=== PATIENT | female | born 1970 | race Caucasian/White ===

== ENCOUNTER 2020-05-14 15:41 | Emergency (ER) | payer BC, SELFPAY ==
[2020-05-14 15:42] VITALS: BP 123/74; PULSE 98; RESP 18; TEMP 36.6; O2SAT 98; BMI 29.0
--- NOTE | 2020-05-14 16:00 | CT_ITS ---
PROCEDURE: CT ABDOMEN PELVIS WO CON CLINICAL INDICATION: abd pain COMPARISON: No exams were available for comparison TECHNIQUE: Axial images obtained with sagittal and coronal reformats. All CT scans at the facility use one or more dose reduction, viz: automated exposure control, ma/kV adjustment per patient size (including targeted exams where dose is matched to indication, i.e. head), or iterative reconstruction technique. FINDINGS: LOWER THORAX: No acute finding ABDOMEN & PELVIS: There is fatty liver infiltration. No focal liver lesion is demonstrated. The gallbladder, spleen, adrenal glands, and pancreas have an unremarkable appearance. No intestinal obstruction or free air. Unremarkable appendix. No evidence diverticulitis. There has been a prior hysterectomy. There is a 5.6 cm cystic lesion in the left adnexa and a 3 cm cyst in the right adnexa.. No cul-de-sac fluid. No acute bony anomalies. Small bone island is present in the left femoral neck. IMPRESSION: 1. Prior hysterectomy. There are bilateral adnexal cysts measuring up to 5.6 cm on the left and 3 cm on the right consistent with bilateral ovarian cyst. Pelvic ultrasound may provide further evaluation 2. Otherwise negative Dictated by: Aki Parish MD 05/14/2020 16:53 Electronically signed by Aki Parish MD in [place] 05/14/2020 16:53
[2020-05-14 16:08] LABS: Microscopic, Urine URINE MICROSCOPIC (MICROSCOPIC)
[2020-05-14 16:09] LABS: Appearance,Urine CLEAR (Clear); Bilirubin,Urine Negative (Negative); Blood, Urine Negative (Negative); Color,Urine YELLOW (Yellow); Glucose,Urine (UA) Negative (Negative); Ketones,Urine Negative (Negative); Leukocyte Esterase,Urine Negative (Negative); Nitrate,Urine Negative (Negative); Protein,Urine Negative (Negative); Specific Gravity, Urine >= 1.030 (1.005-1.030); Urobilinogen,Urine 0.2 EU/dl (0.2)
[2020-05-14 16:14] LABS: WBC,Urine Occasional #/hpf (0-3)
[2020-05-14 16:23] LABS: Basophils # 0.1 K/mm3 (0-0.2); Basophils % 0.6 % (0.1-2.0); Eosinophils # 0.3 K/mm3 (0.0-0.4); Eosinophils % 2.7 % (0.1-12.0); Hematocrit 40.2 % (37.0-47.0); Hemoglobin 14.1 g/dL (12.2-16.2); Lymphocytes # 3.4 K/mm3 (0.7-4.5); Lymphocytes % 30.2 % (10-50); Mean Corpuscular HGB Conc 35.1 g/dL (31.8-35.4); Mean Corpuscular Hemoglobin 31.4 pg (27.0-31.2); Mean Corpuscular Volume 89.5 fl (81-99); Mean Platelet Volume 8.2 fl (7.4-10.4); Monocytes # 0.7 K/mm3 (0.1-1.0); Monocytes % 5.9 % (1.7-9.3); Neutrophils # 6.7 K/mm3 (1.8-7.8); Neutrophils % 60.6 % (37.0-80.0); Platelet Count 250 K/mm3 (142-424); Red Blood Count 4.49 M/mm3 (4.20-5.40); Red Cell Distribution Width 12.4 % (11.5-17.5); White Blood Count 11.1 K/mm3 (4.8-10.8)
--- NOTE | 2020-05-14 16:28 | PC.NURSE ---
Pt returned from rad.
[2020-05-14 16:29] LABS: Lipase 160 U/L (23-300)
[2020-05-14 16:30] LABS: Alanine Aminotransferase 30 U/L (12-78); Albumin Level 4.2 g/dl (3.5-5.0); Albumin/Globulin Ratio 1.3 (1.1-1.8); Alkaline Phosphatase 32 U/L (38-126); Amylase 84 U/L (30-110); Anion Gap 12.8 mEq/L (5-15); Aspartate Amino Transferase 39 U/L (14-36); Bilirubin,Total 0.6 mg/dl (0.2-1.3); Blood Urea Nitrogen 14 mg/dl (7-17); Calcium 9.7 mg/dl (8.4-10.2); Carbon Dioxide 26 mmol/L (22.0-30.0); Chloride 102 mmol/L (98-107); Creatinine Clearance Estimated 108 mL/min (50-200); Estimated Glomerular Filt Rate 76 ml/min (>60); GFR (African American) 92 ML/MIN (>60); Globulin 3.3 g/dL (1.3-3.2); Glucose 106 mg/dl (74-100); Potassium 3.8 mmoL/L (3.5-5.1); Sodium 137 mmol/L (136-145); Total Protein,Serum 7.5 g/dl (6.3-8.2)
[2020-05-14 16:35] LABS: C-Reactive Protein 5.7 mg/L (0-4)
[2020-05-14 16:58] LABS: Erythrocyte Sedimentation Rate 15 mm/hr (0-20)
--- NOTE | 2020-05-14 17:05 | HMH.EDABDPAI ---
ED Disposition Clinical Impression: Abdominal pain, IBS (irritable bowel syndrome) Disposition: Home, Self-Care Condition on Discharge: Good Instructions: DI for Chronic Pain -- Adult Prescriptions: Promethazine HCl [Phenergan 25mg tablet] 25 mg PO Q6HP PRN 8 Days #30 tab PRN Reason: Nausea Transmission Status: Pending to [id number] Hyoscyamine Sulfate 0.125 mg PO QID 10 Days #30 tab Transmission Status: Pending to [id number] Referrals: PCP,No [Primary Care Provider] - - Critical Care Critical Care Time: No Attestation: On 05/14/20, the high probability of a clinically significant, sudden or life threatening deterioration of the following system(s) required my full and direct attention, intervention and personal management. The time I documented below is in addition to time spent performing reported procedures but includes the following listed in this critical care notation. Medical Decision Making - Medical Records Medical records reviewed: Yes: I reviewed the patient's medical records. - Bandar Inquiry Pt receiving controlled substance: No Vital Signs: 05/14/20 15:42 Temperature 98 F Temperature Source Oral Pulse Rate [Left Radial] 98 H Respiratory Rate 18 Blood Pressure [Right Arm] 123/74 Blood Pressure Mean [Right Arm] 90 Blood Pressure Position [Right Arm] Sitting 02 Sat by Pulse Oximetry 98 Oxygen Delivery Method Room Air - Lab Data Lab results reviewed: Yes: I reviewed the patient's lab results. Lab Results 05/14/20 15:52: Urine Color Yellow, Urine Appearance Clear, Urine pH 6.0, Ur Specific [place] >= 1.030, Urine Protein Negative, Urine Glucose (UA) Negative, Urine Ketones Negative, Urine Blood Negative, Urine Nitrate Negative, Urine Bilirubin Negative, Urine Urobilinogen 0.2, Ur Leukocyte Esterase Negative, Urine RBC None, Urine WBC Occasional, Ur Squamous Epith Cells 5-10, Urine Bacteria None 05/14/20 16:05: WBC 11.1 H, RBC 4.49, Hgb 14.1, Hct 40.2, MCV 89.5, MCH 31.4 H, MCHC 35.1, RDW 12.4, Plt Count 250, MPV 8.2, Neut % (Auto) 60.6, Lymph % (Auto) 30.2, [place] % (Auto) 5.9, Eos % (Auto) 2.7, Baso % (Auto) 0.6, Neut # (Auto) 6.7, Lymph # (Auto) 3.4, [place] # (Auto) 0.7, Eos # (Auto) 0.3, Baso # (Auto) 0.1 05/14/20 16:05: Sodium 137, Potassium 3.8, Chloride 102, Carbon Dioxide 26, Anion Gap 12.8, BUN 14, Creatinine 0.80, Estimated Creat Clear 108, Estimated GFR 76, Est GFR ( Amer) 92, Glucose 106 H, Calcium 9.7, Total Bilirubin 0.6, AST 39 H, ALT 30, Alkaline Phosphatase 32 L, C-Reactive Protein 5.7 H, Total Protein 7.5, Albumin 4.2, Globulin 3.3 H, Albumin/Globulin Ratio 1.3, Amylase 84 05/14/20 16:05: ESR 15 05/14/20 16:05: Lipase 160 Result diagrams: 05/14/20 16:05 05/14/20 16:05 Orders (Tests/Meds): ED MEDICATIONS Generic Name Dose Route Start Last Admin Trade Name Freq PRN Reason Stop Dose Admin Sodium Chloride 1,000 mls @ 999 mls/hr 05/14/20 16:15 05/14/20 16:20 Sod Chlor 0.9% 1000ml Bag IV 05/14/20 17:15 999 mls/hr .Q1H1M AMIRAH Administration Discontinued Medications Generic Name Dose Route Start Last Admin Trade Name Freq PRN Reason Stop Dose Admin Hydromorphone HCl 1 mg 05/14/20 16:20 05/14/20 16:21 Dilaudid 2mg/Ml Syringe IV 05/14/20 16:21 1 mg ONCE ONE Administration Ondansetron HCl 4 mg 05/14/20 16:02 05/14/20 16:20 Zofran 4mg/2ml Vial IV 05/14/20 16:03 4 mg ONCE ONE Administration - CT Data CT Scan: Abdomen, Pelvis Time Received: 17:[address] Reviewed: Yes: I have reviewed the patient's CT results Preliminary Findings: Abnormal (Patient had a benign abdomen but did have a cyst on her right left ovary status post icterus hysterectomy) Abdominal Pain HPI - General Chief Complaint: Abdominal Pain Stated Complaint: Bad stomach pain two days, has IBS Time Seen by Provider: 05/14/20 17:05 Mode of Arrival: Ambulatory Limitations: No Limitations Description of Symptoms (Recalled from ER Triage Do
[2020-05-14 17:42] VITALS: BP 115/74; PULSE 78; RESP 16; TEMP 36.6; O2SAT 98
== END 2020-05-14 17:45 | disposition home or self-care (01) ==
PROVIDERS: Emergency Provider Family Medicine; PCP Physician Assistant
DX: K58.9 Irritable bowel syndrome, unspecified (principal)
CPT/HCPCS: 74176; 80053; 81001; 82150; 83690; 85025; 85651; 86140; 96365; 96374; 96375; 99283; J2405

== ENCOUNTER → 2020-05-18 15:33 | Outpatient (CLI) | payer BC, SELFPAY ==
--- NOTE | 2020-05-18 15:35 | US_ITS ---
PROCEDURE: US TRANSVAGINAL CLINICAL INDICATION: US T/V-f/u on ovarian cyst bilateral Large ovarian cyst was seen on recent CT exam. COMPARISON: CT ABDOMEN PELVIS WO CON from 05/14/2020 FINDINGS: Ultrasound evaluation of the female pelvis was performed transvaginally with real-time static grayscale and color Doppler imaging technique. UTERUS: Is surgically absent. LEFT OVARY: 6.4cmx5.0cmx5.1cm with a volume of 86.8ml. There is a 6.0 x 5.0 x 5.0 centimeter large cyst with a 2.9 x 2.4 centimeter daughter cyst with Doppler color flow along the cooney is seen. RIGHT OVARY: 4cmx 4mcq1dh with a volume of 10ml. There is a 2.5 x 1.3 centimeter unilocular cyst seen attached to the right ovary. Normal Doppler vascular color flow is seen in both ovaries. Neck No free fluid is seen within the pelvis. IMPRESSION: 1.A 6 centimeter large left ovarian cyst with internal septation or a 2.9 centimeter daughter cyst is seen, most likely benign. Follow-up with short-term ultrasound exam in 6 months recommended. 2. A 2.5 centimeter right ovarian simple cyst. 3. Prior hysterectomy. Dictated by: Pooja Robins 05/18/2020 16:25 Electronically signed by Pooja Robins in [place] 05/18/2020 16:25
== END ==
PROVIDERS: PCP Physician Assistant; Visit Provider Obstetrics & Gynecology
DX: N83.209 Unspecified ovarian cyst, unspecified side (principal)
CPT/HCPCS: 76830

== ENCOUNTER → 2020-05-20 14:27 | Outpatient (CLI) | payer BC, SELFPAY ==
[2020-05-20 15:42] LABS: Chloride 101 mmol/L (98-107); Potassium 3.9 mmoL/L (3.5-5.1); Sodium 138 mmol/L (136-145)
[2020-05-20 15:44] LABS: HCG Qualitative, Serum Negative (Negative)
[2020-05-20 15:45] LABS: Alanine Aminotransferase 20 U/L (12-78); Albumin Level 4.2 g/dl (3.5-5.0); Albumin/Globulin Ratio 1.4 (1.1-1.8); Alkaline Phosphatase 27 U/L (38-126); Anion Gap 13.9 mEq/L (5-15); Aspartate Amino Transferase 26 U/L (14-36); Bilirubin,Total 0.4 mg/dl (0.2-1.3); Blood Urea Nitrogen 10 mg/dl (7-17); Calcium 9.6 mg/dl (8.4-10.2); Carbon Dioxide 27 mmol/L (22.0-30.0); Estimated Glomerular Filt Rate 89 ml/min (>60); GFR (African American) 107 ML/MIN (>60); Globulin 2.9 g/dL (1.3-3.2); Glucose 124 mg/dl (74-100); Total Protein,Serum 7.1 g/dl (6.3-8.2)
[2020-05-20 16:58] LABS: Coronavirus 19 IgG Antibody Negative (Negative); Coronavirus 19 IgM Antibody Negative (Negative)
[2020-05-20 18:51] LABS: Basophils # 0.1 K/mm3 (0-0.2); Basophils % 0.6 % (0.1-2.0); Eosinophils # 0.3 K/mm3 (0.0-0.4); Hematocrit 38.6 % (37.0-47.0); Hemoglobin 13.9 g/dL (12.2-16.2); Lymphocytes % 31.7 % (10-50); Mean Corpuscular HGB Conc 36.1 g/dL (31.8-35.4); Mean Corpuscular Hemoglobin 32.7 pg (27.0-31.2); Mean Corpuscular Volume 90.7 fl (81-99); Mean Platelet Volume 9.5 fl (7.4-10.4); Monocytes # 0.5 K/mm3 (0.1-1.0); Monocytes % 3.9 % (1.7-9.3); Neutrophils # 7.7 K/mm3 (1.8-7.8); Neutrophils % 61.8 % (37.0-80.0); Platelet Count 237 K/mm3 (142-424); Red Blood Count 4.25 M/mm3 (4.20-5.40); White Blood Count 12.5 K/mm3 (4.8-10.8)
[2020-05-22 19:23] LABS: Cancer Antigen (CA) 125 10.5 U/mL (0.0-38.1); FSH 4.4 mIU/mL (.)
== END ==
PROVIDERS: Visit Provider Obstetrics & Gynecology
DX: Z01.818 Encounter for other preprocedural examination (principal); N83.209 Unspecified ovarian cyst, unspecified side; R10.2 Pelvic and perineal pain; N80.9 Endometriosis, unspecified
CPT/HCPCS: 36415; 80053; 83001; 84703; 85025; 86316; 86328

== ENCOUNTER 2020-05-21 08:49 | Day surgery (SDC) | payer BC, SELFPAY ==
[2020-05-21] VITALS (12 sets, daily range): BP systolic 91–126; BP diastolic 69–86; PULSE 65–93; RESP 12–18; TEMP 36.8–37.2; O2SAT 93–99; BMI 30.7
--- NOTE | 2020-05-21 13:00 | HMH.ANESI ---
[facility] Anesthesia Record Part I Intake, IV Amount: 900 Estimated blood loss (mL): 30 Urine output (mL): 0 (NM) Blood Products used (#): none Blood Pressure: 91/69 SaO2: 96 Pulse Rate: 93 Respiratory Rate: 12 Temperature: 99 F Patient is:: Awake, Drowsy, Nasal O2, Stable Stable to PACU at:: 12:52
--- NOTE | 2020-05-21 13:04 | P.PN_ITS ---
[facility] Anesthesia Checklist - Patient Identification Patient Identification: Arm Band, Verbal (Name & ) - Structural Data Admitted From: Home Planned Operative Procedure/s: Diagnostic laparoscopy, LSO Consent for Planned Operative Procedure(s) Verified: Yes Verified Documents: Surgical Consent, History and Physical - NPO Status Verified Time NPO: 19:00 - Chart Verification Results Verified: CBC, BMP, UA - Additional verifications Anesthesia Reactions: No Hx Blood Transfusions: No Blood Transfusion Reaction: No - Airway Assessment C-Spine Mobility Assessed: Yes TMJ Mobility Assessed: Yes Dentition: Good Dentition (missing) - Neurological Assessment Level of Consciousness: Awake, Alert, Appropriate, Follows Commands Hx Seizures: No Numbness or tingling in extremities: No - Anesthesia Plan Anesthesia Risk discussed: Yes Anesthesia Plan: Verified ASA Class: II Anesthesia Type: General [facility] History I have reviewed the patient's past medical history: Yes Medical History: Reports:: Anxiety, Depression, Gastroesophageal Reflux Disease(GERD), Hyperlipidemia, Hypertension Denies:: Cancer, Diabetes Mellitus Type 1, Diabetes Mellitus Type 2, Internal Pacemaker, MRSA, Seizures *Have you ever received a pneumonia vaccine?: No *Have you received a flu vaccine this season?: Yes Other Medical History: Denies: Blood Transfusion Reaction Comment:: obesity Anesthesia experience/problems:: No prior complications Laterality Cases: Right: Arthroscopy Knee, Arthroscopy Shoulder Other Surgeries: Yes: Hysterectomy-Partial. No: Pacemaker Amputation: No Fractures: No - *Social History Last grade of school completed: GED Smoking Status: Never smoker Alcohol Intake: never Substance Use Type: denies use *Occupational Status:: employed Housing: house Household Members: spouse *Travel in the last 8 weeks: None Family Hx:: Cancer, Diabetes, Heart Attack, Hyperlipidemia, Hypertension
--- NOTE | 2020-05-21 15:13 | P.OP_ITS ---
Date of procedure: 05/21/20 Pre-op Diagnosis:: 1. Pelvic pain 2. Left adnexal mass 3. Endometriosis 4. Prior hysterectomy Post-op Diagnosis:: 1. Pelvic pain 2. Left adnexal mass 3. Endometriosis 4. Prior hysterectomy 5. Pelvic adhesions Procedure performed:: Diagnostic laparoscopy Left salpingo-oophorectomy Lysis of adhesions Surgeon:: Sarah Beth Mariee MD INSURANCE SALES SUPERVISOR:: Ricky Hernandez Anesthesia: GETA Estimated blood loss (mL): 30 Operative findings:: enlarged left ovary, adhesed to left pelvic sidewall normal appearing right ovary Operative note:: The patient was taken to the operating room and general anesthesia was administered. She was prepped/draped in lithotomy position. A sponge stick was placed in the vagina. Gloves were changed and attention was turned to the abdomen. A 5mm skin incision was made in the umbilical fold and the verees needle was inserted through the peritoneum and into the abdominal cavity in standard fashion. The abdomen was insufflated with CO2 gas. A 5mm non-bladed trocar was inserted directly into the abdominal cavity and appropriate placement was confirmed with the laparoscope. No intra-abdominal injuries occurred during entry into the abdominal cavity, as confirmed visually with the laparoscope. The patient was placed in trendelenburg and a 10mm skin incision was made 2cm above the pubic symphysis. A 10mm non-bladed trocar was inserted under direct visualization, without complication. A survey of the pelvis and abdomen revealed the findings noted above. Pelvic washings were obtained. A 5mm skin incision was made in the left lower quadrant and a non-bladed trocar was inserted under direct visualization, without complication. The adnexal mass was slowly dissected off the left pelvic sidewall, using both sharp and blunt dissection. During this dissection, a portion of the mass ruptured and clear fluid drained out of it. Once the ovary was freed from the sidewall, it was excised using the harmonic scalpel. The mass was removed through the suprapubic incision with the assistance of an endobag. The pelvis was copiously irrigated and the pedicle remained hemostatic. Caro was placed over the pedicle and areas of dissection. The abdomen was then evacuated of gas and all trocars removed. The fascia of the suprapubic incision was closed with 2-0 vicryl. The skin incisions were closed with dermabond. The vaginal sponge stick was removed. All sponge/lap/needle/instrument counts correct. Total EBL: 30 cc. The patient was taken out of lithotomy position, extubated and taken to the PACU in stable condition. Condition: stable Disposition: PACU Complications:: None
--- NOTE | 2020-05-21 15:20 | HMH.ANESII ---
[facility] Anesthesia Record Part II Discharge Time: 13:22 Destination: Surgical Day Care (OP Surgery) PACU nurse assessment reviewed?: Yes Patient Condition:: Good Anesthesia Complications:: None Swallowing reflex intact?: Yes Cyanosis?: No Blood Pressure: 113/74 Pulse Rate: 75 Temperature: 99 F Mental Status: Alert & Oriented Pain level:: 0 Nausea and/or vomitting:: None Intake, IV Amount: 0
== END 2020-05-21 14:08 | disposition home or self-care (01) ==
LOC: OR 08:50
PROVIDERS: PCP Physician Assistant; Visit Provider Obstetrics & Gynecology
PROC: (CPT 58661; principal; 2020-05-21 11:00)
DX: N83.8 Other noninflammatory disorders of ovary, fallopian tube and broad ligament (principal); K66.0 Peritoneal adhesions (postprocedural) (postinfection); Z90.710 Acquired absence of both cervix and uterus; E78.5 Hyperlipidemia, unspecified; I10 Essential (primary) hypertension; F41.9 Anxiety disorder, unspecified; F32.9 Major depressive disorder, single episode, unspecified; K21.9 Gastro-esophageal reflux disease without esophagitis; Z87.39 Personal history of other diseases of the musculoskeletal system and connective tissue; Z82.49 Family history of ischemic heart disease and other diseases of the circulatory system; Z83.438 Family history of other disorder of lipoprotein metabolism and other lipidemia; Z83.3 Family history of diabetes mellitus; Z80.9 Family history of malignant neoplasm, unspecified; Z82.3 Family history of stroke
CPT/HCPCS: 58661; 96374; J2405; J2710

== ENCOUNTER → 2021-01-14 14:30 | Outpatient (CLI) | payer BC, SELFPAY ==
--- NOTE | 2021-01-14 14:39 | US_ITS ---
PROCEDURE: US TRANSVAGINAL CLINICAL INDICATION: pelvic pain COMPARISON: US US TRANSVAGINAL from 05/18/2020 FINDINGS: THERE HAS BEEN A PRIOR HYSTERECTOMY AND LEFT OOPHORECTOMY. RIGHT OVARY: [id number] with a volume of 48ml. Three cysts are present within the right ovary measuring 3.6 x 2.3, 2.8 x 1 4, and 1.7 x 1.2 cm. Blood flow is present to the right ovary. No cul-de-sac fluid. The vaginal cuff has an unremarkable appearance. IMPRESSION: Prior left oophorectomy and hysterectomy. Three benign-appearing right ovarian cyst. Consider follow-up to confirm stability or resolution Dictated by: Aki Parish MD 01/14/2021 16:32 Aki Parish MD in [place] 01/14/2021 16:32
== END ==
PROVIDERS: PCP Physician Assistant; Visit Provider Obstetrics & Gynecology
DX: R10.2 Pelvic and perineal pain (principal)
CPT/HCPCS: 76830

== ENCOUNTER → 2021-02-15 13:22 | Outpatient (CLI) | payer BC, SELFPAY ==
[2021-02-15 14:08] LABS: Urine Pregnancy, HCG Qual. Negative (Negative)
[2021-02-15 14:29] LABS: Basophils # 0.1 K/mm3 (0-0.2); Basophils % 0.6 % (0.1-2.0); Eosinophils # 0.2 K/mm3 (0.0-0.4); Hematocrit 38.6 % (37.0-47.0); Lymphocytes # 3.6 K/mm3 (0.7-4.5); Lymphocytes % 37.2 % (10-50); Mean Corpuscular HGB Conc 33.7 g/dL (31.8-35.4); Mean Corpuscular Hemoglobin 29.9 pg (27.0-31.2); Mean Corpuscular Volume 88.6 fl (81-99); Monocytes # 0.4 K/mm3 (0.1-1.0); Monocytes % 4.4 % (1.7-9.3); Neutrophils # 5.4 K/mm3 (1.8-7.8); Neutrophils % 55.8 % (37.0-80.0); Platelet Count 300 K/mm3 (142-424); Red Blood Count 4.35 M/mm3 (4.20-5.40); Red Cell Distribution Width 13.2 % (11.5-17.5); White Blood Count 9.6 K/mm3 (4.8-10.8)
[2021-02-15 14:34] LABS: Chloride 106 mmol/L (98-107); Potassium 4.2 mmoL/L (3.5-5.1); Sodium 139 mmol/L (136-145)
[2021-02-15 14:37] LABS: Alanine Aminotransferase 34 U/L (12-78); Albumin Level 4.7 g/dl (3.5-5.0); Albumin/Globulin Ratio 1.6 (1.1-1.8); Alkaline Phosphatase 38 U/L (38-126); Anion Gap 15.2 mEq/L (5-15); Aspartate Amino Transferase 36 U/L (14-36); Bilirubin,Total 0.6 mg/dl (0.2-1.3); Blood Urea Nitrogen 8 mg/dl (7-17); Carbon Dioxide 22 mmol/L (22.0-30.0); Estimated Glomerular Filt Rate 76 ml/min (>60); GFR (African American) 92 ML/MIN (>60); Globulin 2.9 g/dL (1.3-3.2); Total Protein,Serum 7.6 g/dl (6.3-8.2)
[2021-02-15 14:38] LABS: Calcium 9.8 mg/dl (8.4-10.2); Glucose 100 mg/dl (74-100)
[2021-02-15 15:18] LABS: Coronavirus 19 IgG Antibody Negative (Negative); Coronavirus 19 IgM Antibody Negative (Negative)
== END ==
PROVIDERS: Visit Provider Obstetrics & Gynecology
DX: Z01.812 Encounter for preprocedural laboratory examination (principal); Z11.52 Encounter for screening for COVID-19; R10.2 Pelvic and perineal pain
CPT/HCPCS: 36415; 80053; 81025; 85025; 86328

== ENCOUNTER 2021-02-17 06:55 | Day surgery (SDC) | payer BC, SELFPAY ==
[2021-02-15 11:21] VITALS: BMI 32.3
[2021-02-17] VITALS (12 sets, daily range): BP systolic 107–156; BP diastolic 47–83; PULSE 59–76; RESP 12–18; TEMP 36.2–42.7; O2SAT 94–99
--- NOTE | 2021-02-17 08:48 | HMH.ANESCL ---
[facility] Anesthesia Checklist - Patient Identification Patient Identification: Arm Band - Structural Data Admitted From: Home Planned Operative Procedure/s: Diagnostic lap. with BSO Consent for Planned Operative Procedure(s) Verified: Yes - NPO Status Verified Time NPO: 00:00 - Chart Verification Results Verified: HCG (Negative) - Additional verifications Anesthesia Reactions: No Hx Blood Transfusions: No Blood Transfusion Reaction: No - Airway Assessment C-Spine Mobility Assessed: Yes TMJ Mobility Assessed: Yes Dentition: Good Dentition - Neurological Assessment Level of Consciousness: Awake, Alert Hx Seizures: No Numbness or tingling in extremities: No - Anesthesia Plan Anesthesia Risk discussed: Yes Anesthesia Plan: Verified ASA Class: II Anesthesia Type: General [facility] History I have reviewed the patient's past medical history: Yes Medical History: Reports:: Anxiety, Depression, Gastroesophageal Reflux Disease(GERD), Hyperlipidemia, Hypertension Denies:: Cancer, Diabetes Mellitus Type 1, Diabetes Mellitus Type 2, Internal Pacemaker, MRSA, Seizures *Have you ever received a pneumonia vaccine?: No *Have you received a flu vaccine this season?: Yes Other Medical History: Denies: Blood Transfusion Reaction Anesthesia experience/problems:: None Laterality Cases: Right: Arthroscopy Knee, Arthroscopy Shoulder Other Surgeries: Yes: Hysterectomy-Partial. No: Pacemaker Amputation: No Fractures: No - *Social History Last grade of school completed: GED Smoking Status: Former smoker Alcohol Intake: never Substance Use Type: denies use *Occupational Status:: employed Housing: house Household Members: spouse *Travel in the last 8 weeks: None - Psychiatric History Pschychiatric History:: Reports:: Anxiety, Depression Family Hx:: Cancer, Diabetes, Heart Attack, Hyperlipidemia, Hypertension
--- NOTE | 2021-02-17 11:40 | P.PN_ITS ---
[facility] Anesthesia Record Part I Intake, IV Amount: 1,500 Estimated blood loss (mL): 25 Urine output (mL): 0 Blood Pressure: 136/47 SaO2: 94 Pulse Rate: 76 Respiratory Rate: 12 Temperature: 97.9 F Patient is:: Awake, Drowsy Stable to PACU at:: 11:36
--- NOTE | 2021-02-17 12:47 | HMH.OPNOTE ---
Date of procedure: 02/17/21 Pre-op Diagnosis:: 1. Right ovarian cyst 2. Pelvic pain Post-op Diagnosis:: 1. Right ovarian cyst 2. Pelvic pain 3. Pelvic adhesions Procedure performed:: Diagnostic laparoscopy Right salpingo-oophorectomy Lysis of dense adhesions Surgeon:: Sarah Beth Mariee MD COMMUNITY LIVING SPECIALIST:: Other Anesthesia: GETA Estimated blood loss (mL): 25 Operative findings:: previous hysterectomy and LSO right ovary and fallopian tube densely adhesed to lower pelvis and sidewall Operative note:: The patient was taken to the operating room and general anesthesia was administered. She was prepped/draped in lithotomy position. A sponge stick was placed in the vagina. Gloves were changed and attention was turned to the abdomen. A 5mm skin incision was made in the umbilical fold and the verees needle was inserted through the peritoneum and into the abdominal cavity in standard fashion. The abdomen was insufflated with CO2 gas. A 5mm non-bladed trocar was inserted directly into the abdominal cavity and appropriate placement was confirmed with the laparoscope. No intra-abdominal injuries occurred during entry into the abdominal cavity, as confirmed visually with the laparoscope. The patient was placed in trendelenburg and a 5mm skin incision was made 2cm above the pubic symphysis. A 5mm non-bladed trocar was inserted under direct visualization, without complication. The uterus was elevated out of the pelvis in order to better visualize the anatomy. A survey of the pelvis and abdomen revealed the findings noted above. A 11mm skin incision was made in the left lower quadrant and a non-bladed trocar was inserted under direct visualization, without complication. A 5mm skin incision was made in the RLQ and a 5mm non-bladed trocar inserted under direct visualization. The bowel was retracted out of the pelvis and the right ovary was grasped. Sharp and blunt dissection were used to liberate the ovary from the pelvic sidewall. The ovary and fallopian tube were excised using the harmonic scalpel and removed through an endobag. The specimen was sent for pathology. Caro and surgicell were placed over the pedicle and dissection area. The abdomen was then evacuated of gas and all trocars removed. The LLQ incision fascia was closed with 0-vicryl. All skin incisions were closed with 4-0 monocryl. The sponge stick was removed from the vagina. All sponge/lap/needle/instrument counts correct for both abdominal and vaginal procedures. Total EBL: 25 cc. The patient was taken out of lithotomy position, extubated and taken to the PACU in stable condition. Condition: stable Disposition: PACU Specimens:: right ovary and fallopian tube Complications:: none
--- NOTE | 2021-02-21 08:32 | HMH.ANESII ---
[facility] Anesthesia Record Part II Discharge Time: 12:16 Destination: Surgical Day Care (OP Surgery) PACU nurse assessment reviewed?: Yes Patient Condition:: Good Anesthesia Complications:: None Swallowing reflex intact?: Yes Cyanosis?: No Blood Pressure: 107/71 Pulse Rate: 63 Temperature: 97.7 F Mental Status: Alert & Oriented Pain level:: 2 Nausea and/or vomitting:: None Intake, IV Amount: 0
[2021-02-21 08:33] VITALS: BP 107/71; PULSE 63; TEMP 36.5
== END 2021-02-17 12:30 | disposition home or self-care (01) ==
PROVIDERS: PCP Physician Assistant; Visit Provider Obstetrics & Gynecology
PROC: (CPT 58661; principal; 2021-02-17 08:30)
DX: N83.201 Unspecified ovarian cyst, right side (principal); Z90.711 Acquired absence of uterus with remaining cervical stump; Z90.79 Acquired absence of other genital organ(s); N73.6 Female pelvic peritoneal adhesions (postinfective); F41.9 Anxiety disorder, unspecified; F32.9 Major depressive disorder, single episode, unspecified; K21.9 Gastro-esophageal reflux disease without esophagitis; E78.5 Hyperlipidemia, unspecified; I10 Essential (primary) hypertension; Z87.39 Personal history of other diseases of the musculoskeletal system and connective tissue; Z80.9 Family history of malignant neoplasm, unspecified; Z82.49 Family history of ischemic heart disease and other diseases of the circulatory system
CPT/HCPCS: 58661; 96374; J0131; J2405; J2710

== ENCOUNTER 2021-04-26 12:48 | Observation (INO) | payer BC, SELFPAY ==
[2021-04-26] VITALS (9 sets, daily range): BP systolic 119–148; BP diastolic 66–95; PULSE 64–76; RESP 12–19; TEMP 36.3–36.7; O2SAT 95–100; BMI 30.7; BMI 32.1
--- NOTE | 2021-04-26 12:49 | ECG_ITS ---
APPROVED REPORT Exam: Resting ECG HR:61 bpm ECG Measurements Heart Rate 61 AXES DC 174 P 49 QRSd 82 QRS 37 QT 486 T 60 QTc 489 Conclusion Normal sinus rhythm Prolonged QT Abnormal ECG Electronically signed by : Len Avelar, 04/26/2021 17:42:30
--- NOTE | 2021-04-26 12:53 | XR_ITS ---
PROCEDURE: XR CHEST PORTABLE CLINICAL HISTORY: chest pain COMPARISON: No exams were available for comparison FINDINGS: Borderline cardiomegaly without failure. The lungs are clear without infiltrates, suspicious nodules, or pleural effusions. Nodular opacity noted in the right upper lobe overlying the 1st rib and may be due to hypertrophy of the rib end and could be confirmed with follow-up. Somewhat similar appearance on the left but obviously due to the rib end on the left. No acute bony findings. IMPRESSION: No acute finding. Please see above for detail Dictated by: Aki Parish MD 04/26/2021 13:38 Aki Parish MD in [place] 04/26/2021 13:38
[2021-04-26 13:13] LABS: Chloride 106 mmol/L (98-107); Potassium 3.9 mmoL/L (3.5-5.1); Sodium 138 mmol/L (136-145)
[2021-04-26 13:16] LABS: Anion Gap 15.9 mEq/L (5-15); Basophils # 0.1 K/mm3 (0-0.2); Basophils % 0.7 % (0.1-2.0); Blood Urea Nitrogen 13 mg/dl (7-17); Calcium 9.9 mg/dl (8.4-10.2); Carbon Dioxide 20 mmol/L (22.0-30.0); Creatinine Clearance Estimated 113 mL/min (50-200); Eosinophils # 0.3 K/mm3 (0.0-0.4); Eosinophils % 2.6 % (0.1-12.0); Estimated Glomerular Filt Rate 76 ml/min (>60); GFR (African American) 92 ML/MIN (>60); Glucose 108 mg/dl (74-100); Hematocrit 37.4 % (37.0-47.0); Hemoglobin 12.5 g/dL (12.2-16.2); Lymphocytes # 3.8 K/mm3 (0.7-4.5); Lymphocytes % 36.1 % (10-50); Mean Corpuscular HGB Conc 33.5 g/dL (31.8-35.4); Mean Corpuscular Hemoglobin 29.2 pg (27.0-31.2); Mean Corpuscular Volume 87.3 fl (81-99); Mean Platelet Volume 8.8 fl (7.4-10.4); Monocytes # 0.5 K/mm3 (0.1-1.0); Monocytes % 4.3 % (1.7-9.3); Neutrophils # 5.9 K/mm3 (1.8-7.8); Neutrophils % 56.3 % (37.0-80.0); Platelet Count 245 K/mm3 (142-424); Red Blood Count 4.28 M/mm3 (4.20-5.40); Red Cell Distribution Width 13.6 % (11.5-17.5); White Blood Count 10.5 K/mm3 (4.8-10.8)
[2021-04-26 13:30] LABS: Troponin I < 0.01 ng/ml (0.00-0.034)
--- NOTE | 2021-04-26 14:03 | HMH.EDGENADL ---
ED Disposition Clinical Impression: Chest pain, precordial Disposition: Admitted as Observation Condition on Discharge: Good - Critical Care Critical Care Time: No Attestation: On 04/26/21, the high probability of a clinically significant, sudden or life threatening deterioration of the following system(s) required my full and direct attention, intervention and personal management. The time I documented below is in addition to time spent performing reported procedures but includes the following listed in this critical care notation. Medical Decision Making - Bandar Inquiry Pt receiving controlled substance: No Vital Signs: 04/26/21 12:48 04/26/21 14:30 04/26/21 15:00 Temperature 97.4 F L Temperature Source Oral Pulse Rate 64 64 Pulse Rate [Right Radial] 64 Respiratory Rate 18 19 12 Blood Pressure 134/92 H 143/92 H Blood Pressure [Right Arm] 126/88 Blood Pressure Mean 101 109 Blood Pressure Mean [Right Arm] 100 Blood Pressure Source [Right Arm] Automatic Cuff Blood Pressure Position [Right Arm] Sitting 02 Sat by Pulse Oximetry 99 97 Oxygen Delivery Method Room Air 04/26/21 15:32 04/26/21 16:01 Temperature Temperature Source Pulse Rate 76 67 Pulse Rate [Right Radial] Respiratory Rate 17 13 Blood Pressure 140/80 Blood Pressure [Right Arm] Blood Pressure Mean 100 Blood Pressure Mean [Right Arm] Blood Pressure Source [Right Arm] Blood Pressure Position [Right Arm] 02 Sat by Pulse Oximetry 98 95 Oxygen Delivery Method - Lab Data Lab Results 04/26/21 12:57: WBC 10.5, RBC 4.28, Hgb 12.5, Hct 37.4, MCV 87.3, MCH 29.2, MCHC 33.5, RDW 13.6, Plt Count 245, MPV 8.8, Neut % (Auto) 56.3, Lymph % (Auto) 36.1, [place] % (Auto) 4.3, Eos % (Auto) 2.6, Baso % (Auto) 0.7, Neut # (Auto) 5.9, Lymph # (Auto) 3.8, [place] # (Auto) 0.5, Eos # (Auto) 0.3, Baso # (Auto) 0.1 04/26/21 12:57: Sodium 138, Potassium 3.9, Chloride 106, Carbon Dioxide 20 L, Anion Gap 15.9 H, BUN 13, Creatinine 0.80, Estimated Creat Clear 113, Estimated GFR 76, Est GFR ( Amer) 92, Glucose 108 H, Calcium 9.9, Troponin I < 0.01 04/26/21 15:00: SARS-CoV-2 (PCR) Not detected, Influenza A Untype (PCR) Not detected, Influenza Type B (PCR) Not detected Result diagrams: 04/26/21 12:57 04/26/21 12:57 Orders (Tests/Meds): ED MEDICATIONS Discontinued Medications Generic Name Dose Route Start Last Admin Trade Name Niurka PRN Reason Stop Dose Admin Aspirin 324 mg 04/26/21 12:54 04/26/21 13:58 Aspirin 81mg Chewable Tablet PO 04/26/21 12:55 324 mg ONCE ONE Administration ORDERS Category Date Time Status Consult to Cardiology [CONS] Routine Cons 04/26/21 14:17 Active Troponin I Q3H Lab 04/26/21 15:52 Received Troponin I Q3H Lab 04/26/21 19:00 Ordered Lexiscan Stress Test [NM arvin perf SPECT rest & str] Nuc Med 04/26/21 15:16 Ordered Routine - Radiology Data #1 Image(s): Chest Image Reviewed: Yes I have reviewed radiologist's interpretation PROCEDURE: XR CHEST PORTABLE CLINICAL HISTORY: chest pain COMPARISON: No exams were available for comparison FINDINGS: Borderline cardiomegaly without failure. The lungs are clear without infiltrates, suspicious nodules, or pleural effusions. Nodular opacity noted in the right upper lobe overlying the 1st rib and may be due to hypertrophy of the rib end and could be confirmed with follow-up. Somewhat similar appearance on the left but obviously due to the rib end on the left. No acute bony findings. IMPRESSION: No acute finding. Please see above for detail Dictated by: Aki Parish MD 04/26/2021 13:38 Aki Parish MD in [place] 04/26/2021 13:38 - ECG Data Tracing #1 EKG interpreted by Hao Helm MD: Rhythm: sinus Rate: 61 [place]: normal Ectopy: none Conduction: QTC [address] Segment Changes: none T Wave Changes: none Q Waves: none No evidence of acute ischemia or injury - Physi
--- NOTE | 2021-04-26 14:15 | PC.NURSE ---
Cardiology called for consult on patient
--- NOTE | 2021-04-26 14:33 | PC.NURSE ---
per jasbir salomonn for cardiology wants pt admitted and will schedule pt for a stress test tomorrow
--- NOTE | 2021-04-26 14:50 | HMH.CNCARD ---
History of Present Illness Consult date: 04/26/21 Requesting physician: Hao Helm Consult reason: chest pain Chief complaint: Chest pain History of present illness: 50-year-old female presented to emergency department with midsternal chest pain. Patient states for the past 2 to 3 weeks she has been having midsternal chest pain with non radiation. Patient states the pain will come and go lasting for only a few seconds. States this morning the pain was lasting longer than usual and was not relieved with rest. When patient arrived to the emergency room she was given a baby aspirin and states the pain in her chest eased and improved. During this assessment patient denied chest pain, tightness or pressure. Patient states shortness of breath does accompanying the chest pain. Patient states she normally does not have shortness of breath with exertion. Patient states she is very active with daily activities. No exercise regimen noted. No swelling noted of the lower extremities. Patient does complain of dizziness especially with position change. Complains of nausea with no vomiting. Patient denies palpitations. EKG revealed normal sinus rhythm, prolonged QT, abnormal EKG with a heart rate of 61 bpm. Vital signs are stable. Serial troponins have been drawn. Troponin x1 is negative. Patient does have history of hypertension in which she states normally controlled with propanolol. Patient does have history of hyperlipidemia. Patient is on statin therapy. Discussed plan of care with Dr. Valencia. Orders were received from Dr. Valencia. Admit pt overnight for observation under PCP. Will schedule Lexiscan myoview in the morning due to typical angina. Will order Echocardiogram to assess LV function and valve status. Continue home medications. NPO after midnight tonight. Please notify cardiology of any changes in pt's status. Thank you for allowing cardiology to participate in the care of this pt. [facility] History I have reviewed the patient's past medical history: Yes Medical History: Reports:: Anxiety, Depression, Gastroesophageal Reflux Disease(GERD), Hyperlipidemia, Hypertension Denies:: Cancer, Diabetes Mellitus Type 1, Diabetes Mellitus Type 2, Internal Pacemaker, MRSA, Seizures *Have you ever received a pneumonia vaccine?: No *Have you received a flu vaccine this season?: No Other Medical History: Denies: Blood Transfusion Reaction Laterality Cases: Right: Arthroscopy Knee, Arthroscopy Shoulder Other Surgeries: Yes: Hysterectomy-Partial. No: Pacemaker Amputation: No Fractures: No - *Social History Smoking Status: Former smoker Alcohol Intake: never Substance Use Type: denies use *Occupational Status:: employed Housing: house Household Members: spouse *Travel in the last 8 weeks: Inside the [place] - Psychiatric History Pschychiatric History:: Reports:: Anxiety, Depression Family Hx:: Cancer, Diabetes, Heart Attack, Hyperlipidemia, Hypertension Meds Home Medications Medication Instructions Recorded Confirmed Type aspirin 81 mg tablet,delayed 81 mg PO DAILY 04/15/20 04/26/21 History release clonazepam 0.5 mg tablet 0.5 mg PO DAILY tab 04/15/20 04/26/21 History propranolol 60 mg capsule,24 60 ea PO DAILY 04/15/20 04/26/21 History hr,extended release sertraline 50 mg tablet 50 mg PO DAILY tab 04/15/20 04/26/21 History atorvastatin 10 mg tablet 10 mg PO DAILY tab 05/20/20 04/26/21 History topiramate 25 mg tablet 25 mg PO DAILY 01/13/21 04/26/21 History Famotidine [Pepcid] 20 mg PO DAILY 02/15/21 04/26/21 History estradioL [Estradiol] 1 mg PO DAILY 04/26/21 04/26/21 History Allergies Allergy/AdvReac Type Severity Reaction Status Date / Time Sulfa (Sulfonamide Allergy Severe stopped Verified 02/24/21 14:36 Antibiotics) breathing, throat swells Exam Vital signs and Labs for Last 24 Hours: Temp Pulse Resp BP Pulse Ox 97.4 F L 64 19 134/92 H 97 04/26/21 12:48 07/0
--- NOTE | 2021-04-26 15:08 | PC.NURSE ---
here to do echo on pt
[2021-04-26 15:23] LABS: Coronavirus 19, PCR Not Detected (NotDetected); Influenza A, PCR Not Detected (NotDetected); Influenza B, PCR Not Detected (NotDetected)
--- NOTE | 2021-04-26 15:34 | PC.NURSE ---
LAKEISHA CASTELAN speaking with Dr. Avelar who is clinical nutrition manager for service pts
--- NOTE | 2021-04-26 16:00 | PC.NURSE ---
bed assignment requested, room 210. all staff notified
[2021-04-26 16:57] LABS: Troponin I < 0.01 ng/ml (0.00-0.034)
--- NOTE | 2021-04-26 17:09 | PC.NURSE ---
waiting on return call from candido to give report
--- NOTE | 2021-04-26 17:14 | PC.NURSE ---
report called to nat hernandez on second floor at this time states she will send staff down to get pt
--- NOTE | 2021-04-26 17:50 | HMH.HP ---
*Admission Date: 04/26/21 *Chief complaint: Chest pain *History of present illness: 50-year-old female presented to emergency department with midsternal chest pain. Patient states for the past 2 to 3 weeks she has been having midsternal chest pain with non radiation. Patient states the pain will come and go lasting for only a few seconds. States this morning the pain was lasting longer than usual and was not relieved with rest. When patient arrived to the emergency room she was given a baby aspirin and states the pain in her chest eased and improved. During this assessment patient denied chest pain, tightness or pressure. Patient states shortness of breath does accompanying the chest pain. Patient states she normally does not have shortness of breath with exertion. Patient states she is very active with daily activities. No exercise regimen noted. No swelling noted of the lower extremities. Patient does complain of dizziness especially with position change. Complains of nausea with no vomiting. Patient denies palpitations. EKG revealed normal sinus rhythm, prolonged QT, abnormal EKG with a heart rate of 61 bpm. Vital signs are stable. Serial troponins have been drawn. Troponin x1 is negative. Patient does have history of hypertension in which she states normally controlled with propanolol. Patient does have history of hyperlipidemia. Patient is on statin therapy. Patient notes that previous episodes of chest pain over the past couple of weeks have been controlled with her anxiety medication and she thought it might have been stress. This episode lasted quite a bit longer than normal. [facility] History I have reviewed the patient's past medical history: Yes Medical History: Reports:: Anxiety, Depression, Gastroesophageal Reflux Disease(GERD), Hyperlipidemia, Hypertension Denies:: Cancer, Diabetes Mellitus Type 1, Diabetes Mellitus Type 2, Internal Pacemaker, MRSA, Seizures *Have you ever received a pneumonia vaccine?: No *Have you received a flu vaccine this season?: No Other Medical History: Denies: Blood Transfusion Reaction Laterality Cases: Right: Arthroscopy Knee, Arthroscopy Shoulder Other Surgeries: Yes: Hysterectomy-Partial. No: Pacemaker Amputation: No Fractures: No - *Social History Smoking Status: Former smoker Alcohol Intake: never Substance Use Type: denies use *Occupational Status:: employed Housing: house Household Members: spouse *Travel in the last 8 weeks: Inside the [facility] - Psychiatric History Pschychiatric History:: Reports:: Anxiety, Depression Family Hx:: Cancer, Diabetes, Heart Attack, Hyperlipidemia, Hypertension Review of Systems - Review of Systems Review of systems:: pertinent systems reviewed and negative unless documented below - *Neurologic Reports abnormal walking, Reports dizziness Meds Home Medications Medication Instructions Recorded Confirmed Type aspirin 81 mg tablet,delayed 81 mg PO DAILY 04/15/20 04/26/21 History release clonazepam 0.5 mg tablet 0.5 mg PO DAILY tab 04/15/20 04/26/21 History propranolol 60 mg capsule,24 60 ea PO DAILY 04/15/20 04/26/21 History hr,extended release sertraline 50 mg tablet 50 mg PO DAILY tab 04/15/20 04/26/21 History atorvastatin 10 mg tablet 10 mg PO DAILY tab 05/20/20 04/26/21 History topiramate 25 mg tablet 25 mg PO DAILY 01/13/21 04/26/21 History Famotidine [Pepcid] 20 mg PO DAILY 02/15/21 04/26/21 History estradioL [Estradiol] 1 mg PO DAILY 04/26/21 04/26/21 History Allergies Allergy/AdvReac Type Severity Reaction Status Date / Time Sulfa (Sulfonamide Allergy Severe stopped Verified 02/24/21 14:36 Antibiotics) breathing, throat swells Exam Vital signs and Labs for Last 24 Hours: Temp Pulse Resp BP Pulse Ox 97.7 F 71 18 148/95 H 100 04/26/21 17:40 04/26/21 17:40 04/26/21 17:40 04/26/21 17:40 04/26/21 17:40 Laboratory Results - last 24 hr 04/26/21 12:57: WBC 10.5, RBC 4
[2021-04-26 20:33] LABS: Troponin I < 0.01 ng/ml (0.00-0.034)
[2021-04-27] VITALS: BP 123/70; PULSE 70; PULSE 72; RESP 17; TEMP 36.7; O2SAT 99
--- NOTE | 2021-04-27 | CA_ITS ---
APPROVED REPORT Exam: Pharmacologic Technologist: dada mann, Ht: 5 ft 6 in Wt: 196 lbs BSA: 1.98 m2 HR: 73 bpm BP: 121/82 mmHg Rhythm: NSR,NORMAL Indications: CP Medical History Medical History: HTN, Hyperlipidemia Medications: Asa,,,,, Zoloft,,,,, ClonAZEPAM,,,,, Lipitor,,,,, Estradiol,,,,, PropANOLOL,,,,, PEPcid,,,,, TopAMAX,,,,, Allergies: SULFA Cardiac Risk Factors: HTN, Hyperlipidemia, FHX of CAD Stress Test Details Test: LEXISCAN HR Resting HR: 87 bpm Max Heart Rate (APMHR): 169.075078 bpm Max HR Achieved: 130 bpm Target HR (85% APMHR): 143.147482 bpm % of APMHR: 76.92 Recovery HR: 118 bpm BP Resting BP: 121.0/82.0 mmHg Max BP: 140.0/86.0 mmHg Recovery BP: 137.0/86.0 mmHg ECG Resting ECG: NSR,NORMAL Medications Administered Hydralazine ( mg at ) Clinical Exercise duration: 04:02 min Highest Stage Achieved: Stress ECG Conclusion DURING INFUSION PATIENT HAD SOA,MALAISE,LIGHTHEADED AND BRIEF STOMACH DISCOMFORT. NO CP. NO ARRHYTHMIAS/ECTOPY. 1MM HORIZONTAL ST DEPRESSION INFERIORLY AND 0.5MM LATERALLY. EKG CHANGES SUGGESTIVE BUT NON-DIAGNOSTIC OF ISCHEMIA WITH LEXISCAN STRESS. MYOVIEW IMAGES REPORTED SEPARATELY. Electronically signed by : Stevo Valencia, 04/28/2021 09:24:31
--- NOTE | 2021-04-27 03:13 | PC.NURSE ---
Patient alert and oriented x4. Voiced no complaints of pain. VSS. Ambulated to bathroom independently. NPO at midnight. Voiced no further concerns to RN. rested well throughout shift and was cooperative.
[2021-04-27 04:00] VITALS: PULSE 70
[2021-04-27 04:08] VITALS: BP 120/70; PULSE 81; RESP 21; TEMP 36.8; O2SAT 98
[2021-04-27 05:03] VITALS: BMI 32.2
[2021-04-27 07:32] VITALS: BP 131/81; PULSE 74; RESP 18; TEMP 36.6; O2SAT 98
--- NOTE | 2021-04-27 07:34 | P.CONPHA_ITS ---
[facility] Pharmacy VTE Monitoring - Patient Demographics Admission date: 04/26/21 Report Date: 04/27/21 Time: 07:34 Allergies/Adverse Reactions: Patient Allergies Sulfa (Sulfonamide Antibiotics) Allergy (Severe, Verified 02/24/21 14:36) stopped breathing, throat swells Height: 1.68 m Weight: 90.945 kg Patient Problems: Current Active Problems Chest pain, precordial (Acute) Essential (primary) hypertension (Acute) Hyperlipidemia (Acute) Acid reflux (Acute) - VTE Risk Labs: VTE Related Lab Results Hgb 12.5 g/dL (12.2-16.2) 04/26/21 12:57 Hct 37.4 % (37.0-47.0) 04/26/21 12:57 Plt Count 245 K/mm3 (142-424) 04/26/21 12:57 BUN 13 mg/dl (7-17) 04/26/21 12:57 Creatinine 0.80 mg/dl (0.52-1.04) 04/26/21 12:57 Estimated Creat Clear 113 mL/min (50-200) 04/26/21 12:57 Was VTE Risk Assessment Performed: Yes VTE Risk Level: Low Risk - Prophylaxis VTE Prophylaxis Ordered?: Yes Types of VTE Prophylaxis: TEDS Knee High Location of Applied Device: Bilateral Lower Extremeties
--- NOTE | 2021-04-27 09:32 | PC.NURSE ---
Pt still currently off floor for stress test.
--- NOTE | 2021-04-27 10:06 | PC.NURSE ---
Pt still off floor
--- NOTE | 2021-04-27 10:07 | HMH.PNCARD ---
Subjective Date: 04/27/21 Time: 10:00 Principal diagnosis: chest pain Interval history: 50-year-old female presented to emergency department with midsternal chest pain yesterday. Patient states for the past 2 to 3 weeks she has been having midsternal chest pain with non radiation. Patient states the pain will come and go lasting for only a few seconds. Patient is undergoing Lexiscan Myoview stress test this a.m. to evaluate for ischemia. During this assessment patient denied chest pain, tightness or pressure. Patient states shortness of breath does accompanying the chest pain. Patient states she normally does not have shortness of breath with exertion. Patient states she is very active with daily activities. No exercise regimen noted. No swelling noted of the lower extremities. Patient does complain of dizziness especially with position change. Complains of nausea with no vomiting. Patient denies palpitations. EKG revealed normal sinus rhythm, prolonged QT, abnormal EKG with a heart rate of 58 bpm. Vital signs are stable. Pending on the results of the Lexiscan Myoview stress test and echocardiogram results, medication and treatment therapies may be recommended. Discussed plan of care with Dr. Valencia. Orders and recommendations were received from Dr. Valencia. Please notify cardiology of any changes in patient status. Thank you for allowing cardiology to participate in the care of this patient Exam Vital signs and Labs for Last 24 Hours: Temp Pulse Resp BP Pulse Ox 97.8 F 74 18 131/81 98 04/27/21 07:32 04/27/21 07:32 04/27/21 07:32 04/27/21 07:32 04/27/21 07:32 Laboratory Results - last 24 hr 04/26/21 12:57: WBC 10.5, RBC 4.28, Hgb 12.5, Hct 37.4, MCV 87.3, MCH 29.2, MCHC 33.5, RDW 13.6, Plt Count 245, MPV 8.8, Neut % (Auto) 56.3, Lymph % (Auto) 36.1, Coal % (Auto) 4.3, Eos % (Auto) 2.6, Baso % (Auto) 0.7, Neut # (Auto) 5.9, Lymph # (Auto) 3.8, Coal # (Auto) 0.5, Eos # (Auto) 0.3, Baso # (Auto) 0.1 04/26/21 12:57: Sodium 138, Potassium 3.9, Chloride 106, Carbon Dioxide 20 L, Anion Gap 15.9 H, BUN 13, Creatinine 0.80, Estimated Creat Clear 113, Estimated GFR 76, Est GFR ( Amer) 92, Glucose 108 H, Calcium 9.9, Troponin I < 0.01 04/26/21 15:00: SARS-CoV-2 (PCR) Not detected, Influenza A Untype (PCR) Not detected, Influenza Type B (PCR) Not detected 04/26/21 15:52: Troponin I < 0.01 04/26/21 19:27: Troponin I < 0.01 I & O for Last 24 hours: Intake & Output 04/24/21 04/25/21 04/26/21 04/27/21 23:59 23:59 23:59 23:59 Intake Total 360 / 360 120 / 120 Balance 360 / 360 120 / 120 Weight 199 lb 3 oz 200 lb 8 oz - Constitutional no acute distress, obese, cooperative - *Routine HEENT Exam Head: Present: normocephalic ENT: Present: mucous membranes moist - *Routine Neck Exam Present: supple, full ROM, normal carotid upstroke. Absent: JVD, carotid bruit, lymphadenopathy - *Routine Respiratory Exam Present: accessory muscle use, CTA bilaterally - *Routine Cardiovascular Exam Present: RRR, Normal S1, Normal S2, bradycardia - *Routine Abdominal Exam Present: soft, normoactive bowel sounds. Absent: distended, rebound - *Routine Extremities Exam Present: full ROM, pulses intact, normal capillary refill. Absent: edema - *Routine Skin Exam Present: intact, dry, warm. Absent: erythema - *Routine Neurological Exam Present: alert, oriented X3, moving all extremities, normal speech - Routine Psychiatric Exam Present: normal affect, cooperative Progress Note: A&P (1) Essential (primary) hypertension Status: Acute (2) Chest pain, precordial Status: Acute (3) Hyperlipidemia Status: Acute (4) Acid reflux Status: Acute Assessment and Plan for All Diagnoses:: Plan: 1. Patient presented to the ED with midsternal chest pain yesterday. Denies chest pain, tightness or pressure. Denies shortness of breath. Serial cardiac enzymes ordered. Troponin x1 n
--- NOTE | 2021-04-27 11:00 | PC.NURSE ---
Pts meds were late because she was having stress test.
[2021-04-27 11:04] VITALS: BP 125/81; PULSE 80; RESP 18; TEMP 36.5; O2SAT 99
--- NOTE | 2021-04-27 11:05 | HMH.PHAINT ---
MEDICATION RECONCILIATION COMPLETED USING EXTERNAL PHARMACY FILL HISTORY AND LIST FROM MD OFFICE.
--- NOTE | 2021-04-27 13:30 | HMH.DCSUM ---
General - General Admission date:: 04/26/21 Discharge date: 04/27/21 HPI HPI: 50-year-old female presented to emergency department with midsternal chest pain. Patient states for the past 2 to 3 weeks she has been having midsternal chest pain with non radiation. Patient states the pain will come and go lasting for only a few seconds. States this morning the pain was lasting longer than usual and was not relieved with rest. When patient arrived to the emergency room she was given a baby aspirin and states the pain in her chest eased and improved. During this assessment patient denied chest pain, tightness or pressure. Patient states shortness of breath does accompanying the chest pain. Patient states she normally does not have shortness of breath with exertion. Patient states she is very active with daily activities. No exercise regimen noted. No swelling noted of the lower extremities. Patient does complain of dizziness especially with position change. Complains of nausea with no vomiting. Patient denies palpitations. EKG revealed normal sinus rhythm, prolonged QT, abnormal EKG with a heart rate of 61 bpm. Vital signs are stable. Serial troponins have been drawn. Troponin x1 is negative. Patient does have history of hypertension in which she states normally controlled with propanolol. Patient does have history of hyperlipidemia. Patient is on statin therapy. Patient notes that previous episodes of chest pain over the past couple of weeks have been controlled with her anxiety medication and she thought it might have been stress. This episode lasted quite a bit longer than normal. Hospital Course Hospital Course: Patient was admitted, ruled out for myocardial infarction. Given her significant risk factors and clinical presentation she was subjected to imaging stress test this morning which was completely normal with preserved ejection fraction, normal wall motion and no evidence of stress/rest mismatch on nuclear imaging. She felt good after the test. She feels like this symptom may be from her anxiety, she has been taking extra Klonopin, usually takes it just at night. We discussed trying a low-dose SSRI and she is amenable to this. Plan will be to discharge her home with Lexapro. I have also asked her to start taking her omeprazole in the morning on an empty stomach to ameliorate any daily heartburn symptoms and I will follow her up for a post hospital check in my office in 2 weeks. Objective Vital signs: Temp Pulse Resp BP Pulse Ox 97.7 F 80 18 125/81 99 04/27/21 11:04 04/27/21 11:04 04/27/21 11:04 04/27/21 11:04 04/27/21 11:04 no acute distress - *Routine HEENT Exam Head: Present: normocephalic Eye: Present: EOMI, PERRL ENT: Present: mucous membranes moist - *Routine Neck Exam Present: supple - *Routine Respiratory Exam Present: CTA bilaterally - *Routine Cardiovascular Exam Present: RRR - *Routine Abdominal Exam Present: soft, normoactive bowel sounds. Absent: tenderness - *Routine Extremities Exam Absent: cyanosis, clubbing, edema - *Routine Skin Exam Present: warm. Absent: rash - Detailed Eye Exam Eyelids: Bilateral normal inspection Results Labs on day of discharge: Labs from last 24 hours 04/26/21 04/26/21 04/26/21 19:27 15:52 15:00 Troponin I < 0.01 < 0.01 SARS-CoV-2 (PCR) Not detected Influenza A Untype (PCR) Not detected Influenza Type B (PCR) Not detected 04/26/21 12:57 Troponin I < 0.01 SARS-CoV-2 (PCR) Influenza A Untype (PCR) Influenza Type B (PCR) DS: Diagnosis - Discharge Diagnosis (1) Essential (primary) hypertension Status: Acute (2) Chest pain, precordial Status: Resolved (3) Hyperlipidemia Status: Acute (4) Acid reflux Status: Acute Discharge Plan - Patient Discharge Instructions ACTIVITY: Continue current activity DIET: continue same diet Patient Instructions
--- NOTE | 2021-04-27 15:16 | NM_ITS ---
APPROVED REPORT Exam: Nuclear Stress Test Indication: HTN, HYPERLIPIDEMIA, TOB USE, FM HX, C.P., SOB Patient Location: Outpatient Stress Tech: Naila Salinas HI Tech:Azra LarryVINICIUS RT (R)(N)(M) Ht: 5 ft 6 in Wt: 199 lbs Bra Size: 40DD HR: 73 bpm BP: 121/82 mmHg BSA: 2.00 m2 BMI: 32.1 History: HTN, HYPERLIPIDEMIA, TOB USE, FM HX, C.P., SOB Procedure: Patient received a 0.4 mg of intravenous Lexiscan, resting heart rate 73 bpm, resting blood pressure 121/82 mmHg, with Lexiscan maximum heart rate achived was 130 bpm which is % of the maximum predicted heart rate and blood pressure was 140/86 mmHg. With Lexiscan, patient denied any complaint of chest pain. SOA, DIZZINESS Cardiac Stress and Resting SPECT Images: Cardiac Stress and Resting SPECT images were obtained using technetium 99m Myoview 31.2 mCi stress and 10.13 mCi at rest. Normal EF of 72 % with no wall motion abnormalities No fixed or reversible defects Conclusion: Normal EF with no ischemic changes Electronically signed by : Aki Parish MD 04/27/2021 11:42:27
== END 2021-04-27 14:20 | disposition home or self-care (01) ==
LOC: ER 15:50 → 2ND 20:39
PROVIDERS: Admitting Provider Internal Medicine Adolescent Medicine; Emergency Provider Emergency Medicine; PCP Physician Assistant; Visit Provider Internal Medicine Adolescent Medicine
DX: R07.9 Chest pain, unspecified (principal); R07.2 Precordial pain; I10 Essential (primary) hypertension; E78.5 Hyperlipidemia, unspecified; K21.9 Gastro-esophageal reflux disease without esophagitis; F17.200 Nicotine dependence, unspecified, uncomplicated; Z88.2 Allergy status to sulfonamides; F41.9 Anxiety disorder, unspecified; F32.9 Major depressive disorder, single episode, unspecified
CPT/HCPCS: 36415; 71045; 78452; 80048; 84484; 85025; 93005; 93017; 93306; 99284; 99291; A9502; G0378; J0280; J2785; U0003

== ENCOUNTER → 2021-07-19 18:08 | Outpatient (CLI) | payer BC, SELFPAY ==
[2021-07-19 18:33] LABS: Basophils # 0.1 K/mm3 (0-0.2); Basophils % 0.8 % (0.1-2.0); Eosinophils # 0.2 K/mm3 (0.0-0.4); Eosinophils % 2.3 % (0.1-12.0); Hematocrit 38.3 % (37.0-47.0); Hemoglobin 12.4 g/dL (12.2-16.2); Lymphocytes # 4.3 K/mm3 (0.7-4.5); Lymphocytes % 42.2 % (10-50); Mean Corpuscular HGB Conc 32.5 g/dL (31.8-35.4); Mean Corpuscular Hemoglobin 29.9 pg (27.0-31.2); Mean Platelet Volume 9.6 fl (7.4-10.4); Monocytes # 0.5 K/mm3 (0.1-1.0); Neutrophils # 5.1 K/mm3 (1.8-7.8); Neutrophils % 49.6 % (37.0-80.0); Platelet Count 328 K/mm3 (142-424); Red Blood Count 4.16 M/mm3 (4.20-5.40); Red Cell Distribution Width 13.5 % (11.5-17.5); White Blood Count 10.2 K/mm3 (4.8-10.8)
[2021-07-19 18:38] LABS: Alanine Aminotransferase 30 U/L (12-78); Albumin/Globulin Ratio 1.3 (1.1-1.8); Alkaline Phosphatase 44 U/L (38-126); Anion Gap 13.3 mEq/L (5-15); Aspartate Amino Transferase 39 U/L (14-36); Bilirubin,Total 0.2 mg/dl (0.2-1.3); Blood Urea Nitrogen 9 mg/dl (7-17); Calcium 9.4 mg/dl (8.4-10.2); Carbon Dioxide 20 mmol/L (22.0-30.0); Chloride 109 mmol/L (98-107); Chol/HDL Ratio 3.4 (1-3.5); Cholesterol 189 mg/dl (140-200); Estimated Glomerular Filt Rate 88 ml/min (>60); GFR (African American) 106 ML/MIN (>60); Glucose 110 mg/dl (74-100); HDL Cholesterol 55 mg/dl (40-60); Potassium 4.3 mmoL/L (3.5-5.1); Sodium 138 mmol/L (136-145)
[2021-07-19 18:43] LABS: Triglycerides 418 mg/dl (30-150)
[2021-07-19 18:49] LABS: Direct LDL Cholesterol 63.05 mg/dL (100-129)
[2021-07-19 18:53] LABS: Free T4 (Free Thyroxine) 0.76 ng/dl (0.78-2.19)
[2021-07-19 19:09] LABS: Thyroid Stimulating Hormone 1.53 uIU/mL (0.465-4.68)
[2021-07-19 19:10] LABS: Erythrocyte Sedimentation Rate 27 mm/hr (0-30)
[2021-07-19 19:28] LABS: Vitamin B12 320 pg/mL (239-931)
== END ==
PROVIDERS: Visit Provider Emergency Medicine
DX: R10.9 Unspecified abdominal pain (principal); E78.5 Hyperlipidemia, unspecified; E55.9 Vitamin D deficiency, unspecified
CPT/HCPCS: 80053; 80061; 82306; 82607; 84439; 84443; 85025; 85651

== ENCOUNTER 2021-10-30 09:57 | Emergency (ER) | payer BC, SELFPAY ==
[2021-10-30 10:10] VITALS: BP 113/73; PULSE 70; RESP 16; TEMP 37; O2SAT 98; BMI 31.4
--- NOTE | 2021-10-30 10:45 | HMH.EDUTC ---
[facility] [place] Clinical Impression: Bronchitis Disposition: Home, Self-Care Condition on Discharge: Good Instructions: DI for Acute Bronchitis Additional Instructions: covid swab was sent to lab, we will call if covid is positive for results. self isolate until test results are known to be negative No sign of a bacterial infection. Likely viral. Viruses can take 7-14 days to run their course. Nasal saline and bulb syringe or nose Thea to remove nasal drainage to help with nasal congestion. Hard to eat, drink, sleep with nasal congestion so important to keep this cleaned out. Monitor temp. Tylenol or Motrin as needed for pain or fever Encourage fluids, water, Gatorade, Powerade, Pedialyte if infant/toddler/child Warm salt water gargles Warm fluids Sore throat lozenges Sleep elevated Humidifier/vaporizer Follow-up immediately for new or worsening symptoms or no noticeable improvement over the next 48-72 hours. Prescriptions: predniSONE [Prednisone 20mg Tab] 20 mg PO BID #10 tab Transmission Status: Pending to [facility] #[id number] Azithromycin [Zithromax 250mg tab] 250 mg PO DIRECTED #6 tab Transmission Status: Pending to [facility] #[id number] Referrals: Jose Luis Wong MD [Primary Care Provider] - Time of Disposition: 10:56 Medical Decision Making - [facility] Inquiry Pt receiving controlled substance: No Vital Signs: 10/30/21 10:10 Temperature 98.6 F Temperature Source Oral Pulse Rate [Right Brachial] 70 Respiratory Rate 16 Blood Pressure [Right Arm] 113/73 Blood Pressure Mean [Right Arm] 86 Blood Pressure Source [Right Arm] Automatic Cuff Blood Pressure Position [Right Arm] Sitting 02 Sat by Pulse Oximetry 98 Oxygen Delivery Method Room Air Orders (Tests/Meds): ORDERS Category Date Time Status Covid-19 Nasal PCR ([facility]) Routine Lab 10/30/21 10:20 Ordered [facility] [place]PI - General Chief complaint: Urgent [facility] Stated complaint: covid symptoms Time Seen by Provider: 10/30/21 10:46 Mode of Arrival: Ambulatory Source of Information: Patient Limitations: No Limitations Description of Symptoms (Recalled from Triage Doc. by RN): PATIENT C/O COUGH, CONGESTION, AND BODY ACHES X 1 WEEK. REQUESTING COVID TEST HEENT Symptoms (Recalled from RN notes): No Resp Symptoms (Recalled from RN notes): Yes Skin Symptoms (Recalled from RN notes): No MS Symptoms (Recalled from RN notes): Yes Functional Status (Recalled from RN notes): WNL - History of Present Illness Provider Complaint: 51 yr old female presents for body aches,chills,diarreha,coughing up thick green sputum, congestion and sore throat. - Related Data Previous Rx's Medication Instructions Recorded dicyclomine 10 mg capsule 10 mg PO BID #60 cap 07/28/21 aspirin 81 mg tablet,delayed 81 mg PO DAILY #90 tab 09/30/21 release atorvastatin 10 mg tablet 10 mg PO DAILY #90 tab 09/30/21 clonazepam 0.5 mg tablet 0.5 mg PO DAILY #30 tab 09/30/21 diclofenac sodium 1 % topical gel 2 g TOPICAL QID #100 g 09/30/21 escitalopram oxalate 10 mg tablet 10 mg PO DAILY #30 tab 09/30/21 estradiol 1 mg tablet 1 mg PO DAILY #90 tab 09/30/21 famotidine 20 mg tablet 20 mg PO DAILY #90 tab 09/30/21 lidocaine 5 % topical patch 1 patch TOPICAL DAILY #30 each 09/30/21 propranolol 60 mg capsule,24 60 mg PO DAILY #90 cap 09/30/21 hr,extended release sertraline 50 mg tablet 50 mg PO DAILY #90 tab 09/30/21 topiramate 50 mg tablet 50 mg PO DAILY #90 tab 09/30/21 tramadol 50 mg tablet 50 mg PO BID #60 tab 09/30/21 ondansetron 8 mg disintegrating 8 mg PO Q12H PRN #10 tab 10/03/21 tablet Azithromycin [Zithromax 250mg 250 mg PO DIRECTED #6 tab 10/30/21 tab] predniSONE [Prednisone 20mg 20 mg PO BID #10 tab 10/30/21 Tab] Allergies Allergy/AdvReac Type Severity Reaction Status Date / Time Sulfa (Sulfonamide Allergy Severe stopped Verified 09/30/21 13:26 Antibiotics) breathing, throat swells - Work
[2021-10-30 10:57] VITALS: BP 113/73; PULSE 70; RESP 16; TEMP 37; O2SAT 98
== END 2021-10-30 11:03 | disposition home or self-care (01) ==
PROVIDERS: Emergency Provider Nurse Practitioner Family; PCP Emergency Medicine
DX: J20.9 Acute bronchitis, unspecified (principal); Z20.822 Contact with and (suspected) exposure to COVID-19; K21.9 Gastro-esophageal reflux disease without esophagitis; I10 Essential (primary) hypertension
CPT/HCPCS: 99202; C9803; G0463; U0003; U0005

== ENCOUNTER → 2022-02-21 22:12 | Outpatient (CLI) | payer BC, SELFPAY ==
[2022-02-21 14:04] LABS: Basophils # 0.2 K/mm3 (0-0.2); Basophils % 2.2 % (0.1-2.0); Eosinophils # 0.2 K/mm3 (0.0-0.4); Eosinophils % 2.4 % (0.1-12.0); Hematocrit 38.4 % (37.0-47.0); Hemoglobin 12.7 g/dL (12.2-16.2); Lymphocytes # 2.3 K/mm3 (0.7-4.5); Lymphocytes % 27.1 % (10-50); Mean Corpuscular Hemoglobin 29.5 pg (27.0-31.2); Mean Corpuscular Volume 89.4 fl (81-99); Mean Platelet Volume 8.9 fl (7.4-10.4); Monocytes # 0.4 K/mm3 (0.1-1.0); Monocytes % 5.2 % (1.7-9.3); Neutrophils # 5.3 K/mm3 (1.8-7.8); Neutrophils % 63.1 % (37.0-80.0); Platelet Count 276 K/mm3 (142-424); Red Blood Count 4.29 M/mm3 (4.20-5.40); Red Cell Distribution Width 13.4 % (11.5-17.5); White Blood Count 8.4 K/mm3 (4.8-10.8)
[2022-02-21 14:10] LABS: Alanine Aminotransferase 28 U/L (12-78); Albumin Level 3.9 g/dl (3.5-5.0); Albumin/Globulin Ratio 1.4 (1.1-1.8); Alkaline Phosphatase 37 U/L (38-126); Anion Gap 12.9 mEq/L (5-15); Aspartate Amino Transferase 42 U/L (14-36); Bilirubin,Total 0.6 mg/dl (0.2-1.3); Blood Urea Nitrogen 6 mg/dl (7-17); Calcium 9.1 mg/dl (8.4-10.2); Carbon Dioxide 26 mmol/L (22.0-30.0); Chloride 101 mmol/L (98-107); Estimated Glomerular Filt Rate 88 ml/min (>60); GFR (African American) 106 ML/MIN (>60); Globulin 2.8 g/dL (1.3-3.2); Glucose 110 mg/dl (74-100); Lipase 97 U/L (23-300); Potassium 3.9 mmoL/L (3.5-5.1); Sodium 136 mmol/L (136-145); Total Protein,Serum 6.7 g/dl (6.3-8.2)
[2022-02-21 15:07] LABS: Erythrocyte Sedimentation Rate 43 mm/hr (0-30)
== END ==
PROVIDERS: Visit Provider Emergency Medicine
DX: G43.909 Migraine, unspecified, not intractable, without status migrainosus (principal); R19.7 Diarrhea, unspecified
CPT/HCPCS: 80053; 83690; 85025; 85651

== ENCOUNTER → 2022-03-11 07:34 | Outpatient (CLI) | payer BC, SELFPAY ==
--- NOTE | 2022-03-11 07:35 | MR_ITS ---
PROCEDURE INFORMATION: Exam: MR Head Without and With Contrast Exam date and time: 03/11/2022 7:49 AM Age: 51 years old Clinical indication: Patient HX: Worsening headaches, eval for mass, lesion TECHNIQUE: Imaging protocol: MR of the head without and with intravenous contrast. Contrast material: PROHANCE; Contrast volume: 18 ml; Contrast route: IV; COMPARISON: No relevant prior studies available. FINDINGS: Brain: There are few scattered regions of increased T2/FLAIR in the subcortical white matter most consistent with the sequela prior small vessel ischemia. The diffusion sequence demonstrates no acute change. There is no evidence of acute subarachnoid hemorrhage. There is no abnormal enhancement. Cerebral ventricles: The ventricles and CSF spaces are normal in size for age. Bones/joints: Unremarkable. Paranasal sinuses: There is a 7 mm retention cyst/polyp in the right maxillary sinus. Mastoid air cells: Normal as visualized. No mastoid effusion. Orbital cavities: Unremarkable. Soft tissues: Unremarkable. IMPRESSION: 1. No mass or abnormal enhancement. 2. No acute intracranial abnormality.
--- NOTE | 2022-03-11 07:35 | MR_ITS ---
PROCEDURE INFORMATION: Exam: MRA Head Without Contrast; Arteriography Exam date and time: 03/11/2022 7:49 AM Age: 51 years old Clinical indication: Patient HX: Worsening headaches, eval for cvt TECHNIQUE: Imaging protocol: Magnetic resonance angiography head without contrast. Wvmm-wh-opabuz (TOF) technique was utilized for this exam. Exam focused on the arteries. COMPARISON: No relevant prior studies available. FINDINGS: ANTERIOR CIRCULATION: Right internal carotid artery: There is a 2.3 mm aneurysm of the anteromedial right cavernous carotid (series 3, image 90). Right middle cerebral artery: No occlusion or significant stenosis. No aneurysm. Right anterior cerebral artery: No occlusion or significant stenosis. No aneurysm. Left internal carotid artery: Intracranial segment is patent with no significant stenosis. No aneurysm. Left middle cerebral artery: No occlusion or significant stenosis. No aneurysm. Left anterior cerebral artery: No occlusion or significant stenosis. No aneurysm. POSTERIOR CIRCULATION: Right vertebral artery: The intradural segment of the right vertebral artery is a diminutive. Left vertebral artery: No occlusion or significant stenosis. No aneurysm. Basilar artery: No occlusion or significant stenosis. No aneurysm. Right posterior cerebral artery: No occlusion or significant stenosis. No aneurysm. Left posterior cerebral artery: There is a origin of the left INSURANCE ANALYST. There is an infundibulum at the origin of the left posterior communicating artery. IMPRESSION: 1. 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 A follow-up neurovascular consultation is recommended. 2. There is no acute intracranial arterial stenosis or occlusion.
--- NOTE | 2022-03-11 10:01 | PC.NURSE ---
Spoke with SULTANA about critical results, Dr Romo is not nurse practitioner adult so I spoke with PCP Dr Wong and Dr Dawson about results. Dr Dawson is nurse practitioner adult so he will notify pt of results. After speaking with Dr Dawson and Dr Wong, A Stroub, CLARKE called me to let me know she was aware of critical results and had called pt already.
== END ==
PROVIDERS: PCP Emergency Medicine; Visit Provider Nurse Practitioner Family
DX: G43.019 Migraine without aura, intractable, without status migrainosus (principal); I10 Essential (primary) hypertension; R40.0 Somnolence; Z86.69 Personal history of other diseases of the nervous system and sense organs
CPT/HCPCS: 70544; 70553; A9576

== ENCOUNTER → 2022-03-29 14:16 | Outpatient (CLI) | payer BC, SELFPAY | PROVIDERS: PCP Emergency Medicine; Visit Provider Emergency Medicine | DX: R82.90 Unspecified abnormal findings in urine (principal) | CPT/HCPCS: 87086 ==

== ENCOUNTER → 2022-04-05 07:06 | Outpatient (CLI) | payer BC, SELFPAY | PROVIDERS: PCP Emergency Medicine; Visit Provider Emergency Medicine | DX: R82.90 Unspecified abnormal findings in urine (principal) | CPT/HCPCS: 87086 ==

== ENCOUNTER → 2022-05-05 14:18 | Outpatient (CLI) | payer BC, SELFPAY ==
[2022-05-05 13:18] LABS: Influenza A, PCR Not Detected (NotDetected); Influenza B, PCR Not Detected (NotDetected)
[2022-05-05 16:00] LABS: Coronavirus 19, PCR Detected (NotDetected)
== END ==
PROVIDERS: PCP Emergency Medicine; Visit Provider Emergency Medicine
DX: U07.1 COVID-19 (principal); R05.9 Cough, unspecified
CPT/HCPCS: C9803; U0003; U0005

== ENCOUNTER → 2022-06-22 17:23 | Outpatient (CLI) | payer BC, SELFPAY | PROVIDERS: PCP Emergency Medicine; Visit Provider Emergency Medicine | DX: R82.90 Unspecified abnormal findings in urine (principal) | CPT/HCPCS: 87086 ==

== ENCOUNTER → 2023-04-09 13:49 | Outpatient (CLI) | payer BC, SELFPAY ==
[2023-04-09 13:41] LABS: Basophils % 0.4 % (0.1-2.0); Eosinophils # 0.3 K/mm3 (0.0-0.4); Eosinophils % 2.3 % (0.1-12.0); Hematocrit 37.1 % (37.0-47.0); Hemoglobin 12.4 g/dL (12.2-16.2); Lymphocytes # 3.7 K/mm3 (0.7-4.5); Lymphocytes % 33.4 % (10-50); Mean Corpuscular HGB Conc 33.4 g/dL (31.8-35.4); Mean Corpuscular Hemoglobin 29.3 pg (27.0-31.2); Mean Corpuscular Volume 87.7 fl (81-99); Mean Platelet Volume 10.1 fl (7.4-10.4); Monocytes # 0.5 K/mm3 (0.1-1.0); Monocytes % 4.4 % (1.7-9.3); Neutrophils # 6.6 K/mm3 (1.8-7.8); Neutrophils % 59.6 % (37.0-80.0); Platelet Count 247 K/mm3 (142-424); Red Blood Count 4.23 M/mm3 (4.20-5.40); Red Cell Distribution Width 13.5 % (11.5-17.5)
[2023-04-09 14:05] LABS: Alanine Aminotransferase 25 U/L (12-78); Albumin Level 3.9 g/dl (3.5-5.0); Albumin/Globulin Ratio 1.3 (1.1-1.8); Alkaline Phosphatase 36 U/L (38-126); Anion Gap 14.8 mEq/L (5-15); Aspartate Amino Transferase 33 U/L (14-36); Bilirubin,Total 0.3 mg/dl (0.2-1.3); Blood Urea Nitrogen 9 mg/dl (7-17); Calcium 8.7 mg/dl (8.4-10.2); Carbon Dioxide 21 mmol/L (22.0-30.0); Chloride 107 mmol/L (98-107); Cholesterol 246 mg/dl (140-200); Estimated Glomerular Filt Rate 88 ml/min (>60); GFR (African American) 106 ML/MIN (>60); Globulin 3.1 g/dL (1.3-3.2); Glucose 159 mg/dl (74-100); HDL Cholesterol 61 mg/dl (40-60); Potassium 3.8 mmoL/L (3.5-5.1); Sodium 139 mmol/L (136-145)
[2023-04-09 14:15] LABS: Triglycerides 1026 mg/dl (30-150)
[2023-04-09 14:16] LABS: Direct LDL Cholesterol 32.51 mg/dL (100-129)
[2023-04-09 14:37] LABS: Thyroid Stimulating Hormone 0.97 uIU/mL (0.465-4.68)
== END ==
PROVIDERS: PCP Emergency Medicine; Visit Provider Emergency Medicine
DX: R73.09 Other abnormal glucose (principal); E55.9 Vitamin D deficiency, unspecified; E66.9 Obesity, unspecified; Z68.31 Body mass index [BMI] 31.0-31.9, adult
CPT/HCPCS: 80053; 80061; 82306; 83036; 84439; 84443; 85025

== ENCOUNTER 2023-05-15 15:00 | Outpatient (RCR) | payer BC, SELFPAY ==
--- NOTE | 2023-04-25 15:05 | HMH.PTOPEV ---
PT Outpatient Evaluation Rehab PT Outpatient Evaluation Start: 04/25/23 14:00 Freq: Status: Active Protocol: Document 04/25/23 14:00 PDESERHEATHERX (Rec: 04/25/23 15:05 PDESEROUX [id number]) E-signed By Yuniel Roth, PT Outpatient Therapy Subjective History Subjective History Pt. is a 52 year old female who presents to [facility] in [place] for the initial evaluation this date(04/25/23) w/ c/o acute on chronic and constant B/L cervical P! and stiffness w/ intermittent BUE hand tingling of insidious onset that became constant 1 month ago. Pt. reports having a chronic history of cervical P! for years, however, symptoms were intermittent until 1 month ago[address] Pt. reports Dr. Wong has ordered an MRI of the cervical spine and that she is waiting to hear back to [facility]. Pt. denies having injections for current complaint. Pt. reports having some symptom relief w/ prescribed cream and medications. Pt. reports symptoms worsen w/ prolonged sitting/standing and having to use my arms. Pt. reports working for the [employer] which includes prolonged sitting in front of her laptop . Current medication list include Diclofenac, Hydrocodone, Propranolol, Famotidine, Atorvastatin, Tizanidine, Topiramate, Venlafaxine, and Ondansetron. PMH includes R-sided ophthalmic artery aneurysm, Hypertension, Hyperlipidemia, B/L Oophorectomy, hx. of fall off of a horse, S/P R-sided RC repair, S/P RLE meniscal repair, and osteoarthritis. Chief Complaint Pain,Stiff,Swelling, Paresthesia,Weakness Symptom Type Ache,Sharp,Sta
== END 2023-05-15 15:05 | disposition home or self-care (01) ==
LOC: PT 15:00
PROVIDERS: PCP Emergency Medicine; Visit Provider Emergency Medicine
DX: M54.2 Cervicalgia (principal)
CPT/HCPCS: 20560; 97010; 97110; 97140; 97163

== ENCOUNTER → 2023-05-21 13:20 | Outpatient (CLI) | payer BC, SELFPAY ==
[2023-05-21 15:10] LABS: Benzodiazepines Screen,Urine Negative ng/ml (<200); Cannabinoid Screen,Urine Negative ng/ml (<50)
[2023-05-21 15:11] LABS: Cocaine Screen,Urine Negative ng/ml (<300)
[2023-05-21 15:13] LABS: Methadone Screen,Urine Negative ng/ml (<300)
[2023-05-21 15:14] LABS: Opiate Screen,Urine Negative ng/ml (<300); Phencyclidine Screen,Urine Negative ng/ml (<25)
[2023-05-21 16:45] LABS: Amphetamine/Metha Screen,Urine Negative ng/ml (<1000); Barbiturates Screen,Urine Negative ng/ml (<200)
== END ==
PROVIDERS: PCP Emergency Medicine; Visit Provider Emergency Medicine
DX: Z79.899 Other long term (current) drug therapy (principal)
CPT/HCPCS: 80305

== ENCOUNTER → 2023-07-09 15:30 | Outpatient (CLI) | payer BC, SELFPAY ==
[2023-07-09 19:18] LABS: Amphetamine/Metha Screen,Urine Negative ng/ml (<1000)
[2023-07-09 19:20] LABS: Cannabinoid Screen,Urine Negative ng/ml (<50)
[2023-07-09 19:21] LABS: Barbiturates Screen,Urine Negative ng/ml (<200)
[2023-07-09 19:22] LABS: Benzodiazepines Screen,Urine Negative ng/ml (<200); Opiate Screen,Urine Positive ng/ml (<300)
[2023-07-09 19:23] LABS: Cocaine Screen,Urine Negative ng/ml (<300)
[2023-07-09 19:24] LABS: Methadone Screen,Urine Negative ng/ml (<300); Phencyclidine Screen,Urine Negative ng/ml (<25)
== END ==
PROVIDERS: PCP Emergency Medicine; Visit Provider Emergency Medicine
DX: M54.12 Radiculopathy, cervical region (principal)
CPT/HCPCS: 80305

== ENCOUNTER → 2023-09-03 10:44 | Outpatient (CLI) | payer BC, SELFPAY ==
[2023-09-03 19:40] LABS: Amphetamine/Metha Screen,Urine Negative ng/ml (<1000)
[2023-09-03 19:41] LABS: Barbiturates Screen,Urine Negative ng/ml (<200)
[2023-09-03 19:42] LABS: Benzodiazepines Screen,Urine Negative ng/ml (<200); Cannabinoid Screen,Urine Negative ng/ml (<50)
[2023-09-03 19:43] LABS: Cocaine Screen,Urine Negative ng/ml (<300); Methadone Screen,Urine Negative ng/ml (<300)
[2023-09-03 19:44] LABS: Opiate Screen,Urine Positive ng/ml (<300)
[2023-09-03 19:45] LABS: Phencyclidine Screen,Urine Negative ng/ml (<25)
== END ==
PROVIDERS: PCP Emergency Medicine; Visit Provider Emergency Medicine
DX: Z79.899 Other long term (current) drug therapy (principal)
CPT/HCPCS: 80305

== ENCOUNTER 2023-10-26 09:58 | Outpatient (CLI) | payer BC, SELFPAY ==
[2023-10-25 17:15] LABS: Amphetamine/Metha Screen,Urine Negative ng/ml (<1000); Barbiturates Screen,Urine Negative ng/ml (<200); Benzodiazepines Screen,Urine Negative ng/ml (<200); Cannabinoid Screen,Urine Negative ng/ml (<50); Cocaine Screen,Urine Negative ng/ml (<300); Methadone Screen,Urine Negative ng/ml (<300); Phencyclidine Screen,Urine Negative ng/ml (<25)
[2023-10-25 17:18] LABS: Opiate Screen,Urine Negative ng/ml (<300)
[2023-11-01 13:21] LABS: Alprazolam Negative (Cutoff=100); Benzodiazepines Positive ng/mL (Cutoff=100); Clonazepam Positive (.); Clonazepam Confirm 351 ng/mL (Cutoff=100); Flurazepam Negative (Cutoff=100); Lorazepam Negative (Cutoff=100); Midazolam Negative (Cutoff=100); Opiates Negative ng/mL (Cutoff=100); Temazepam Negative (Cutoff=100); Triazolam Negative (Cutoff=100)
== END 2023-10-26 23:59 ==
PROVIDERS: PCP Family Medicine; Visit Provider Family Medicine
DX: F32.A Depression, unspecified (principal); F41.9 Anxiety disorder, unspecified; R52 Pain, unspecified
CPT/HCPCS: 80307; 80346; 80361; G0480

== ENCOUNTER 2023-11-26 09:25 | Outpatient (CLI) | payer BC, SELFPAY ==
--- NOTE | 2023-11-26 09:26 | MM_ITS ---
PROCEDURE INFORMATION: Exam: MG Bilateral Screening 3D Mammography Exam date and time: 11/26/2023 9:53 AM Age: 53 years old Clinical indication: Screening. No family history of breast cancer. TECHNIQUE: Imaging protocol: Bilateral Screening tomosynthesis and 2D mammography including computer-aided detection (CAD) when performed. COMPARISON: No relevant prior studies available.If prior mammograms are provided, I am happy to add an addendum. FINDINGS: MAMMOGRAPHY: Breast composition: The breasts are heterogeneously dense, which may obscure small masses. Mass: No suspicious mass. Architectural distortion: None. Calcifications: No suspicious calcifications. Asymmetric density: None. Skin thickening: None. Axillary adenopathy: None. IMPRESSION: No mammographic evidence of malignancy. Annual screening is recommended unless otherwise clinically indicated. ASSESSMENT: BI-RADS Category 1: Negative
== END 2023-11-26 23:59 ==
LOC: RAD 09:26
PROVIDERS: PCP Family Medicine; Visit Provider Family Medicine
DX: Z12.31 Encounter for screening mammogram for malignant neoplasm of breast (principal)
CPT/HCPCS: 77063; 77067

== ENCOUNTER 2023-12-11 10:17 | Emergency (ER) | payer BC, SELFPAY ==
[2023-12-11] VITALS (7 sets, daily range): BP systolic 127–146; BP diastolic 87–97; PULSE 64–76; RESP 18; TEMP 36.6–36.7; O2SAT 95–98; BMI 28.7
--- NOTE | 2023-12-11 10:25 | PC.NURSE ---
DR ALEXANDRE AT BEDSIDE
[2023-12-11 10:35] LABS: Microscopic, Urine URINE MICROSCOPIC (MICROSCOPIC)
--- NOTE | 2023-12-11 10:37 | ED_ITS ---
Discharge Plan Disposition Patient Disposition: Home, Self-Care Prescriptions Prescriptions: New ondansetron 4 mg tablet,disintegrating 4 mg PO Q6H PRN (Reason: nausea and vomiting) Qty: 10 2RF No Action aspirin [Adult Low Dose Aspirin] 81 mg tablet,delayed release (DR/EC) 81 mg PO DAILY Qty: 90 0RF estradiol valerate 20 mg/mL oil 30 mg IM Q4W hydrocodone-acetaminophen 7.5-325 mg tablet 1 tab PO BID Qty: 60 0RF clonazepam [Klonopin] 0.5 mg tablet 0.5 mg PO HS Qty: 30 1RF (DME) pen needle, diabetic [BD Ultra-Fine Mini Pen Needle] 31 gauge x 3/16 needle See Rx Instructions .ROUTE .MEDSUPPLY Qty: 1200 Rx Instructions: As directed pseudoephedrine HCl [Sudafed 12 Hour] 120 mg tablet extended release 120 mg PO Q12H PRN (Reason: nasal congestion) Qty: 10 0RF ondansetron 4 mg tablet,disintegrating 4 mg PO Q8H PRN (Reason: nausea and vomiting) Qty: 30 3RF propranolol 60 mg capsule,extended release 24 hr See Rx Instructions .ROUTE .COMPLEX Qty: 90 3RF Dose Instruction: TAKE 1 CAPSULE BY MOUTH DAILY FOR HIGH BLOOD PRESSURE Rx Instructions: TAKE 1 CAPSULE BY MOUTH DAILY FOR HIGH BLOOD PRESSURE Saxenda 3 mg/0.5 mL (18 mg/3 mL) pen injector See Rx Instructions SQ .COMPLEX Rx Instructions: inject subcutaneously once daily: week 1 = 0.6 mg; week 2 = 1.2 mg; week 3 = 1.8 mg; week 4 = 2.4 mg; then 3 mg daily SQ topiramate 100 mg tablet 100 mg PO HS Qty: 90 2RF omeprazole 40 mg capsule,delayed release(DR/EC) 40 mg PO BID Qty: 60 1RF atorvastatin 10 mg tablet See Rx Instructions .ROUTE .COMPLEX Qty: 90 2RF Dose Instruction: TAKE 1 TABLET BY MOUTH DAILY FOR CHOLESTEROL Rx Instructions: TAKE 1 TABLET BY MOUTH DAILY FOR CHOLESTEROL pen needle, diabetic [BD Ultra-Fine Short Pen Needle] 31 gauge x 5/16 needle 1 ea miscellaneous WEEKLY 30 Days Qty: 20 2RF venlafaxine 37.5 mg capsule,extended release 24hr 37.5 mg PO DAILY Qty: 90 0RF tizanidine 4 mg tablet 4 mg PO BID PRN (Reason: muscle spasticity) Qty: 180 2RF Referrals Follow up/Referrals: Anastacio Piña MD [Primary Care Provider] - See instructions Activity Restrictions/Add. Instructions Additional Instructions/Restrictions: Call your family doctor to establish care for this visit to the emergency department and schedule follow-up within 48 hours to ensure improvement. If you have any worsening of your condition or any other concerning signs or symptoms, return to the emergency department or your primary care doctor for further evaluation. Maintain follow-up with GI. MiraLAX once daily and Maalox twice daily will likely help significantly with her symptoms. Clinical Impressions Clinical Impression: Abdominal pain Qualifiers: Abdominal location: epigastric Qualified Code(s): R10.13 - Epigastric pain Instructions Patient Instructions: DI for Acute Abdominal Pain Discharge ED Provider: Shakeel Ramires General Adult HPI General Chief complaint: Abdominal Pain Stated complaint: adb pain Time Seen by Provider: 12/11/23 10:18 Mode of Arrival: Ambulatory Source of Information: Patient Limitations: No Limitations Description of Symptoms (Recalled from ER Triage Doc. by RN): stomach pain and diarrhea. History of Present Illness HPI narrative: 53-year-old female history of hypertension, hyperlipidemia, chronic abdominal pain, IBS, gastric ulcers currently on PPI, hysterectomy presenting with abdominal pain. She states that she has been having abdominal pain for a while, but does not follow-up until December with her GI doctor. Patient states abdominal pain is epigastric, sharp, intermittent, brought on by eating, not positional. She has been having nausea without vomiting. No fevers or chills, hematemesis, hematochezia or melena, or any other concerns. Related Data Home Medications Medication Instructions Recorded Confirmed liraglutide (weight loss) 3 mg/0.5 See Rx Instructions SQ .COMPLEX 08/22/23 12/06/23 mL (18 mg/3 mL) subcut pen injector (Saxenda) estradiol valerate 20 mg/mL 30 mg IM Q4W 09/03/23 12/06/23 intramuscular oil pen needle, diabetic 31 gauge x #1,200 ea 12/06/23 12/06/23/16 (BD Ultra-Fine Mini Pen Needle) Previous Rx's Medication Instructions Recorded aspirin 81 mg tablet,delayed 81 mg PO DAILY curated.by #90 09/30/21 release (Adult Low Dose Aspirin) tabs ondansetron 4 mg disintegrating 4 mg PO Q8H PRN nausea and 02/19/23 tablet vomiting #30 tabs propranolol 60 mg capsule,24 See Rx Instructions .Route 03/28/23 hr,extended release .COMPLEX #90 caps topiramate 100 mg tablet 100 mg PO HS migraines #90 tabs 08/30/23 clonazepam 0.5 mg tablet (Klonopin) 0.5 mg PO HS #30 tabs 10/25/23 hydrocodone 7.5 mg-acetaminophen 1 tab PO BID #60 tabs 10/25/23 325 mg tablet atorvastatin 10 mg tablet See Rx Instructions .Route 11/12/23 .COMPLEX #90 tabs omeprazole 40 mg capsule,delayed 40 mg PO BID #60 caps 11/12/23 release pen needle, diabetic 31 gauge x 1 ea miscellaneous WEEKLY 30 days 11/19/23/ (BD Ultra-Fine Short Pen #20 ea Needle) venlafaxine 37.5 mg 37.5 mg PO DAILY #90 caps 11/26/23 capsule,extended release 24 hr tizanidine 4 mg tablet 4 mg PO BID PRN muscle spasticity 12/03/23 #180 tabs pseudoephedrine HCl 120 mg 120 mg PO Q12H PRN nasal 12/06/23 tablet,extended release (Sudafed congestion #10 tabs 12 Hour) ondansetron 4 mg disintegrating 4 mg PO Q6H PRN nausea and 12/11/23 tablet vomiting #10 tabs Allergies Allergy/AdvReac Type Severity Reaction Status Date / Time Sulfa (Sulfonamide Allergy Severe stopped Verified 12/06/23 09:35 Antibiotics) breathing, throat swells [facility] Disclaimer: The information contained in this section may have been updated after the patient was seen, as this information can be updated by other users. Medical History Abdominal pain Acid reflux Anxiety and depression Bronchitis Cerebral aneurysm Chest pain, precordial Essential (primary) hypertension Hyperlipidemia Insomnia Surgical History H/O oophorectomy H/O right knee surgery H/O shoulder surgery H/O: hysterectomy History of hysterectomy Family History Mother Diabetes Hypertension Brother Diabetes Hypertension Sister Hypertension Social History Smoking Status: Never smoker years smoked: 13 smoking status stop date: 1998 alcohol intake: never substance use type: denies use current occupational status: employed Travel in the last 8 weeks: None household members: spouse housing: house marital status: 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 caffeine: Yes ROS Obtained: Yes All systems reviewed & no additional complaints except as documented Physical Exam General General appearance: alert and in no apparent distress Head Head exam: atraumatic and normocephalic Eye Eye exam: Present normal appearance, PERRL and EOMI ENT ENT exam: Present mucous membranes moist Neck Neck exam: Present normal inspection, full ROM and trachea midline Respiratory Respiratory exam: Present normal lung sounds bilaterally; Absent respiratory distress, wheezes, stridor, accessory muscle use or prolonged expiratory phase Cardiovascular Cardiovascular exam: Present regular rate and normal rhythm Abdominal Exam Abdominal exam: Present soft and tenderness; Absent distention, guarding, rebound, rigidity, Wilkins's sign, Rovsing's sign or tenderness at McBurney's Point Abdominal tenderness: Present epigastrium and mild Extremities Exam Extremities exam: Absent edema Neurological Exam Neurological exam: Present alert, oriented X3, CN II-XII intact and normal gait; Absent motor sensory deficit Skin Skin exam: Present warm and dry; Absent diaphoresis or erythema Medical Decision Making Medical Records Medical records reviewed: Yes I reviewed the patient's medical records. Bandar Inquiry Pt receiving controlled substance: No Bandar was queried for this patient: No Vital Signs: 12/11/23 10:22 12/11/23 11:00 12/11/23 11:30 Temperature 97.8 F Temperature Source Oral Pulse Rate 70 69 Pulse Rate [Right Radial] 76 Respiratory Rate 18 18 18 Blood Pressure 135/94 H 146/93 H Blood Pressure [Right Arm] 142/97 H Blood Pressure Mean 110 107 Blood Pressure Mean [Right Arm] 112 02 Sat by Pulse Oximetry 98 97 97 Oxygen Delivery Method Room Air 12/11/23 12:00 12/11/23 12:30 12/11/23 13:00 Temperature Temperature Source Pulse Rate 68 66 64 Pulse Rate [Right Radial] Respiratory Rate 18 18 18 Blood Pressure 130/87 127/89 137/88 Blood Pressure [Right Arm] Blood Pressure Mean 107 102 102 Blood Pressure Mean [Right Arm] 02 Sat by Pulse Oximetry 95 98 98 Oxygen Delivery Method Lab Data Lab Results 12/11/23 10:27: WBC 12.3 H, RBC 4.96, Hgb 15.1, Hct 44.4, MCV 89.6, MCH 30.4, MCHC 33.9, RDW 13.1, Plt Count 293, MPV 9.4, Neut % (Auto) 60.0, Lymph % (Auto) 32.7, [place] % (Auto) 3.2, Eos % (Auto) 3.6, Baso % (Auto) 0.5, Neut # (Auto) 7.4, Lymph # (Auto) 4.0, [place] # (Auto) 0.4, Eos # (Auto) 0.5 H, Baso # (Auto) 0.1, ESR 28, Sodium 138, Potassium 3.9, Chloride 107, Carbon Dioxide 25, Anion Gap 9.9, BUN 9, Creatinine 1.10 H, Estimated Creat Clear 75, Estimated GFR 52 L, Est GFR ( Amer) 63, Glucose 110 H, Lactate 1.3, Calcium 9.6, Total Bilirubin 0.5, AST 38 H, ALT 24, Alkaline Phosphatase 35 L, Troponin I < 0.01, C-Reactive Protein 3.4, Total Protein 8.2, Albumin 4.6, Globulin 3.6 H, Albumin/Globulin Ratio 1.3, Lipase 112, Urine Color Yellow, Urine Appearance Clear, Urine pH 6.0, Ur Specific [place] 1.010, Urine Protein Negative, Urine Glucose (UA) Negative, Urine Ketones Negative, Urine Blood Negative, Urine Nitrate Negative, Urine Bilirubin Negative, Urine Urobilinogen 0.2, Ur Leukocyte Esterase Negative, Urine RBC 3-5, Urine WBC Occasional, Ur Squamous Epith Cells 5-10, Urine Bacteria 1+ 12/11/23 10:27 12/11/23 10:27 Orders (Tests/Meds): ED MEDICATIONS Generic Name Dose Route Start Last Admin Trade Name Freq PRN Reason Stop Dose Admin Sodium Chloride 10 ml 12/11/23 10:33 Sodium Chloride 0.9% 10ml Flush Syringe IV 01/10/24 10:32 NEEDED PRN Maintain IV Site Sodium Chloride 10 ml 12/11/23 12:02 12/11/23 12:03 Sodium Chloride 0.9% 10ml Syr (Rad Only) IV 01/10/24 12:01 10 ml NEEDED PRN Administration Maintain IV Site Discontinued Medications Generic Name Dose Route Start Last Admin Trade Name Freq PRN Reason Stop Dose Admin Acetaminophen 1,000 mg 12/11/23 10:30 12/11/23 10:43 Acetaminophen 1,000mg/100ml Vial IV 12/11/23 10:31 1,000 mg ONCE ONE Administration Belladonna Alkaloids 60 ml 12/11/23 10:30 12/11/23 10:43 Belladonna Alkaloids 60 Ml Ml PO 12/11/23 10:31 60 ml ONCE ONE Administration Iopamidol 95 ml 12/11/23 12:02 12/11/23 12:03 Iopamidol-370 (76%);100ml Bottle IV 12/11/23 12:03 95 ml ONCE ONE Administration Ondansetron HCl 4 mg 12/11/23 10:30 12/11/23 10:43 Ondansetron 4mg/2ml Vial IV 12/11/23 10:31 4 mg ONCE ONE Administration Sodium Chloride 40 ml 12/11/23 12:02 12/11/23 12:03 0.9 % Sodium Chloride 50 Ml Vial IV 12/11/23 12:03 40 ml ONCE ONE Administration ORDERS Category Date Time Status CT angio abdomen pelvis Stat Cat Scan 12/11/23 11:16 Completed POCUS Point of Care (ER Only) Stat Exams 12/11/23 10:41 Taken CBC w/Auto Diff [Complete Blood Count Auto Diff] Stat Lab 12/11/23 10:27 Completed CMP [Comprehensive Metabolic Panel] Stat Lab 12/11/23 10:27 Completed CRP [C-Reactive Protein] Stat Lab 12/11/23 10:27 Completed ESR [Erythrocyte Sedimentation Rate] Stat Lab 12/11/23 10:27 Completed Lactic Acid Stat Lab 12/11/23 10:27 Completed Lipase Stat Lab 12/11/23 10:27 Completed Trop I [Troponin I] Stat Lab 12/11/23 10:27 Completed Troponin I Q3H Lab 12/11/23 13:30 Ordered Troponin I Q3H Lab 12/11/23 16:30 Ordered UA [Urinalysis and Microscopic] Stat Lab 12/11/23 10:27 Completed ECG initial Besson Routine Y 12/11/23 10:48 Completed HEART Score History (anamnesis): Slightly suspicious ECG: Normal Age: 45-65 years Risk factors: 1-2 risk factors Troponin: </= normal limit HEART Score: 2 Medical Decision Narrative: 53-year-old female history of hypertension, hyperlipidemia, chronic abdominal pain, IBS, gastric ulcers currently on PPI, hysterectomy/salpingo-oophorectomy presenting with abdominal pain. She states that she has been having abdominal pain for a while, but does not follow-up until December with her GI doctor. Patient states abdominal pain is epigastric, sharp, intermittent, brought on by eating, not positional. She has been having nausea without vomiting. No fevers or chills, hematemesis, hematochezia or melena, or any other concerns. History was obtained via conversation with patient and . On arrival, patient hemodynamically stable, alert, oriented x4, appropriate, GCS 15, moving all extremities spontaneously, pupils equal and reactive to light. Full physical exam performed and significant for well-appearing woman in no acute distress. Hemodynamically stable, afebrile, normotensive, nontachycardic. Abdomen is soft, but tender in epigastrium with mild tenderness. No evidence of peritonitis. No flank tenderness. Cardiopulmonary exam within normal limits. Differential includes PUD, gastritis, enteritis, gastroenteritis, pancreatitis, SBO, colitis, diverticulitis, nephrolithiasis, UTI, cholecystitis, appendicitis, hepatitis, aortic pathology, mesenteric ischemia among others Patient was given GI cocktail, ofirmev for symptomatic management and correction of underlying abnormalities. Heart score 2. Workup independently interpreted and significant for nonactionable CBC or chemistry. Troponin negative. Lipase negative. Urinalysis negative. CT abdomen pelvis without acute intra-abdominal pathology. See radiology read for full review of final results. Independent interpretation of EKG shows sinus rhythm 71 beats a minute without ST or T wave changes concerning for acute ischemia. On reevaluation, patient feeling much better after GI cocktail.Given patient presentation, workup, history, this most likely represents gastric ulcer disease. Because happens immediately with food and better with GI cocktail, most likely esophageal versus gastric versus duodenal. Patient has follow-up w [facility] next month and she was encouraged to keep this. She was also encouraged to continue her PPI and add Maalox for further comfort and she voiced her understanding. Christel sent to pharmacy. Because patient at baseline without signs or symptoms of clinical decompensation, deemed appropriate for discharge. Results were relayed to patient who voiced understanding and were agreeable to outpatient management and follow up. At the time of discharge the patient was hemodynamically stable, tolerating PO, and mobilizing appropriately. Procedures Limited Ultrasound Indication:: Limited RUQ ultrasound Indication: Abdominal pain, nausea Identified structures: -Gallbladder -Gallbladder wall -Common bile duct -Liver Findings: Sonographic Wilkins sign: Absent Gallstones: Absent Sludge: Absent Pericholecystic fluid: Absent Maximal GB wall thickness (mm) (normal is </= 3mm): Normal Common bile duct width (mm) (normal is </= 6mm): Normal Gallbladder width (cm) (normal is < 4cm): Normal Gallbladder length (cm) (normal is < 10cm): Normal Impression: -Normal gallbladder Images were saved to permanent archive The study was technically adequate CPT 99615-62 This study was performed by me, and I personally interpreted all images/videos. Based on my clinical judgement, these images were adequate and did necessitate further imaging. Critical Care Critical Care Time Critical Care Time: No
[2023-12-11 10:38] LABS: Appearance,Urine CLEAR (Clear); Bilirubin,Urine Negative (Negative); Blood, Urine Negative (Negative); Color,Urine YELLOW (Yellow); Glucose,Urine (UA) Negative (Negative); Ketones,Urine Negative (Negative); Leukocyte Esterase,Urine Negative (Negative); Nitrate,Urine Negative (Negative); Protein,Urine Negative (Negative); Urobilinogen,Urine 0.2 EU/dl (0.2)
[2023-12-11] MEDS: ONDANSETRON 4MG/2ML VIAL 4 MG IV (10:43)
[2023-12-11] MEDS: ACETAMINOPHEN 1,000MG/100ML VIAL 1000 MG IV (10:43)
[2023-12-11] MEDS: BELLADONNA ALKALOIDS 60 ML ML PO (10:43)
[2023-12-11 10:46] LABS: Chloride 107 mmol/L (98-107); Potassium 3.9 mmoL/L (3.5-5.1); Sodium 138 mmol/L (136-145)
[2023-12-11 10:47] LABS: Basophils # 0.1 K/mm3 (0-0.2); Basophils % 0.5 % (0.1-2.0); Eosinophils # 0.5 K/mm3 (0.0-0.4); Eosinophils % 3.6 % (0.1-12.0); Hematocrit 44.4 % (37.0-47.0); Hemoglobin 15.1 g/dL (12.2-16.2); Lymphocytes % 32.7 % (10-50); Mean Corpuscular HGB Conc 33.9 g/dL (31.8-35.4); Mean Corpuscular Hemoglobin 30.4 pg (27.0-31.2); Mean Corpuscular Volume 89.6 fl (81-99); Mean Platelet Volume 9.4 fl (7.4-10.4); Monocytes # 0.4 K/mm3 (0.1-1.0); Monocytes % 3.2 % (1.7-9.3); Neutrophils # 7.4 K/mm3 (1.8-7.8); Platelet Count 293 K/mm3 (142-424); Red Blood Count 4.96 M/mm3 (4.20-5.40); Red Cell Distribution Width 13.1 % (11.5-17.5); White Blood Count 12.3 K/mm3 (4.8-10.8)
--- NOTE | 2023-12-11 10:48 | ECG_ITS ---
APPROVED REPORT Exam: Resting ECG HR:71 bpm ECG Measurements Heart Rate 71 AXES MO 180 P 43 QRSd 102 QRS 34 QT 450 T 60 QTc 472 Conclusion SINUS RHYTHM Isolated Q in III ABNORMAL ECG UNCONFIRMED REPORT Electronically signed by : Len Avelar MD 12/11/2023 20:06:29
[2023-12-11 10:49] LABS: Alanine Aminotransferase 24 U/L (12-78); Albumin Level 4.6 g/dl (3.5-5.0); Albumin/Globulin Ratio 1.3 (1.1-1.8); Alkaline Phosphatase 35 U/L (38-126); Anion Gap 9.9 mEq/L (5-15); Aspartate Amino Transferase 38 U/L (14-36); Bilirubin,Total 0.5 mg/dl (0.2-1.3); Blood Urea Nitrogen 9 mg/dl (7-17); Calcium 9.6 mg/dl (8.4-10.2); Carbon Dioxide 25 mmol/L (22.0-30.0); Creatinine Clearance Estimated 75 mL/min (50-200); Estimated Glomerular Filt Rate 52 ml/min (>60); GFR (African American) 63 ML/MIN (>60); Globulin 3.6 g/dL (1.3-3.2); Glucose 110 mg/dl (74-100); Lipase 112 U/L (23-300); Total Protein,Serum 8.2 g/dl (6.3-8.2)
[2023-12-11 10:57] LABS: Lactic Acid 1.3 mmol/L (0.7-2.1)
[2023-12-11 11:02] LABS: Troponin I < 0.01 ng/ml (0.00-0.034)
[2023-12-11 11:11] LABS: Bacteria,Urine 1+ /lpf; WBC,Urine Occasional #/hpf (0-3)
--- NOTE | 2023-12-11 11:16 | CT_ITS ---
FINAL REPORT TECHNIQUE: Pre-and postcontrast images of the abdomen through the pelvis were performed by computed tomography. Extensive 3-D reconstruction images were performed. A CTA was performed. This study was performed with techniques to keep radiation doses as low as reasonably achievable (ALARA). Individualized dose reduction techniques using automated exposure control or adjustment of mA and/or kV according to the patient's size were employed. CLINICAL HISTORY: persistent abd pain with abd bruising. h/o ulcer COMPARISON: None FINDINGS: ABDOMEN: The lung bases are clear. Precontrast images demonstrate no evidence of nephrolithiasis. No adrenal masses are identified. There is mild fatty infiltration of the liver. The gallbladder is present. The spleen and pancreas are unremarkable. PELVIS: The appendix is normal. The urinary bladder is distended. There is no significant free fluid or adenopathy. The bony pelvis is unremarkable. CTA: The abdominal aorta is proper caliber. The SMA, celiac axis, and MATI are patent. There is no significant stenosis or calcification. Single right and dual left renal arteries are widely patent. The iliac arteries are patent bilaterally. IMPRESSION: No significant stenosis or occlusive disease. Mild fatty liver. Reviewed, Interpreted and Dictated by Daniel Sorto MD Transcribed by Deneen Mera Authenticated and [facility]
--- NOTE | 2023-12-11 11:27 | PC.NURSE ---
Rounded on patient. No needs at this time.
--- NOTE | 2023-12-11 11:41 | PC.NURSE ---
Patient to ct.
--- NOTE | 2023-12-11 11:54 | PC.NURSE ---
Patient returned from ct.
[2023-12-11] MEDS: IOPAMIDOL-370 (76%);100ML BOTTLE 95 ML IV (12:03)
[2023-12-11] MEDS: 0.9 % SODIUM CHLORIDE 50 ML VIAL 40 ML IV (12:03)
[2023-12-11] MEDS: SODIUM CHLORIDE 0.9% 10ML SYR (RAD ONLY) 10 ML IV (12:03)
--- NOTE | 2023-12-11 12:05 | PC.NURSE ---
ICE CHIPS PROVIDED PER PT REQUEST. CALL LIGHT WITHIN REACH. AT BEDSIDE. NO FURTHER NEEDS AT THIS TIME
[2023-12-11 12:23] LABS: Erythrocyte Sedimentation Rate 28 mm/hr (0-30)
--- NOTE | 2023-12-11 12:36 | PC.NURSE ---
Rounded on patient no needs at this time.
[2023-12-11 12:58] LABS: C-Reactive Protein 3.4 mg/L (0-4)
--- NOTE | 2023-12-11 13:12 | PC.NURSE ---
DR ALEXANDRE AT BEDSIDE TO UPDATE PT AND ON POC
== END 2023-12-11 13:30 | disposition home or self-care (01) ==
PROVIDERS: Emergency Provider Emergency Medicine; PCP Family Medicine
DX: R10.13 Epigastric pain (principal); K58.0 Irritable bowel syndrome with diarrhea; I10 Essential (primary) hypertension; E78.5 Hyperlipidemia, unspecified; R11.0 Nausea; K21.9 Gastro-esophageal reflux disease without esophagitis; I67.1 Cerebral aneurysm, nonruptured
CPT/HCPCS: 74174; 80053; 81001; 83605; 83690; 84484; 85025; 85651; 86140; 93005; 96374; 96375; 99285; J0131; J2405; Q9967

== ENCOUNTER 2024-02-05 16:28 | Outpatient (CLI) | payer BC, SELFPAY ==
[2024-02-05 18:20] LABS: Amphetamine/Metha Screen,Urine Negative ng/ml (<1000); Barbiturates Screen,Urine Negative ng/ml (<200)
[2024-02-05 18:21] LABS: Benzodiazepines Screen,Urine Negative ng/ml (<200); Cannabinoid Screen,Urine Negative ng/ml (<50)
[2024-02-05 18:22] LABS: Cocaine Screen,Urine Negative ng/ml (<300)
[2024-02-05 18:23] LABS: Methadone Screen,Urine Negative ng/ml (<300)
[2024-02-05 18:26] LABS: Opiate Screen,Urine Negative ng/ml (<300)
[2024-02-05 18:41] LABS: Phencyclidine Screen,Urine Negative ng/ml (<25)
== END 2024-02-05 23:59 ==
LOC: LAB.DROPOF 16:29
PROVIDERS: PCP Family Medicine; Visit Provider Family Medicine
DX: M54.12 Radiculopathy, cervical region (principal); Z79.899 Other long term (current) drug therapy
CPT/HCPCS: 80307

== ENCOUNTER 2024-02-28 11:08 | Outpatient (CLI) | payer BC, SELFPAY ==
[2024-02-28 11:53] LABS: Basophils # 0.1 K/mm3 (0-0.2); Basophils % 0.6 % (0.1-2.0); Eosinophils # 0.2 K/mm3 (0.0-0.4); Eosinophils % 1.3 % (0.1-12.0); Hematocrit 39.6 % (37.0-47.0); Lymphocytes # 3.7 K/mm3 (0.7-4.5); Lymphocytes % 30.8 % (10-50); Mean Corpuscular HGB Conc 32.7 g/dL (31.8-35.4); Mean Corpuscular Hemoglobin 30.4 pg (27.0-31.2); Mean Corpuscular Volume 92.9 fl (81-99); Mean Platelet Volume 9.3 fl (7.4-10.4); Monocytes # 0.6 K/mm3 (0.1-1.0); Monocytes % 4.6 % (1.7-9.3); Neutrophils # 7.6 K/mm3 (1.8-7.8); Neutrophils % 62.8 % (37.0-80.0); Platelet Count 268 K/mm3 (142-424); Red Blood Count 4.27 M/mm3 (4.20-5.40); Red Cell Distribution Width 13.9 % (11.5-17.5); White Blood Count 12.1 K/mm3 (4.8-10.8)
[2024-02-28 12:09] LABS: Chloride 107 mmol/L (98-107); Sodium 137 mmol/L (136-145)
[2024-02-28 12:10] LABS: Potassium 4.2 mmoL/L (3.5-5.1)
[2024-02-28 12:12] LABS: Blood Urea Nitrogen 11 mg/dl (7-17)
[2024-02-28 12:13] LABS: Anion Gap 11.2 mEq/L (5-15); Calcium 10.1 mg/dl (8.4-10.2); Carbon Dioxide 23 mmol/L (22.0-30.0); Estimated Glomerular Filt Rate 75 ml/min (>60); GFR (African American) 90 ML/MIN (>60); Glucose 94 mg/dl (74-100)
== END 2024-02-28 23:59 | disposition home or self-care (01) ==
LOC: LAB 11:10
PROVIDERS: PCP Family Medicine; Visit Provider Surgery
DX: L73.2 Hidradenitis suppurativa (principal); L02.91 Cutaneous abscess, unspecified
CPT/HCPCS: 36415; 80048; 85025

== ENCOUNTER 2024-03-03 12:34 | Day surgery (SDC) | payer BC, SELFPAY ==
[2024-02-28 11:25] VITALS: BMI 62.9
[2024-03-03] VITALS (10 sets, daily range): BP systolic 125–147; BP diastolic 46–85; PULSE 62–76; RESP 12–18; TEMP 35.9–36.6; O2SAT 96–100; BMI 28.5
[2024-03-03] MEDS: LACTATED RINGERS 1000ML 1,000 ML 25 ML IV (13:09)
--- NOTE | 2024-03-03 13:41 | EXP.ANES.CKL ---
[facility] Disclaimer: The information contained in this section may have been updated after the patient was seen, as this information can be updated by other users. Medical History Hypertension Cerebral aneurysm Anxiety and depression Insomnia Bronchitis Acid reflux Hyperlipidemia Essential (primary) hypertension Chest pain, precordial Abdominal pain Surgical History H/O shoulder surgery H/O right knee surgery H/O oophorectomy History of hysterectomy H/O: hysterectomy Family History Mother Diabetes Hypertension Brother Diabetes Hypertension Sister Hypertension Social History Smoking Status: Never smoker years smoked: 13 smoking status stop date: 1998 alcohol intake: never substance use type: denies use current occupational status: employed Travel in the last 8 weeks: None household members: spouse housing: house marital status: 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 Consent for Planned Operative Procedure(s) Verified: Yes Verified Documents: Surgical Consent and History and Physical NPO Status Verified Time NPO: 00:00 Additional verifications Patient : No Anesthesia Reactions: No Hx Blood Transfusions: No Blood Transfusion Reaction: No Cephalosporin Allergy: No Previous Colonoscopy: Yes Airway Assessment Mallampati Score:: Class III C-Spine Mobility Assessed: Yes TMJ Mobility Assessed: Yes Dentition: Good Dentition Neurological Assessment Level of Consciousness: Awake, Alert, Appropriate and Follows Commands Hx Seizures: No Numbness or tingling in extremities: No Anesthesia Plan ASA Class: II Anesthesia Type: General Preoperative Comments Pre-Operative Comments: IBS, Gastriculcer, Hypertension.
--- NOTE | 2024-03-03 14:51 | EXP.OP.NOTE ---
Date of procedure: 03/03/24 Pre-op Diagnosis:: Right groin hidradenitis, right gluteal abscess Post-op Diagnosis:: Same Procedure performed:: Incision and unroofing with debridement of right groin hidradenitis Debridement of skin and subcutaneous tissue from right gluteal area Surgeon:: Murray Gray MD Anesthesia: GIULIANA Estimated blood loss (mL): 10 Clinical Note:: Patient presents for incision and unroofing of apparent right groin hidradenitis. She is a 53-year-old female from [place] referred for her cyst in the groin area. She was seen in the office on 02/27/2023 to evaluate this right groin inflamed cyst/hidradenitis. It had started about 1 week prior to evaluation. She had been using warm compresses. She described significant pain. She tried home self incision and drainage with a needle with no relief. She states that she had previously gotten recurrent cysts in the groin and axillary regions but not in several years. Apparently she has previously been seen by dermatology in the past. She was seen by her primary care provider on 02/25/2024 and rated the pain as 11 out of 10. She was found to have red erythematous firm lesion with fluctuance and tenderness. She was started on doxycycline and sent for surgical consultation. She was seen in the office on 02/27/2023. Examination at that time revealed in the right groin/inguinal area some faint erythema and induration with a punctate area draining some serous fluid without purulence. No evidence of any fluctuance at the time. Options were discussed with her. She was scheduled for planned incision and unroofing of apparent right groin hidradenitis. She presented for planned procedure on today, 03/03/2023. Evaluation of the area in question showed some improvement with no evidence of any drainage with only some mild induration. It was explained to the patient that it may be best to continue with nonoperative management of this area so as to minimize any surgical intervention. It was also explained to her that surgical intervention would leave an open wound at this time and would not be a definitive curative type of procedure as this is usually a recurrent chronic condition. She however was insistent upon proceeding with surgery on this area despite the fact that it had shown improvement with nonoperative management. She also noted an area on her right lateral gluteal region which was quite tender to light touch and showed some drainage. It was explained to the patient with the draining it may not require surgical intervention but she wished to have it excised as well as she stated the area in question would come back . Therefore, plan was made for incision and debridement of both areas including the right inguinal area and right gluteal area. . Operative findings:: In the right groin area this was consistent with nonabscessed hidradenitis with mild induration and subdermal granulation tissue. Right gluteal area was consistent with inflamed skin abscess. . Operative note:: Patient was taken the operating room. She was positioned in supine position. Anesthesia was induced. She was positioned to allow access to both areas. She was prepped and draped in the standard surgical fashion. Attention was first turned to the right groin/inguinal soft tissue infection. Inspection was carried out and there was no fluctuance. There was some mild erythema and induration. There was ultimately noted to be a tiny punctate area draining some serous fluid. This was probed with a blunt probe. Incision was made overlying the probe to unroofed the underlying area using electrocautery. There was no purulence noted. Underlying tissue was debrided with a small curette. It was consistent with chronic not abscessed hidradenitis characterized by epithelialization with granulation tissue. Local anesthetic was infiltrated after irrigation. The wound was packed with a dry gauze. Next attention was turned to the area on the right gluteal region. There was mild induration and fluctuance. Circular incision was made around the area in question. This was consistent with skin abscess. Dissection was carried down to normal subcutaneous tissues using electrocautery. Tissue was sent off as specimen. Hemostasis was achieved with electrocautery. Please note that cultures were sent. Wound was irrigated. Local anesthesia was infiltrated. Wound was packed with portion of 4 x 4 gauze. Clean dry sterile dressing was applied. . Condition: stable Disposition: PACU Complications:: None immediately apparent
[2024-03-03] MEDS: CLINDAMYCIN PHOSPHATE/D5W 900 MG/50 ML PIGGYBACK 106 MG IV (15:00)
[2024-03-03] MEDS: ROPIVACAINE 0.5% 30ML VIAL 150 MG (15:23)
[2024-03-03] MEDS: LIDOCAINE 1% 30ML PF VIAL 30 ML (15:23)
--- NOTE | 2024-03-03 15:35 | P.PNANES_ITS ---
[facility] Anesthesia Record Part I Anesthesia Record I Intake, IV Amount: 700 Hydration: Adequate Estimated blood loss (mL): 2 Urine output (mL): 0 Blood Pressure: 135/85 SaO2: 96 Pulse Rate: 75 Airway Patency: Patent Respiratory Rate: 12 Temperature: 98 F Patient is:: Awake Stable to PACU at:: 15:30
[2024-03-04 07:07] VITALS: BP 140/71; PULSE 76; RESP 18; TEMP 36.3; O2SAT 98
--- NOTE | 2024-03-04 07:07 | EXP.ANES.II ---
[facility] Anesthesia Record Part II Anesthesia Record Part II Discharge Time: 16:00 Destination: Surgical Day Care (OP Surgery) PACU nurse assessment reviewed?: Yes Patient Condition:: Good Anesthesia Complications:: None Swallowing reflex intact?: Yes Airway Patency: Patent Cyanosis?: No Blood Pressure: 140/71 SaO2: 98 Respiratory Rate: 18 Pulse Rate: 76 Temperature: 97.4 F Mental Status: Alert & Oriented Pain level:: 0 Nausea and/or vomitting:: None Intake, IV Amount: 0 Hydration: Adequate
== END 2024-03-03 16:31 | disposition home or self-care (01) ==
PROVIDERS: PCP Family Medicine; Visit Provider Surgery
PROC: (CPT 10060; principal; 2024-03-03 14:15)
DX: L73.2 Hidradenitis suppurativa (principal); L02.31 Cutaneous abscess of buttock
CPT/HCPCS: 10060; 11011; 87070; 87075; 87077; 87205; 96374; J2405

== ENCOUNTER 2024-03-04 14:19 | Outpatient (CLI) | payer BC, SELFPAY ==
--- NOTE | 2024-03-04 14:38 | PC.NURSE ---
[id number]-spoke with vladimir hastings in dr. maddox's office pt to come there during the week for daily dressing change r/t transportation issues and to return to [facility] on the weekends and dr. montilla appointment days
== END 2024-03-04 14:35 | disposition home or self-care (01) ==
LOC: INF 14:19
PROVIDERS: PCP Family Medicine; Visit Provider Surgery
DX: L73.2 Hidradenitis suppurativa (principal); Z48.01 Encounter for change or removal of surgical wound dressing
CPT/HCPCS: G0463

== ENCOUNTER 2024-03-08 10:42 | Outpatient (CLI) | payer BC, SELFPAY | END 2024-03-08 23:59 | disposition home or self-care (01) | LOC: INF 10:43 | PROVIDERS: PCP Family Medicine; Visit Provider Surgery | DX: Z48.01 Encounter for change or removal of surgical wound dressing (principal) | CPT/HCPCS: G0463 ==

== ENCOUNTER 2024-03-09 10:47 | Outpatient (CLI) | payer BC, SELFPAY ==
[2024-03-09] MEDS: SILVER NITRATE APPLICATOR 6 EACH TP (11:15)
[2024-03-09] MEDS: LIDOCAINE 1% W/EPI 1:100,000 20ML VIAL 8 ML IJ (11:20)
--- NOTE | 2024-03-09 11:29 | EXP.SURG.PN ---
Subjective Narrative: I was asked to evaluate in outpatient infusion for continued bleeding from right buttock wound. She is here for dressing change. She states this has been bleeding since last night and will not stop with pressure Exam *Routine Extremities Exam Comments: Right buttock wound with arterial bleeding at the superior aspect. Unresolved with 5 minutes of pressure. Progress Note: A&P Assessment and Plan Assessment and Plan for All Diagnoses:: Right buttock wound with arterial bleeding. I cauterized with silver nitrate and injected with lidocaine and epinephrine. Wound no longer bleeding and dressing applied. She can follow-up for her normal scheduled dressing change tomorrow.
--- NOTE | 2024-03-09 11:49 | PC.NURSE ---
Outpatient here for dressing change, upon arrival patient states her site has been bleeding overnight, upon assessing her wound dressing noted to be saturated with blood, removed dressing and wound had a small area that was actively bleeding, manual pressure held to site for 10 minutes but bleeding continued, Dr Gee called to bedside, applied silver nitrate sticks to wound and injected site with lidocaine with epi, manual pressure appled for an additional five minutes, no bleeding noted when pressure was released, wound cleansed with normal saline, packing inserted, and clean bandage applied, patient given return instructions if site began to bleed again.
== END 2024-03-09 23:59 | disposition home or self-care (01) ==
LOC: INF 10:48
PROVIDERS: PCP Family Medicine; Visit Provider Surgery
DX: Z48.01 Encounter for change or removal of surgical wound dressing (principal)
CPT/HCPCS: G0463

== ENCOUNTER 2024-03-15 08:31 | Outpatient (CLI) | payer BC, SELFPAY | END 2024-03-15 08:49 | disposition home or self-care (01) | LOC: INF 08:31 | PROVIDERS: PCP Family Medicine; Visit Provider Surgery | DX: Z48.01 Encounter for change or removal of surgical wound dressing (principal) | CPT/HCPCS: G0463 ==

== ENCOUNTER 2024-03-17 09:44 | Outpatient (CLI) | payer BC, SELFPAY | END 2024-03-17 23:59 | disposition home or self-care (01) | LOC: INF 09:45 | PROVIDERS: PCP Family Medicine; Visit Provider Surgery | DX: L73.2 Hidradenitis suppurativa (principal); L02.91 Cutaneous abscess, unspecified; Z48.01 Encounter for change or removal of surgical wound dressing | CPT/HCPCS: G0463 ==

== ENCOUNTER 2024-03-21 13:06 | Outpatient (CLI) | payer BC, SELFPAY ==
--- NOTE | 2024-03-21 13:10 | XR_ITS ---
FINAL REPORT CLINICAL HISTORY: Injury to left hand including 4th & 5th digits COMPARISON: None FINDINGS: Three views show minimally displaced oblique fractures at the anterior bases of the third and fourth middle phalanges. The joint spaces appear normal. IMPRESSION: Minimally displaced volar plate fractures of the third and fourth middle phalanges. Reviewed, Interpreted and Dictated by Vianca العراقي MD Transcribed by Deneen Mera Authenticated and [facility]
== END 2024-03-21 23:59 | disposition home or self-care (01) ==
LOC: RAD 13:07
PROVIDERS: PCP Family Medicine; Visit Provider Nurse Practitioner Family
DX: M79.642 Pain in left hand (principal); S69.92XA Unspecified injury of left wrist, hand and finger(s), initial encounter
CPT/HCPCS: 73130

== ENCOUNTER 2024-04-10 09:54 | Outpatient (CLI) | payer BC, SELFPAY ==
--- NOTE | 2024-04-10 10:04 | XR_ITS ---
FINAL REPORT CLINICAL HISTORY: Constipation, vomiting FINDINGS: 2 views of the abdomen were obtained. There is a nonspecific, nonobstructive bowel gas pattern. There is no free air. No abnormal calcifications are identified. Osseous structures are unremarkable. IMPRESSION: Nonspecific, nonobstructive bowel gas pattern. Reviewed, Interpreted and Dictated by Vianca العراقي MD Transcribed by Loyda Fonseca Authenticated and [facility]
--- NOTE | 2024-04-10 10:04 | XR_ITS ---
FINAL REPORT CLINICAL HISTORY: Left hand fx; unable to take off rings FINDINGS: LEFT HAND Three views demonstrate no acute fracture or dislocation. The visualized joint spaces are normally aligned. The soft tissues are unremarkable. IMPRESSION: No acute process. Reviewed, Interpreted and Dictated by Vianca العراقي MD Transcribed by Loyda Fonseca Authenticated and [facility]
== END 2024-04-10 23:59 | disposition home or self-care (01) ==
LOC: RAD 09:54
PROVIDERS: PCP Family Medicine; Visit Provider Nurse Practitioner Family
DX: R10.13 Epigastric pain (principal); K59.00 Constipation, unspecified; R11.2 Nausea with vomiting, unspecified; M25.532 Pain in left wrist; S62.92XA Unspecified fracture of left hand, initial encounter for closed fracture
CPT/HCPCS: 73130; 74019

== ENCOUNTER 2024-05-05 08:28 | Outpatient (CLI) | payer BC, SELFPAY ==
--- NOTE | 2024-05-05 08:35 | XR_ITS ---
FINAL REPORT CLINICAL HISTORY: Left hand finger fx...pt is not able to get rings off COMPARISON: 04/10/2024 FINDINGS: AP, oblique, and lateral views of the left hand were obtained. There is no acute fracture of the left hand. Mild multijoint degenerative change is present. The soft tissues are normal. IMPRESSION: No acute osseous abnormality of the left hand. Reviewed, Interpreted and Dictated by Asiya Davey MD Transcribed by Pham Nino Authenticated and . [facility]
== END 2024-05-05 23:59 | disposition home or self-care (01) ==
PROVIDERS: PCP Family Medicine; Visit Provider Physician Assistant
DX: M79.642 Pain in left hand (principal); S63.639A Sprain of interphalangeal joint of unspecified finger, initial encounter
CPT/HCPCS: 73130

== ENCOUNTER 2024-05-06 12:14 | Emergency (ER) | payer BC, SELFPAY ==
[2024-05-06 12:25] VITALS: BP 139/67; PULSE 72; RESP 20; TEMP 36.6; O2SAT 99; BMI 29.0
--- NOTE | 2024-05-06 12:35 | EXP.UTC ---
Discharge Plan Disposition Patient Disposition: Home, Self-Care Condition: Good Prescriptions Prescriptions: No Action sucralfate [Carafate] 1 gram tablet 1 g PO BID promethazine 25 mg tablet 25 mg PO TID PRN (Reason: nausea and vomiting) Qty: 30 1RF aspirin [Adult Low Dose Aspirin] 81 mg tablet,delayed release (DR/EC) 81 mg PO DAILY Qty: 90 0RF estradiol valerate 20 mg/mL oil 30 mg IM Q4W (DME) pen needle, diabetic [BD Ultra-Fine Mini Pen Needle] 31 gauge x 3/16 needle See Rx Instructions .ROUTE .MEDSUPPLY Qty: 1200 Rx Instructions: As directed estradiol 0.01 % (0.1 mg/gram) cream 1 appful vaginal DAILY Qty: 42.5 2RF Rx Instructions: Apply blueberry size amount vaginally nightly at bedtime for 14 days followed by twice a week thereafter atorvastatin 10 mg tablet See Rx Instructions .ROUTE .COMPLEX Qty: 90 2RF Dose Instruction: TAKE 1 TABLET BY MOUTH DAILY FOR CHOLESTEROL Rx Instructions: TAKE 1 TABLET BY MOUTH DAILY FOR CHOLESTEROL tizanidine 4 mg tablet 4 mg PO BID PRN (Reason: muscle spasticity) Qty: 180 2RF omeprazole 40 mg capsule,delayed release(DR/EC) 40 mg PO BID Qty: 60 1RF propranolol 60 mg capsule,extended release 24 hr See Rx Instructions .ROUTE .COMPLEX Qty: 90 3RF Dose Instruction: TAKE 1 CAPSULE BY MOUTH DAILY FOR HIGH BLOOD PRESSURE Rx Instructions: TAKE 1 CAPSULE BY MOUTH DAILY FOR HIGH BLOOD PRESSURE topiramate 100 mg tablet 100 mg PO HS Qty: 90 2RF venlafaxine 37.5 mg capsule,extended release 24hr 37.5 mg PO DAILY Qty: 90 0RF clonazepam [Klonopin] 0.5 mg tablet 0.5 mg PO HS Qty: 30 1RF Referrals Follow up/Referrals: Anastacio Piña MD [Primary Care Provider] - See instructions Activity Restrictions/Add. Instructions Additional Instructions/Restrictions: *Monitor Temp, Over the counter Motrin or Tylenol as directed/as needed Tylenol every 4 hours and Motrin every 6 hours (as long as your family doctor has told you that you can take it) for fever or pain. and straight to ER if unable to lower temp less than 101.0 after medication given *Warm salt water gargles may help to soothe the throat *Throat Lozenges? *Warm fluids like tea with honey may help to soothe the throat? *Sleep elevated *Humidifier/Vaporizer Follow up IMMEDIATELY for new or worsening symptoms or no Noticeable improvement over the next 48-72 hours. 911 for difficulty breathing or swallowing You were tested for today for COVID19 your test result should be back in the next 24 hours, you may check your results on the [facility] Portal Clinical Impressions Clinical Impression: Viral syndrome Instructions Patient Instructions: DI for Viral Syndrome Discharge ED Provider: Juanita Rose [facility] HPI General Stated complaint: covid test headache sweating Mode of Arrival: Ambulatory Source of Information: Patient Limitations: No Limitations Time Seen by Provider: 05/06/24 12:35 Description of Symptoms (Recalled from Triage Doc. by RN): PATIENT C/O SWEATS, HEADACHE, AND HEADACHE THAT STARTED YESTERDAY EVENING. RECENTLY EXPOSED TO COVID HEENT Symptoms (Recalled from RN notes): Yes Resp Symptoms (Recalled from RN notes): No Skin Symptoms (Recalled from RN notes): No MS Symptoms (Recalled from RN notes): No Functional Status (Recalled from RN notes): WNL History of Present Illness Provider Complaint: Patient states that she was recently exposed to COVID and she started yesterday with body aches, sweating and headache so today she came in to get checked for COVID Related Data Home Medications Medication Instructions Recorded Confirmed estradiol valerate 20 mg/mL 30 mg IM Q4W 09/03/23 05/05/24 intramuscular oil pen needle, diabetic 31 gauge x #1,200 ea 12/06/23 05/05/2401/04 (BD Ultra-Fine Mini Pen Needle) sucralfate 1 gram tablet (Carafate) 1 g PO BID 02/05/24 05/05/24 Previous Rx's Medication Instructions Recorded aspirin 81 mg tablet,delayed 81 mg PO DAILY heart health #90 09/30/21 release (Adult Low Dose Aspirin) tabs atorvastatin 10 mg tablet See Rx Instructions .Route 11/12/23 .COMPLEX #90 tabs tizanidine 4 mg tablet 4 mg PO BID PRN muscle spasticity 12/03/23 #180 tabs omeprazole 40 mg capsule,delayed 40 mg PO BID #60 caps 01/16/24 release propranolol 60 mg capsule,24 See Rx Instructions .Route 02/28/24 hr,extended release .COMPLEX #90 caps topiramate 100 mg tablet 100 mg PO HS migraines #90 tabs 02/28/24 venlafaxine 37.5 mg 37.5 mg PO DAILY #90 caps 02/28/24 capsule,extended release 24 hr clonazepam 0.5 mg tablet (Klonopin) 0.5 mg PO HS #30 tabs 03/18/24 promethazine 25 mg tablet 25 mg PO TID PRN nausea and 04/10/24 vomiting #30 tabs estradiol 0.01% (0.1 mg/gram) 1 appful vaginal DAILY #42.5 grams 04/21/24 vaginal cream Allergies Allergy/AdvReac Type Severity Reaction Status Date / Time Sulfa (Sulfonamide Allergy Severe stopped Verified 05/05/24 08:55 Antibiotics) breathing, throat swells Worker's Comp Is this a Worker's Comp case?: No [facility] Disclaimer: The information contained in this section may have been updated after the patient was seen, as this information can be updated by other users. Medical History Postmenopausal atrophic vaginitis Hypertension Cerebral aneurysm Anxiety and depression Insomnia Bronchitis Acid reflux Hyperlipidemia Essential (primary) hypertension Chest pain, precordial Abdominal pain Surgical History History of colonoscopy H/O shoulder surgery H/O right knee surgery H/O oophorectomy History of hysterectomy H/O: hysterectomy Family History Mother Diabetes Hypertension Brother Diabetes Hypertension Sister Hypertension Social History Smoking Status: Never smoker years smoked: 13 smoking status stop date: 1998 alcohol intake: never substance use type: denies use current occupational status: employed Travel in the last 8 weeks: None household members: spouse housing: house marital status: 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 caffeine: Yes ROS Obtained: Yes All systems reviewed & no additional complaints except as documented and Yes Systems reviewed as appropriate & no additional complaints except as documented Constitutional Constitutional: Reports system reviewed and no additional complaints, except as documented, Reports as per HPI, Reports chills, Reports fatigue, Reports fever(s) and Reports headache(s) ENT Ears, Nose, Mouth, and Throat: Reports system reviewed and no additional complaints, except as documented, Reports as per HPI and Reports headache(s) Cardiovascular Cardiovascular: Reports system reviewed and no additional complaints, except as documented and Reports as per HPI Respiratory Respiratory: Reports system reviewed and no additional complaints, except as documented and Reports as per HPI Gastrointestinal Gastrointestingal: Reports system reviewed and no additional complaints, except as documented and as per HPI Neurologic Neurologic: Reports headache(s) Endocrine Endocrine: Reports fatigue Physical Exam General General appearance: alert and in no apparent distress ENT ENT exam: Present mucous membranes moist Chest Chest inspection: Present normal inspection and symmetric chest wall rise Respiratory Respiratory exam: Present normal lung sounds bilaterally; Absent respiratory distress or wheezes Cardiovascular Cardiovascular exam: Present regular rate, normal rhythm and normal heart sounds Neurological Exam Neurological exam: Present alert, oriented X3 and normal gait Medical Decision Making Bandar Inquiry Pt receiving controlled substance: No Bandar was queried for this patient: No Vital Signs: 05/06/24 12:25 Temperature 97.8 F Temperature Source Oral Pulse Rate [Left Brachial] 72 Respiratory Rate 20 Blood Pressure [Left Arm] 139/67 Blood Pressure Mean [Left Arm] 91 Blood Pressure Source [Left Arm] Automatic Cuff Blood Pressure Position [Left Arm] Sitting 02 Sat by Pulse Oximetry 99 Oxygen Delivery Method Room Air Orders (Tests/Meds): ORDERS Category Date Time Status Covid-19 Nasal PCR (H) Routine Lab 05/06/24 12:33 Ordered
[2024-05-06 12:44] VITALS: BP 139/67; PULSE 72; RESP 20; TEMP 36.6; O2SAT 99
== END 2024-05-06 12:46 | disposition home or self-care (01) ==
PROVIDERS: Emergency Provider Nurse Practitioner; PCP Family Medicine
DX: R51.9 Headache, unspecified (principal); M79.18 Myalgia, other site; Z20.822 Contact with and (suspected) exposure to COVID-19
CPT/HCPCS: 87635; 99212; 99213; G0463

== ENCOUNTER 2024-05-13 12:18 | Outpatient (CLI) | payer BC, SELFPAY ==
[2024-05-13 16:49] LABS: Basophils # 0.1 K/mm3 (0-0.2); Basophils % 0.8 % (0.1-2.0); Eosinophils # 0.2 K/mm3 (0.0-0.4); Eosinophils % 1.7 % (0.1-12.0); Hematocrit 39.6 % (37.0-47.0); Hemoglobin 13.2 g/dL (12.2-16.2); Lymphocytes % 33.7 % (10-50); Mean Corpuscular HGB Conc 33.4 g/dL (31.8-35.4); Mean Corpuscular Hemoglobin 30.9 pg (27.0-31.2); Mean Corpuscular Volume 92.5 fl (81-99); Mean Platelet Volume 10.3 fl (7.4-10.4); Monocytes # 0.6 K/mm3 (0.1-1.0); Monocytes % 5.4 % (1.7-9.3); Neutrophils # 6.9 K/mm3 (1.8-7.8); Neutrophils % 58.3 % (37.0-80.0); Platelet Count 268 K/mm3 (142-424); Red Blood Count 4.28 M/mm3 (4.20-5.40); Red Cell Distribution Width 13.9 % (11.5-17.5); White Blood Count 11.9 K/mm3 (4.8-10.8)
[2024-05-13 16:51] LABS: Alanine Aminotransferase 41 U/L (12-78); Albumin Level 4.2 g/dl (3.5-5.0); Albumin/Globulin Ratio 1.2 (1.1-1.8); Alkaline Phosphatase 36 U/L (38-126); Anion Gap 14.3 mEq/L (5-15); Aspartate Amino Transferase 58 U/L (14-36); Bilirubin,Total 0.4 mg/dl (0.2-1.3); Blood Urea Nitrogen 10 mg/dl (7-17); Calcium 9.7 mg/dl (8.4-10.2); Carbon Dioxide 21 mmol/L (22.0-30.0); Chloride 107 mmol/L (98-107); Estimated Glomerular Filt Rate 75 ml/min (>60); GFR (African American) 90 ML/MIN (>60); Globulin 3.5 g/dL (1.3-3.2); Glucose 112 mg/dl (74-100); Potassium 4.3 mmoL/L (3.5-5.1); Sodium 138 mmol/L (136-145); Total Protein,Serum 7.7 g/dl (6.3-8.2)
[2024-05-13 17:08] LABS: 25-OH Vitamin D, Total 23.5 ng/mL (30-100)
[2024-05-13 17:21] LABS: Thyroid Stimulating Hormone 2.01 uIU/mL (0.465-4.68)
[2024-05-13 17:39] LABS: Vitamin B12 312 pg/mL (239-931)
[2024-05-14 12:30] LABS: Hemoglobin A1C 5.7 % (4.0-6.0)
== END 2024-05-13 23:59 | disposition home or self-care (01) ==
LOC: LAB.DROPOF 05-14 12:18
PROVIDERS: PCP Family Medicine; Visit Provider Family Medicine
DX: R53.83 Other fatigue (principal); R73.09 Other abnormal glucose
CPT/HCPCS: 80050; 80053; 82306; 82607; 83036; 84443; 85025

== ENCOUNTER 2024-05-27 16:00 | Outpatient (RCR) | payer BC, SELFPAY ==
--- NOTE | 2024-05-22 14:13 | HMH.PTOPEV ---
PT Outpatient Evaluation Rehab PT Outpatient Evaluation Start: 05/22/24 13:02 Freq: Status: Active Protocol: Document 05/21/24 14:58 PDESEROUX (Rec: 05/22/24 14:13 PDESEROUX Desktop) E-signed By Yuniel Roth, PT Outpatient Therapy Subjective History Subjective History Pt. is a 53 year old female who presents to [facility] Outpatient Physical Therapy Services in [place] for the initial evaluation this date( 05/22/24) w/ c/o subacute and intermittent LUE hand and 3rd/ 4th digit P!, edema, and stiffness of traumatic onset secondary to a fall at home on 03/20/24. Pt. reports she was at her kitchen sink when she went to turn around and lost her balance. Pt. reports falling backwards and trying to brace herself w/ her LUE hand/digits as DARREN. Pt. denies hitting her head nor loss of consciousness. Initial diagnostic imaging indicates fractures in 3rd/4th digit of LUE per pt. report. Most recent diagnostic imaging after RTMD indicates WNL regarding healing time per pt. report. Pt. reports taping 3rd/4th digits together x8 wks . per Surgeon's instructions. Pt. reports having no symptoms while at rest, however, symptoms will increase to a 7/ 10 if she bumps her hand up against anything. Pt. also vocalizes having an increase in symptoms w/ operating the steering wheel, typing on her work laptop, shaving her legs, and washing her hair. Pt. reports resting and icing provide her w/ some symptom relief. Pt. RTMD 05/26/24. Current medications include Aspirin, Tylenol, Lisinopril, Prilosec, and Topamax. PMH includes brain aneurysm(meets every 6 months w/ ), S/P BUE shldr. RC repairs, S/P RLE knee meniscus repairs, total hysterectomy, hypertension, IBS, GERD, DVT. New diagnosis of cancer in past 12 No months? Chief Complaint Pain,Stiff,Swelling,Catches/ Locks,Weakness,Decreased Reimbursement Consultant Strength Symptom Type Ache,Throb,Sharp,Stabbing Symptoms Relieved By Rest/Positioning,Ice,Brace/ Support Symptoms Aggravated By Physical Activity,Lifting Prior Functional Limitations None Current Functional Limitations Lifting,Housework,Dressing, Desk Work/Reading,Driving, Sleeping,Recreation Activity Symptom Description Intermittent,Activity Dependent Level of pain today (0-10) 0 Pain scale - at its best (0-10) 0 Pain scale - at its worst (0-10) 7 Wrist/Hand Eval Palpation Tenderness/Visual Exam Wrist/Hand Palpation Findings Tenderness erythema hand/finger exam standard left Wrist/Hand Palpation Overall Comment grade 4 +TTP to LUE 3rd/4th PIP jts. Flexibility Deficits Wrist Extensors Muscle Length (L) Severe Tightness Wrist Flexors Muscle Length (R) Moderate Tightness Hand Intrinsics Muscle Length (L) Severe Tightness Finger Range of Motion Left Ring Finger Finger ROM Limitations Soft Tissue Tightness,Muscle Weakness,Muscle Tone,Pain Finger Metacarpophalangeal Flexion WFL Active Range of Motion (degrees) Finger Metacarpophalangeal Extension WFL Active Range of Motion (degrees) Finger Proximal Interphalangeal Flexion 42 Active Range (degrees) Finger Proximal Interphalangeal Flexion 49 Passive Range (degrees) Finger Proximal Interphalangeal WFL Extension Active Range (degrees) Finger Distal Interphalangeal Flexion 5 Active Range of Motion (degrees) Finger Distal Interphalangeal Flexion 8 Passive Range Motion (degrees) Finger Distal Interphalangeal Extension WFL Active Range Motion (degrees) Left Middle Finger Finger ROM Limitations Soft Tissue Tightness,Muscle Weakness,Muscle Tone,Pain Finger Metacarpophalangeal Flexion 10 Active Range of Motion (degrees) Finger Metacarpophalangeal Flexion 23 Passive Range of Motion (degrees) Finger Metacarpophalangeal Extension WFL Active Range of Motion (degrees) Finger Proximal Interphalangeal Flexion 40 Active Range (degrees) Finger Proximal Interphalangeal Flexion 47 Passive Range (degrees) Finger Proximal Interphalangeal +14 Extension Active Range (degrees) Finger Proximal Interphalangeal +11 Extension Passive Range (degrees) Finger Distal Interphalangeal Flexion 25 Active Range of Motion (degrees) Finger Distal Interphalangeal Flexion 31 Passive Range Motion (degrees) Finger Distal Interphalangeal Extension WFL Active Range Motion (degrees) Hand/Finger Manual Muscle testing Left Ring Finger Finger Flexion Strength Grade 3 Fair Finger Extension Strength Grade 3 Fair Finger Abduction Strength Grade 3 Fair Finger Adduction Strength Grade 3 Fair Lumbricals Strength Grade - FI 3 Fair Left Middle Finger Finger Flexion Strength Grade 3 Fair Finger Extension Strength Grade 3 Fair Finger Abduction Strength Grade 3 Fair Finger Adduction Strength Grade 3 Fair Lumbricals Strength Grade - FI 3 Fair Hand/Finger Accessory Movements Left Ring Finger Metacarpal Phalangeal Radial [place] Moderately Decreased Movement (finger JAM) Metacarpal Phalangeal Ulnar [place] Moderately Decreased Movement (finger JAM) Metacarpal Phalangeal Dorsal [place] ( Moderately Decreased finger JAM) Metacarpal Phalangeal Volar [place] ( Moderately Decreased finger JAM) Finger Accessory Movements that Elicit PIP Dorsal [place],PIP Volar Symptoms [place],PIP Radial [place],PIP Ulnar [place],PIP Distraction Proximal Interphalangeal Radial [place] Severely Decreased Movement (finger JAM) Proximal Interphalangeal Ulnar [place] Severely Decreased Movement (finger JAM) Proximal Interphalangeal Dorsal [place] Severely Decreased Movement (finger JAM0 Proximal Interphalangeal Volar [place] Severely Decreased Movement (finger JAM) Distal Interphalangeal Radial [place] Moderately Decreased Movement (finger JAM) Distal Interphalangeal Ulnar [place] Moderately Decreased Movement (finger JAM) Distal Interphalangeal Dorsal [place] Moderately Decreased Movement (finger JAM) Distal Interphalangeal Volar [place] Moderately Decreased Movement (finger JAM) Left Middle Finger Metacarpal Phalangeal Radial [place] Moderately Decreased Movement (finger JAM) Metacarpal Phalangeal Ulnar [place] Moderately Decreased Movement (finger JAM) Metacarpal Phalangeal Dorsal [place] ( Moderately Decreased finger JAM) Metacarpal Phalangeal Volar [place] ( Moderately Decreased finger JAM) Finger Accessory Movements that Elicit PIP Dorsal [place],PIP Volar Symptoms [place],PIP Radial [place],PIP Ulnar [place],PIP Distraction Proximal Interphalangeal Radial [place] Severely Decreased Movement (finger JAM) Proximal Interphalangeal Ulnar [place] Severely Decreased Movement (finger JAM) Proximal Interphalangeal Dorsal [place] Severely Decreased Movement (finger JAM0 Proximal Interphalangeal Volar [place] Severely Decreased Movement (finger JAM) Distal Interphalangeal Radial [place] Moderately Decreased Movement (finger JAM) Distal Interphalangeal Ulnar [place] Moderately Decreased Movement (finger JAM) Distal Interphalangeal Volar [place] Moderately Decreased Movement (finger JAM) Wrist/Hand Muscle Tone Finger Extensors Muscle Tone Description Severe Hypertonicity Finger Flexors Muscle Tone Description Moderate Hypertonicity Wrist Extensors Muscle Tone Description Severe Hypertonicity Wrist Flexors Muscle Tone Description Moderate Hypertonicity Outpatient Therapy Assessment Impairments Problems/Impairmments Palpation Tenderness,Impaired Range of Motion,Impaired Strength,Impaired Driving, Impaired Lifting,Impaired Dressing,Impaired Shower/ Bathing,Impaired Household Care,Impaired Recreational Activities,Impaired Work Activities,Impaired Desk/ Computer Activities,Increased Edema,Subjective C/O Pain, Impaired Self Care/Self Management Prognosis Rehab Potential Good Comment w/ HEP compliancy Clinical Impression Consistent with Diagnosis Yes Consistent with LUE 3rd/4th digit fxs. Short Term Goals Number of Weeks 2 Decreased Palpation Tenderness Yes: grade 1-2 +TTP to TTP assessment above Decrease Subjective C/O Pain Yes: worse:02/28 Patient to be Ind w/ HEP Yes Container Repairer Goals Number of Weeks 6 Decreased Palpation Tenderness Yes: grade 1 +TTP to TTP assessment above Increase Range of Motion Yes: LUE 3rd/4th digit MCP/PIP /DIP flexion/ext. A/PROM WFL grossly w/o difficult Increase Strength Yes: LUE 3rd/4th digit flexor/ extensor 4+ to 5/ grossly w/o difficult Increase Ability to Drive/Ride in Car Yes: Pt. will be able to operate the steering wheel w/ the LUE w/o difficulty Improve Ability to Dress Self Yes: Pt. will be able to dress /undress self w/o difficulty w / LUE Improve Ability to Shower/Bathe Self Yes: Pt. will be able to wash her hair w/ the LUE w/o difficulty Improve Ability For Household Care Yes Improve Tolerance to Desk/Computer Yes: Pt. will be able to type Activities on her work laptop w/ the LUE w/o difficulty Improve Quick Dash Score Yes Decrease Subjective C/O Pain Yes: worse:-12/01 Patient to be Ind w/ Advanced HEP Yes Outpatient Therapy Plan of Care Treatment Plan May Include Therapeutic Exercise Including Home Yes Exercise Program Manual Therapy Techniques Yes Neuromuscular Re-education Yes Therapeutic Activities to Return to Yes Previous Functional/Work Level ADL/Self Care Education Yes Thermal Modalities Yes Electrical Stimulation Yes Ultrasound/Phonophoresis Yes Iontophoresis Yes Parrafin Yes Vasopneumatic Compression Pump Yes Massage Yes Eval/Re-Eval Yes Frequency Times per week 2 Duration Number of Weeks 6 Addendums This patient is a candidate for social No or vocational rehab? Patient/Guardian verbally acknowledges Yes understanding of treatment program and consents to further treatment? Patient/Guardian verbally acknowledges Yes understanding of diagnosis, prognosis and goals for treatment? Eval Complexity PT Charges 16397 - Moderate Complexity Shoulder/Elbow Eval Shoulder Objective Measurements Elbow Objective Measurements PHYSICIAN CERTIFICATION: I certify the specified therapy services for Kristina Gomez are required, authorized, and reviewed every 30 days.
== END 2024-07-07 15:31 | disposition home or self-care (01) ==
LOC: PT 16:00
PROVIDERS: Visit Provider Physician Assistant
DX: S63.635A Sprain of interphalangeal joint of left ring finger, initial encounter (principal); S63.637A Sprain of interphalangeal joint of left little finger, initial encounter
CPT/HCPCS: 97110; 97140; 97163

== ENCOUNTER 2024-09-27 10:35 | Emergency (ER) | payer BC, SELFPAY ==
[2024-09-27] VITALS (8 sets, daily range): BP systolic 123–166; BP diastolic 84–104; PULSE 70–80; RESP 13–18; TEMP 36.7; O2SAT 98–100; BMI 30.7
--- NOTE | 2024-09-27 10:39 | ECG_ITS ---
APPROVED REPORT Exam: Resting ECG HR:77 bpm ECG Measurements Heart Rate 77 AXES NE 164 P 63 QRSd 89 QRS 52 QT 427 T 59 QTc 459 Conclusion SINUS RHYTHM NORMAL ECG UNCONFIRMED REPORT Electronically signed by : SANTANA FARRIS, 09/30/2024 06:42:47
--- NOTE | 2024-09-27 10:44 | ED_ITS ---
Discharge Plan Disposition Patient Disposition: Home, Self-Care Condition: Good Prescriptions Prescriptions: New lidocaine 5 % adhesive patch,medicated 1 patch topical Q24H Qty: 15 0RF Rx Instructions: leave on most painful area for up to 12 hrs No Action sucralfate [Carafate] 1 gram tablet 1 g PO BID clindamycin phosphate 1 % solution topical chlorhexidine gluconate [Hibiclens] 4 % liquid topical Linzess 72 mcg capsule 72 mcg PO DAILY Cosentyx UnoReady Pen 300 mg/2 mL (150 mg/mL) pen injector SQ azithromycin 250 mg tablet See Rx Instructions PO .COMPLEX Qty: 6 0RF Rx Instructions: For 250 mg dose pack: take 500 mg today (day 1), then 250 mg for 4 days (days 2-5) PO pseudoephedrine HCl 120 mg tablet extended release 120 mg PO Q12H Qty: 20 1RF fluconazole 150 mg tablet 150 mg PO Q3D Qty: 4 0RF hydrocodone-chlorpheniramine 10-8 mg/5 mL suspension,extended rel 12 hr 5 ml PO Q12H PRN (Reason: cough) Qty: 70 0RF aspirin [Adult Low Dose Aspirin] 81 mg tablet,delayed release (DR/EC) 81 mg PO DAILY Qty: 90 0RF estradiol valerate 20 mg/mL oil 30 mg IM Q4W (DME) pen needle, diabetic [BD Ultra-Fine Mini Pen Needle] 31 gauge x 3/16 needle See Rx Instructions .ROUTE .MEDSUPPLY Qty: 1200 Rx Instructions: As directed tizanidine 4 mg tablet 4 mg PO BID PRN (Reason: muscle spasticity) Qty: 180 2RF propranolol 60 mg capsule,extended release 24 hr See Rx Instructions .ROUTE .COMPLEX Qty: 90 3RF Dose Instruction: TAKE 1 CAPSULE BY MOUTH DAILY FOR HIGH BLOOD PRESSURE Rx Instructions: TAKE 1 CAPSULE BY MOUTH DAILY FOR HIGH BLOOD PRESSURE topiramate 100 mg tablet 100 mg PO HS Qty: 90 2RF atorvastatin 10 mg tablet See Rx Instructions .ROUTE .COMPLEX Qty: 90 2RF Dose Instruction: TAKE 1 TABLET BY MOUTH DAILY FOR CHOLESTEROL Rx Instructions: TAKE 1 TABLET BY MOUTH DAILY FOR CHOLESTEROL clonazepam [Klonopin] 0.5 mg tablet 0.5 mg PO HS Qty: 30 1RF venlafaxine 37.5 mg capsule,extended release 24hr 37.5 mg PO DAILY Qty: 90 0RF omeprazole 40 mg capsule,delayed release(DR/EC) 40 mg PO BID Qty: 60 1RF Referrals Follow up/Referrals: Provider,Referral, [Referring] - See instructions Clinical Impressions Clinical Impression: COVID-19 Stand Alone Forms Stand Alone Forms: Work/School Release Print Language Print Language: Welsh Discharge ED Provider: Pepito Saenz Adult HPI General Chief complaint: Shortness of Breath/Dyspnea Stated complaint: cp Time Seen by Provider: 09/27/24 10:42 History of Present Illness HPI narrative: Patient is a 54-year-old past medical history of IBS, Hydranitis suppurativa, hypertension present chest pain. Patient says she has been having chest pain for the last couple of days that gets worse when she takes a deep breath then or coughs. About 2 weeks ago she was placed on azithromycin with her PCP but has continued to have coughing. She has not had chest pain like this in the past, but it continues to persist prompting the visit today. Patient has not tried any medications prior to arrival. Patient said that her pain does not get worse with ambulation. At this time patient denies shortness of breath, nausea, vomiting, diarrhea, abdominal pain Related Data Home Medications ?Medication ?Instructions ?Recorded ?Confirmed estradiol valerate 20 mg/mL 30 mg IM Q4W 09/03/23 09/15/24 intramuscular oil pen needle, diabetic 31 gauge x #1,200 ea 12/06/23 09/15/2401/04 (BD Ultra-Fine Mini Pen Needle) sucralfate 1 gram tablet (Carafate) 1 g PO BID 02/05/24 09/15/24 linaclotide 72 mcg capsule 72 mcg PO DAILY 05/19/24 09/15/24 (Linzess) chlorhexidine gluconate 4 % topical 08/12/24 09/15/24 topical liquid (Hibiclens) clindamycin phosphate 1 % topical topical 08/12/24 09/15/24 solution secukinumab 300 mg/2 mL (150 mg SQ 08/18/24 09/15/24 mg/mL) subcutaneous pen injector (Cosentyx UnoReady Pen) Previous Rx's ?Medication ?Instructions ?Recorded aspirin 81 mg tablet,delayed 81 mg PO DAILY heart health #90 09/30/21 release (Adult Low Dose Aspirin) tabs tizanidine 4 mg tablet 4 mg PO BID PRN muscle spasticity 12/03/23 #180 tabs propranolol 60 mg capsule,24 See Rx Instructions .Route 02/28/24 hr,extended release .COMPLEX #90 caps topiramate 100 mg tablet 100 mg PO HS migraines #90 tabs 02/28/24 atorvastatin 10 mg tablet See Rx Instructions .Route 06/17/24 .COMPLEX #90 tabs clonazepam 0.5 mg tablet (Klonopin) 0.5 mg PO HS #30 tabs 08/18/24 azithromycin 250 mg tablet See Rx Instructions PO .COMPLEX #6 08/27/24 tabs fluconazole 150 mg tablet 150 mg PO Q3D 4 doses #4 tabs 08/27/24 hydrocodone 10 mg-chlorpheniramine 5 ml PO Q12H PRN cough #70 mL 08/27/24 8 mg/5 mL oral susp extend.rel 12hr pseudoephedrine HCl 120 mg 120 mg PO Q12H #20 tabs 08/27/24 tablet,extended release venlafaxine 37.5 mg 37.5 mg PO DAILY #90 caps 09/03/24 capsule,extended release 24 hr omeprazole 40 mg capsule,delayed 40 mg PO BID #60 caps 09/09/24 release lidocaine 5 % topical patch 1 patch topical Q24H #15 ea 09/27/24 Allergies Allergy/AdvReac Type Severity Reaction Status Date / Time Sulfa (Sulfonamide Allergy Severe stopped Verified 09/15/24 09:08 Antibiotics) breathing, throat swells PFSH PFSH Disclaimer: The information contained in this section may have been updated after the patient was seen, as this information can be updated by other users. Medical History Postmenopausal atrophic vaginitis Hypertension Cerebral aneurysm Anxiety and depression Insomnia Bronchitis Acid reflux Hyperlipidemia Essential (primary) hypertension Chest pain, precordial Abdominal pain Surgical History History of colonoscopy H/O shoulder surgery H/O right knee surgery H/O oophorectomy History of hysterectomy H/O: hysterectomy Family History Mother Diabetes Hypertension Brother Diabetes Hypertension Sister Hypertension Social History Smoking Status: Never smoker years smoked: 13 smoking status stop date: 1998 alcohol intake: never substance use type: denies use current occupational status: employed Travel in the last 8 weeks: None household members: spouse housing: house marital status: 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 caffeine: Yes Other Medical History Have you received the Flu Vaccine for this season: No Have you received the Pneumonia Vaccine: No ROS Obtained: Yes All systems reviewed & no additional complaints except as documented Physical Exam General General appearance: alert and in no apparent distress Head Head exam: atraumatic, normocephalic and normal inspection Eye Eye exam: Present normal appearance, PERRL and EOMI ENT ENT exam: Present normal exam, normal oropharynx, mucous membranes moist, TM's normal bilaterally and normal external ear exam Neck Neck exam: Present normal inspection, full ROM and trachea midline; Absent meningismus or lymphadenopathy Chest Chest inspection: Present normal inspection, symmetric chest wall rise and tenderness (Left upper chest pain reproducible with palpation) Respiratory Respiratory exam: Present normal lung sounds bilaterally; Absent respiratory distress Cardiovascular Cardiovascular exam: Present regular rate and normal rhythm; Absent JVD Abdominal Exam Abdominal exam: Present soft and normal bowel sounds; Absent distention, tenderness or guarding Extremities Exam Extremities exam: Present normal inspection, full ROM and normal capillary refill; Absent calf tenderness Back Exam Back exam: Present normal inspection; Absent tenderness Neurological Exam Neurological exam: Present alert and oriented X3 Psychiatric Psychiatric exam: Present normal affect and normal mood Skin Skin exam: Present warm, dry, intact and normal color Lymphatic Lymphatic Findings: no adenopathy Medical Decision Making Medical Records Medical records reviewed: Yes I reviewed the patient's medical records. Screening: Per USPSTF and CDC recommendations, given the prevalence of disease in our region, it is our hospital?s policy to screen for HIV and viral Hepatitis for all patients aged 18 and over and those with ongoing risk factors. [place] Inquiry Pt receiving controlled substance: No Vital Signs: 09/27/24 10:40 09/27/24 11:00 09/27/24 12:01 Temperature 98.0 F Temperature Source Oral Pulse Rate 75 70 Pulse Rate [Right Radial] 78 Respiratory Rate 18 15 16 Blood Pressure 123/84 164/99 H Blood Pressure [Left Arm] 166/98 H Blood Pressure Mean 120 Blood Pressure Mean [Left Arm] 120 02 Sat by Pulse Oximetry 99 98 99 Oxygen Delivery Method Room Air Room Air 09/27/24 12:30 09/27/24 13:00 09/27/24 13:30 Temperature Temperature Source Pulse Rate 80 70 78 Pulse Rate [Right Radial] Respiratory Rate 16 13 16 Blood Pressure 146/91 H 163/102 H 166/104 H Blood Pressure [Left Arm] Blood Pressure Mean 128 Blood Pressure Mean [Left Arm] 02 Sat by Pulse Oximetry 99 100 99 Oxygen Delivery Method Room Air Room Air 09/27/24 14:01 09/27/24 14:05 Temperature 98.0 F Temperature Source Oral Pulse Rate 77 79 Pulse Rate [Right Radial] Respiratory Rate 16 18 Blood Pressure 147/93 H 166/104 H Blood Pressure [Left Arm] Blood Pressure Mean Blood Pressure Mean [Left Arm] 02 Sat by Pulse Oximetry 100 Oxygen Delivery Method Room Air Lab Data Lab Results 09/27/24 10:43: HIV 1&2 Antibody Rapid Nonreactive 09/27/24 10:45: WBC 11.4 H, RBC 4.47, Hgb 13.6, Hct 38.9, MCV 86.9, MCH 30.4, MCHC 35.0, RDW 13.4, Plt Count 220, MPV 9.0, Neut % (Auto) 74.8, Lymph % (Auto) 17.9, [place] % (Auto) 4.9, Eos % (Auto) 1.4, Baso % (Auto) 1.0, Neut # (Auto) 8.5 H, Lymph # (Auto) 2.0, [place] # (Auto) 0.6, Eos # (Auto) 0.2, Baso # (Auto) 0.1, Sodium 137, Potassium 3.9, Chloride 106, Carbon Dioxide 23, Anion Gap 11.9, BUN 9, Creatinine 0.90, Estimated Creat Clear 96, Estimated GFR 65, Est GFR ( Amer) 79, Glucose 129 H, Calcium 9.0, Total Bilirubin 0.6, AST 67 H, ALT 30, A lkaline Phosphatase 34 L, Troponin I < 0.01, Total Protein 7.2, Albumin 4.2, Globulin 3.0, Albumin/Globulin Ratio 1.4 09/27/24 11:11: SARS-CoV-2 (PCR) Detected A, Influenza A Untype (PCR) Not detected, Influenza Type B (PCR) Not detected 09/27/24 12:46: Troponin I < 0.01 09/27/24 10:45 09/27/24 10:45 Orders (Tests/Meds): ED MEDICATIONS Discontinued Medications Generic Name Dose Route Start Last Admin Trade Name Niurka PRN Reason Stop Dose Admin Acetaminophen 500 mg 09/27/24 11:07 09/27/24 11:16 Acetaminophen 500mg Tab PO 09/27/24 11:08 500 mg ONCE ONE Administration Ketorolac Tromethamine 15 mg 09/27/24 11:07 09/27/24 11:16 Ketorolac 30mg/Ml Vial IV 09/27/24 11:08 15 mg ONCE ONE Administration Lidocaine 1 each 09/27/24 11:15 09/27/24 11:15 Lidocaine 5% Transdermal Patch TP 10/27/24 11:14 1 each Q24H AMIRAH Administration Ondansetron HCl 4 mg 09/27/24 11:07 09/27/24 11:09 Ondansetron 4mg Odt SL 09/27/24 11:08 4 mg ONCE ONE Administration ORDERS Category Date Time Status XR chest 2V Stat Exams 09/27/24 11:00 Completed Complete Blood Count Auto Diff Stat Lab 09/27/24 10:45 Completed Comprehensive Metabolic Panel Stat Lab 09/27/24 10:45 Completed HIV (1&2) Antibody Rapid Stat Lab 09/27/24 10:43 Completed Hep C Ab with Reflex to RNA Stat Lab 09/27/24 10:43 Received Rapid PCR Covid and Flu A/B Stat Lab 09/27/24 11:11 Completed Troponin I Q3H Lab 09/27/24 12:46 Completed Troponin I Stat Lab 09/27/24 10:45 Completed HEART Score History (anamnesis): Slightly suspicious ECG: Normal Age: 45-65 years Risk factors: 1-2 risk factors Troponin: </= normal limit HEART Score: 2 Medical Decision Narrative: In summary, this 54-year-old female presents to the emergency department today with chest pain. On initial evaluation patient is patient hemodynamically stable alert and in no acute distress. Patient is coughing and chest pain is reproducible with palpation and deep breaths.. Differential diagnosis includes but is not limited to ACS, arrhythmia, viral syndrome, pleurisy. Based on these concerns, I ordered chest x-ray, labs and pain medicine. ECG personally interpreted demonstrates no ST elevations, no prolonged intervals. Patient received Toradol, Tylenol and lidocaine patch for treatment. Labs personally reviewed demonstrate mild leukocytosis, 2 negative troponins, mildly elevated LFTs, positive COVID test. XR personally interpreted demonstrates no acute pneumothorax, pneumonia. On reassessment patient's pain is well-controlled, I discussed with patient about her diagnosis of COVID and the reproducible pain that she is having. Have lower suspicion for ACS with reproducible pain and EKG without ischemic changes. Patient has a heart score of 2 for her age and risk factors. Patient's prescriptions were reviewed and prescribed Toradol. Of note, social determinants of health include poor health literacy. Procedures Risk/Benefits of Procedure(s) Were Explained: Yes Critical Care Critical Care Time Critical Care Time: No
--- NOTE | 2024-09-27 11:00 | XR_ITS ---
PROCEDURE INFORMATION: Exam: XR Chest Exam date and time: 09/27/2024 11:20 AM Age: 54 years old Clinical indication: Other: Chest pain TECHNIQUE: Imaging protocol: Radiologic exam of the chest. Views: 2 views. COMPARISON: CR XR CHEST PORTABLE 04/26/2021 1:12 PM FINDINGS: Lungs: Low lung volumes with bronchovascular crowding. No focal consolidation. Pleural spaces: No pneumothorax or pleural effusion. Heart/Mediastinum: Apparent cardiomegaly, accentuated by low volumes. Bones/joints: No acute osseous or soft tissue abnormality. IMPRESSION: 1. Low lung volumes with bronchovascular crowding. 2. Apparent cardiomegaly.
[2024-09-27 11:02] LABS: Basophils # 0.1 K/mm3 (0-0.2); Eosinophils # 0.2 K/mm3 (0.0-0.4); Eosinophils % 1.4 % (0.1-12.0); Hematocrit 38.9 % (37.0-47.0); Hemoglobin 13.6 g/dL (12.2-16.2); Lymphocytes % 17.9 % (10-50); Mean Corpuscular Hemoglobin 30.4 pg (27.0-31.2); Mean Corpuscular Volume 86.9 fl (81-99); Monocytes # 0.6 K/mm3 (0.1-1.0); Monocytes % 4.9 % (1.7-9.3); Neutrophils # 8.5 K/mm3 (1.8-7.8); Neutrophils % 74.8 % (37.0-80.0); Platelet Count 220 K/mm3 (142-424); Red Blood Count 4.47 M/mm3 (4.20-5.40); Red Cell Distribution Width 13.4 % (11.5-17.5); White Blood Count 11.4 K/mm3 (4.8-10.8)
[2024-09-27 11:07] LABS: Alanine Aminotransferase 30 U/L (12-78); Albumin Level 4.2 g/dl (3.5-5.0); Albumin/Globulin Ratio 1.4 (1.1-1.8); Alkaline Phosphatase 34 U/L (38-126); Anion Gap 11.9 mEq/L (5-15); Aspartate Amino Transferase 67 U/L (14-36); Bilirubin,Total 0.6 mg/dl (0.2-1.3); Blood Urea Nitrogen 9 mg/dl (7-17); Carbon Dioxide 23 mmol/L (22.0-30.0); Chloride 106 mmol/L (98-107); Creatinine Clearance Estimated 96 mL/min (50-200); Estimated Glomerular Filt Rate 65 ml/min (>60); GFR (African American) 79 ML/MIN (>60); Glucose 129 mg/dl (74-100); Potassium 3.9 mmoL/L (3.5-5.1); Sodium 137 mmol/L (136-145); Total Protein,Serum 7.2 g/dl (6.3-8.2)
[2024-09-27] MEDS: ONDANSETRON 4MG ODT 4 MG SL (11:09)
[2024-09-27 11:14] LABS: Influenza A, PCR Not Detected (NotDetected); Influenza B, PCR Not Detected (NotDetected)
[2024-09-27] MEDS: LIDOCAINE 5% TRANSDERMAL PATCH 1 EACH TP (11:15)
[2024-09-27] MEDS: KETOROLAC 30MG/ML VIAL 15 MG IV (11:16)
[2024-09-27] MEDS: ACETAMINOPHEN 500MG TAB 500 MG PO (11:16)
[2024-09-27 11:23] LABS: Troponin I < 0.01 ng/ml (0.00-0.034)
[2024-09-27 12:30] LABS: Coronavirus 19, PCR Detected (NotDetected)
[2024-09-27 12:58] LABS: HIV (1&2) Antibody Rapid NONREACTIVE (NONREACTIVE)
[2024-09-27 13:42] LABS: Troponin I < 0.01 ng/ml (0.00-0.034)
[2024-09-28 08:36] LABS: HCV Ab Non Reactive (Non Reactive)
== END 2024-09-27 14:07 | disposition home or self-care (01) ==
PROVIDERS: Emergency Provider Student in an Organized Health Care Education/Training Program; PCP Family Medicine
DX: U07.1 COVID-19 (principal); R07.9 Chest pain, unspecified; R06.02 Shortness of breath; R05.9 Cough, unspecified
CPT/HCPCS: 71046; 80053; 84484; 85025; 86803; 87389; 87636; 93005; 96374; 99284; J1885; Q0162

== ENCOUNTER 2024-12-16 12:48 | Outpatient (CLI) | payer BC, SELFPAY ==
--- NOTE | 2024-12-16 12:49 | MM_ITS ---
PROCEDURE INFORMATION: Exam: MG Bilateral Screening 3D Mammography Exam date and time: 12/16/2024 1:28 PM Age: 54 years old Clinical indication: Screening examination. TECHNIQUE: Imaging protocol: Bilateral Screening tomosynthesis and 2D mammography including computer-aided detection (CAD) when performed. COMPARISON: MG MM DIG SCREENING MAMM BI W/CAD 11/26/2023 9:53 AM FINDINGS: MAMMOGRAPHY: Breast composition: There are scattered areas of fibroglandular density. Mass: None. Architectural distortion: None. Calcifications: No suspicious calcifications. Asymmetric density: None. Skin thickening: None. Axillary adenopathy: None. IMPRESSION: No mammographic evidence of malignancy. Annual screening is recommended unless otherwise clinically indicated. ASSESSMENT: BI-RADS Category 1: Negative.
== END 2024-12-16 23:59 | disposition home or self-care (01) ==
LOC: RAD 12:49
PROVIDERS: PCP Family Medicine; Visit Provider Family Medicine
DX: Z12.31 Encounter for screening mammogram for malignant neoplasm of breast (principal)
CPT/HCPCS: 77063; 77067

== ENCOUNTER 2025-06-24 08:47 | Emergency (ER) | payer BC, SELFPAY ==
[2025-06-24] VITALS (12 sets, daily range): BP systolic 115–155; BP diastolic 66–95; PULSE 68–82; RESP 16–18; TEMP 36.8–37.1; O2SAT 99–100; BMI 26.6
--- OUTSIDE RECORDS SUMMARY | 2025-06-24 09:05 | XMS_ITS | Clinical Summary ---
Author Organization [facility] Address [address] [place] [address] Care Team Providers Care Investigative Analyst Name Role Phone Jose Luis Wong MD Primary Care Provider [phone] Allergies Active Allergy Reactions Criticality Noted Date Comments Sulfa Antibiotics Unknown - High Severity 03/19 I ABOUT Medications ubrogepant (UBRELVY) 100 MG tablet Take 1 tablet by mouth. Active Atogepant (Qulipta) 60 MG tablet Take 1 tablet by mouth. Active hyoscyamine (LEVSIN) 0.125 MG/ML solution Take by mouth 2 (Two) Times a Day. Active dicyclomine (BENTYL) 10 MG capsule Take 1 capsule by mouth 2 (Two) Times a Day. Active estradiol (ESTRACE) 2 MG tablet Take 2 mg by mouth Daily. Active propranolol (INDERAL) 60 MG tablet Take 1 tablet by mouth 3 (Three) Times a Day. Active aspirin 81 MG EC tablet Take 1 tablet by mouth Daily. Active atorvastatin (LIPITOR) 10 MG tablet Take 1 tablet by mouth Daily. Active venlafaxine (EFFEXOR) 37.5 MG tablet Take 1 tablet by mouth 2 (Two) Times a Day. Active clonazePAM (KlonoPIN) 0.5 MG tablet Take 1 tablet by mouth 2 (Two) Times a Day As Needed. Active tiZANidine (ZANAFLEX) 4 MG tablet Take 1 tablet by mouth At Night As Needed for Muscle Spasms. Active sucralfate (CARAFATE) 1 g tablet Take 1 tablet by mouth 4 (Four) Times a Day. 30 tablet 03/19/2022 Active ondansetron (ZOFRAN) 4 MG tablet 03/21/2022 Active indomethacin (INDOCIN) 25 MG capsule Take 1 capsule by mouth 3 (Three) Times a Day As Needed (headache). 15 capsule 01/22/2023 Active omeprazole (priLOSEC) 40 MG capsule 01/10/2023 Active topiramate (TOPAMAX) 100 MG tablet 11/28/2022 Active Active Problems No known active problems Family History Medical History Relation Name Comments Diabetes Brother Hypertension Brother Asthma Father Arthritis Mother Diabetes Mother Hypertension Mother Relation Name Status Comments Brother Father Mother Social History Tobacco Use Types Packs/Day Years Used Date Smoking Tobacco: Former Smokeless Tobacco: Never Tobacco Cessation:Counseling Given: Not Answered Alcohol Use Standard Drinks/Week Comments Never 0 (1 standard drink = 0.6 oz pur e alcohol) Abuse Screen Answer Date Recorded Unsafe at Home or Work/School Not on file Feels Threatened by Someone? Not on file 01/2024 Does Anyone Keep You from Co ntacting Others or Doint Things Outside the Home? Not on file 01/24/2024 Physical Sign of Abuse Present Not on file 0 01/24/2024 Housing Stability Answer Date Recorded Current Living Arrangements Not on file 06/2023 Potentially Unsafe Housing Conditions Not on olga e 07/30/2023 Family and Community Support Answer Davonte e Recorded Help with Day-to-Day Activities Not on file 07/30/2023 Lonely or Isolated Not on file 07/30/2023 Employment Answer Date Recorded Do you want help finding or keeping work or a claudine b? Not on file 07/30/2023 Disabilities Answer Date Recorded Concentrating, Remembering, or Making Decisions Difficulty Not on file 07/30/2023 Doing Errands Independently Difficulty Not on fi le 07/30/2023 Education Answer Date Recorded Help with school or training? Not on file Preferred Language Not on file 07/30/2023 Comments No Sex and Gender Information Value Date Recorded Sex Assigned at Not on file Legal Sex Female 11:07 AM EDT Gender Identity Not on file Sexual Orientation Not on file Last Filed Vital Signs Vital Sign Reading Time Taken Comments Blood Pressure 108/70 02/21/2023 11:57 AM EDT Pulse 75 02/21/2023 11:57 AM EDT Temperature 36.1 C (96.9 F) 02/21/2023 11:57 AM EDT Respiratory Rate 20 01/22/2023 12:25 PM EDT Oxygen Saturation 97% 02/21/2023 11:57 AM EDT Inhaled Oxygen Concentration - - Weight 92.2 kg (203 lb 3.2 oz) 02/21/2023 11:57 AM EDT Height 167.6 cm (5' 6 ) 02/21/2023 11:57 AM EDT Body Mass Index 32.8 02/21/2023 11:57 AM EDT Plan of Treatment Health Maintenance Due Date Last Done Comments Annual Gynecologic Pelvic and Breast Exam 1969 TDAP/TD VACCINES (1 - Tdap) 1988 MAMMOGRAM 2009 COLOGUARD 2014 COLON CANCER SCREENING 5 YEA R SIGMOIDOSCOPY 2014 COLONOSCOPY [address] CANCER SCREENING [address] COLONOGRAPHY 2014 FECAL OCCULT BLOOD TEST 2014 FIT Testing (1 year) 2014 Pneumococcal Vaccine 50+ (1 of 1 - PCV) 2019 ZOSTER VACCINE (1 of 2) 2019 ANNUAL PHYSICAL 03/22/2022 HEPATITIS C SCREENING 03/22/2022 COVID-19 Vaccine (3 - 2023- season) 06/22/202407/2021, 03/10/2021 INFLUENZA VACCINE 07/22/2025 Insurance PPO [facility] [employer] PPO Care Teams Investigative Analyst Relationship Specialty Start Date End Date Jose Luis Wong MD [address] ATTN: [place] [address] PCP - General Emergency Medicine 03/14/22
--- OUTSIDE RECORDS SUMMARY | 2025-06-24 09:05 | XMS_ITS | Clinical Summary ---
Author Organization [facility] Address [address] [place] [address] Care Team Providers Care Senior Technical Analyst Name Role Phone Mikaela Pearce Primary Care Provider [phone] Social History Tobacco Use Types Packs/Day Years Used Date Smoking Tobacco: Never Assessed Comments Unknown Sex and Gender Information Value Date Recorded Sex Assigned at Not on file Legal Sex Female 8:50 PM EDT Gender Identity Not on file Sexual Orientation Not on file Plan of Treatment Health Maintenance Due Date Last Done Comments [facility]-Depression Screening 1969 [facility]-/Child/Adol SDOH Screenings 1969 [facility]- SDOH Screenings 1987 [facility]-Adult SDOH Screenings 1987 [facility]-DTaP,Tdap,and Td Vaccine s (1 - Tdap) 1988 [facility]-Hepatitis B Vaccines (1 of 3 - 19+ 3-dose series) 1988 [facility]-Pap Smear 1990 [facility]-Cervical Cancer Screening 1999 [facility]-HPV/Cotest 1999 CT Colonography 2014 Colonoscopy 2014 FIT-DNA 2014 FIT 2014 FOBT 2014 Sigmoidoscopy 2014 [facility]-Colorectal Cancer Screening 2014 [facility]-Pneumococcal Vaccine: 50 + Years (1 of 1 - PCV) 2019 [facility]-Zoster Vaccines (1 of 2) 2019 [id number] Vaccine (3 - 2023- season) 2024 03/31/2021, 03/10/2021 [facility]-Influenza Vaccine (#1) 2025 HPV Vaccines Aged Out No longer eligi ble based on patient's age to complete this topic [facility]-HIB Vaccines Aged Out No longer e ligible based on patient's age to complete this topic [facility]-Hepatitis A Vaccines Aged Out No longer eligible based on patient's age to complete this topic [facility]-IPV Vaccines Aged Out No longer e ligible based on patient's age to complete this topic [facility]-Rotavirus Vaccines Aged Out No lo nger eligible based on patient's age to complete this topic Insurance ANTHEM Care Teams Senior Technical Analyst Relationship Specialty Start Date End Date Mikaela Pearce PA [address] [place] [address] PCP - General 03/04/21
--- NOTE | 2025-06-24 09:08 | CT_ITS ---
FINAL REPORT TECHNIQUE: thin section axial CT with and without IV contrast supplemented with multiplanar 3-D reconstruction of the head. This study was performed with techniques to keep radiation doses as low as reasonably achievable, (ALARA)individualized dose reduction techniques using automated exposure control or adjustment of mA and/or kV according to the patient's size were employed. CLINICAL HISTORY: posterior COLE, prev venous thrombosis, rep aneurysm FINDINGS: The cranial circulation is unremarkable. There is no significant stenosis, aneurysm or occlusion. IMPRESSION: No evidence of aneurysm or occlusion. Reviewed, Interpreted and Dictated by Daniel Sorto MD Transcribed by Lisa Shepherd Authenticated and [facility]
--- NOTE | 2025-06-24 09:08 | CT_ITS ---
FINAL REPORT TECHNIQUE: NASCET technique utilized for stenosis evaluation. This study was performed with techniques to keep radiation doses as low as reasonably achievable, (ALARA). Individualized dose reduction techniques using automated exposure control or adjustment of mA and/or kV according to the patient's size were employed. CLINICAL HISTORY: posterior COLE, prev venous thrombosis, rep aneurysm FINDINGS: RIGHT CAROTID: No significant stenosis is seen of the cervical common or internal carotid artery. LEFT CAROTID: No significant stenosis seen of the cervical common or internal carotid artery. VERTEBRALS: The left vertebral artery is patent. No significant stenosis is present. IMPRESSION: No significant arterial abnormality. Reviewed, Interpreted and Dictated by Daniel Sorto MD Transcribed by Lisa Shepherd Authenticated and [facility]
--- NOTE | 2025-06-24 09:08 | CT_ITS ---
FINAL REPORT TECHNIQUE: Axial CT images were performed through the head. Coronal reformatted images were submitted. This study was performed with techniques to keep radiation doses as low as reasonably achievable (ALARA). Individualized dose reduction techniques using automated exposure control or adjustment of mA and/or kV according to the patient's size were employed. CLINICAL HISTORY: posterior COLE, prev venous thrombosis, rep aneurysm FINDINGS: The ventricles are normal in size. There is no evidence of hemorrhage. There is no mass or edema identified. There is no abnormal extra-axial fluid seen. The sinuses are well aerated. IMPRESSION: No acute intracranial process. Reviewed, Interpreted and Dictated by Daniel Sorto MD Transcribed by Lisa Shepherd Authenticated and . [facility]
--- NOTE | 2025-06-24 09:11 | HMH.EDGENADL ---
Discharge Plan Disposition Patient Disposition: Home, Self-Care Prescriptions Prescriptions: No Action sucralfate [Carafate] 1 gram tablet 1 g PO BID lubiprostone 24 mcg capsule PO estradiol 0.1 mg/24 hr patch weekly 1 patch transdermal WEEKLY Qty: 12 3RF tizanidine 4 mg tablet 4 mg PO BID PRN (Reason: muscle spasticity) Qty: 180 2RF aspirin [Adult Low Dose Aspirin] 81 mg tablet,delayed release (DR/EC) 81 mg PO DAILY Qty: 90 0RF topiramate 100 mg tablet 100 mg PO HS Qty: 90 2RF venlafaxine 37.5 mg capsule,extended release 24hr 37.5 mg PO DAILY Qty: 90 1RF propranolol 60 mg capsule,extended release 24 hr See Rx Instructions .ROUTE .COMPLEX Qty: 90 3RF Dose Instruction: TAKE 1 CAPSULE BY MOUTH DAILY FOR HIGH BLOOD PRESSURE Rx Instructions: TAKE 1 CAPSULE BY MOUTH DAILY FOR HIGH BLOOD PRESSURE omeprazole 40 mg capsule,delayed release(DR/EC) See Rx Instructions .ROUTE .COMPLEX Qty: 60 1RF Dose Instruction: TAKE 1 CAPSULE BY MOUTH TWICE A DAY Rx Instructions: TAKE 1 CAPSULE BY MOUTH TWICE A DAY atorvastatin 10 mg tablet See Rx Instructions .ROUTE .COMPLEX Qty: 90 1RF Dose Instruction: TAKE 1 TABLET BY MOUTH DAILY FOR CHOLESTEROL Rx Instructions: TAKE 1 TABLET BY MOUTH DAILY FOR CHOLESTEROL Zepbound 5 mg/0.5 mL pen injector 5 mg SQ WEEKLY 90 Days Qty: 6.5 1RF promethazine 25 mg tablet 25 mg PO TID PRN (Reason: nausea and vomiting) Qty: 30 1RF clonazepam [Klonopin] 0.5 mg tablet 0.5 mg PO HS Qty: 30 1RF Referrals Follow up/Referrals: Anastacio Piña MD [Primary Care Provider, Internal Medicine] - See instructions Activity Restrictions/Add. Instructions Additional Instructions/Restrictions: At this time it was felt you are safe to be discharged home. If new or worsening symptoms please do not hesitate to return the emergency department. Please continue to follow-up with your neurologist as discussed. Clinical Impressions Clinical Impression: Headache Print Language Print Language: Sami Discharge ED Provider: Julio Toth General Adult HPI General Chief complaint: Headache Stated complaint: Headache, neck pain, dizziness X 2 weeks Time Seen by Provider: 06/24/25 08:56 Mode of Arrival: Ambulatory Source of Information: Patient Description of Symptoms (Recalled from ER Triage Doc. by RN): Patient presents to ED for headache, dizziness, confusion, and neck stiffness. Reports this has been going on for several weeks, scheduled to see neurology on 07/09 but symptoms got worse. No fevers. 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 She was initially on anticoagulation which was discontinued after the clot resolved. She has a holocranial headache worse in the back of her head onset subacute approximately 2 weeks ago. She intermittently has blurry vision but does not have any acute blurry vision at this time and no significant precipitating factors. No trauma. She has not fallen however states she does have difficulty walking over the last 2 weeks and is clumsy running into things headache extends down into her neck which feels stiff to her. No other acute complaints at this time. Please note that above description of symptoms, in this electronic medical record under categorization of recalled from ER triage doctor by RN are reflective of an initial nursing assessment, however, is not reflective of my full history and physical exam that was personally taken and clarified. Consequentially, this preceding description of symptoms, which may include the patient's categorized chief complaint in the EMR, do not reflect my personal clinical impression, and the ultimate description of history of present illness and patient stated complaints should be deferred to this section of the note. Unless stated otherwise or congruent with this section of the note, additional signs, symptoms, or incongruence should be interpreted as inaccurate with my clinical impression. Related Data Home Medications ?Medication ?Instructions ?Recorded ?Confirmed sucralfate 1 gram tablet (Carafate) 1 g PO BID 02/05/24 06/16/25 lubiprostone 24 mcg capsule mcg PO 04/13/25 06/16/25 Previous Rx's ?Medication ?Instructions ?Recorded aspirin 81 mg tablet,delayed 81 mg PO DAILY heart health #90 09/30/21 release (Adult Low Dose Aspirin) tabs topiramate 100 mg tablet 100 mg PO HS migraines #90 tabs 11/28/24 venlafaxine 37.5 mg 37.5 mg PO DAILY #90 caps 01/08/25 capsule,extended release 24 hr tizanidine 4 mg tablet 4 mg PO BID PRN muscle spasticity 01/20/25 #180 tabs propranolol 60 mg capsule,24 See Rx Instructions .Route 02/12/25 hr,extended release .COMPLEX #90 caps omeprazole 40 mg capsule,delayed See Rx Instructions .Route 02/23/25 release .COMPLEX #60 caps atorvastatin 10 mg tablet See Rx Instructions .Route 03/17/25 .COMPLEX #90 tabs estradiol 0.1 mg/24 hr weekly 1 patch transdermal WEEKLY #12 ea 04/13/25 transdermal patch Zepbound 5 mg/0.5 mL subcutaneous 5 mg (0.5 mL) SQ WEEKLY 90 days 05/13/25 pen injector (tirzepatide (weight #6.5 mL loss)) promethazine 25 mg tablet 25 mg PO TID PRN nausea and 05/22/25 vomiting #30 tabs clonazepam 0.5 mg tablet (Klonopin) 0.5 mg PO HS #30 tabs 06/15/25 Allergies Allergy/AdvReac Type Severity Reaction Status Date / Time Sulfa (Sulfonamide Allergy Severe stopped Verified 06/16/25 12:41 Antibiotics) breathing, throat swells PFSH [facility] Disclaimer: The information contained in this section may have been updated after the patient was seen, as this information can be updated by other users. Medical History Decreased libido Menopausal symptoms Postmenopausal atrophic vaginitis Hypertension Cerebral aneurysm Anxiety and depression Insomnia Bronchitis Acid reflux Hyperlipidemia Essential (primary) hypertension Chest pain, precordial Abdominal pain Surgical History History of colonoscopy H/O shoulder surgery H/O right knee surgery H/O oophorectomy History of hysterectomy H/O: hysterectomy Family History Mother Diabetes Hypertension Brother Diabetes Hypertension Sister Hypertension Social History Smoking Status: Never smoker years smoked: 13 smoking status stop date: 1998 alcohol intake: never substance use type: denies use current occupational status: employed Travel in the last 8 weeks?: None household members: spouse housing: house marital status: 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 caffeine: Yes Have you lived/traveled outside [place] in past 30 days?: No Contact w/someone who lives/traveled outside US past 30 days?: No Exposure to someone with infectious disease in past 14 days?: No Do you have a fever (greater than 100.4 F or 38 C)?: No Have you tested positive for COVID-19?: No Exposed to someone with COVID-19 in past 14 days?: No Do you have a sore throat?: No Do you have a cough?: No Do you have any weakness?: No Do you have any diarrhea?: No Are you experiencing any unusual bleeding?: No Do you have any muscle aches/pain?: No Do you have any abdominal pain?: No Are you experiencing loss of taste or smell?: No Other Medical History Have you received the Flu Vaccine for this season: No Have you received the Pneumonia Vaccine: No ROS Obtained: Yes Systems reviewed as appropriate & no additional complaints except as documented Physical Exam General General appearance: alert and in no apparent distress Head Head exam: atraumatic and normocephalic Eye Eye exam: Present PERRL and EOMI ENT ENT exam: Present mucous membranes moist Neck Neck exam: Present normal inspection and other (Spontaneously ranging her neck throughout the interview) Chest Chest inspection: Present normal inspection and symmetric chest wall rise Respiratory Respiratory exam: Present normal lung sounds bilaterally; Absent respiratory distress Cardiovascular Cardiovascular exam: Present regular rate and normal rhythm Abdominal Exam Abdominal exam: Present soft Extremities Exam Extremities exam: Present normal inspection Neurological Exam Neurological exam: Present alert, oriented X3 and CN II-XII intact; Absent motor sensory deficit Psychiatric Psychiatric exam: Present normal affect Skin Skin exam: Present warm and dry Medical Decision Making Medical Records Screening: Per USPSTF and CDC recommendations, given the prevalence of disease in our region, it is our hospital?s policy to screen for HIV and viral Hepatitis for all patients aged 18 and over and those with ongoing risk factors. Bandar Inquiry Pt receiving controlled substance: No Vital Signs: 06/24/25 08:54 06/24/25 08:56 06/24/25 08:56 Temperature 98.2 F 98.2 F Temperature Source Oral Oral Pulse Rate 76 80 Pulse Rate [Right] 80 Respiratory Rate 18 18 Blood Pressure 140/95 H 140/95 H Blood Pressure [Right Arm] 140/95 H Blood Pressure Mean Blood Pressure Mean [Right Arm] 110 02 Sat by Pulse Oximetry 100 99 99 Oxygen Delivery Method Room Air 06/24/25 09:00 06/24/25 09:04 06/24/25 09:30 Temperature Temperature Source Pulse Rate 73 76 70 Pulse Rate [Right] Respiratory Rate 16 Blood Pressure 144/93 H 144/93 H 141/93 H Blood Pressure [Right Arm] Blood Pressure Mean Blood Pressure Mean [Right Arm] 02 Sat by Pulse Oximetry 100 100 100 Oxygen Delivery Method 06/24/25 10:00 06/24/25 10:15 06/24/25 10:30 Temperature Temperature Source Pulse Rate 71 72 68 Pulse Rate [Right] Respiratory Rate Blood Pressure 155/85 H 133/84 Blood Pressure [Right Arm] Blood Pressure Mean Blood Pressure Mean [Right Arm] 02 Sat by Pulse Oximetry 100 100 100 Oxygen Delivery Method 06/24/25 10:30 06/24/25 11:01 06/24/25 11:30 Temperature Temperature Source Pulse Rate 74 82 Pulse Rate [Right] Respiratory Rate Blood Pressure 133/84 128/66 125/75 Blood Pressure [Right Arm] Blood Pressure Mean 100 Blood Pressure Mean [Right Arm] 02 Sat by Pulse Oximetry 100 99 Oxygen Delivery Method 06/24/25 12:00 Temperature Temperature Source Pulse Rate 74 Pulse Rate [Right] Respiratory Rate Blood Pressure 115/76 Blood Pressure [Right Arm] Blood Pressure Mean Blood Pressure Mean [Right Arm] 02 Sat by Pulse Oximetry 100 Oxygen Delivery Method Lab Data Lab Results 06/24/25 09:03: WBC 10.3, RBC 4.58, Hgb 13.6, Hct 38.9, MCV 84.9, MCH 29.7, MCHC 35.0, RDW 13.5, Plt Count 251, MPV 11.3 H, Neut % (Auto) 52.0, Lymph % (Auto) 39.0, Wilkes % (Auto) 6.0, Eos % (Auto) 2.0, Baso % (Auto) 0.7, Neut # (Auto) 5.3, Lymph # (Auto) 4.0, Wilkes # (Auto) 0.6, Eos # (Auto) 0.2, Baso # (Auto) 0.1, Sodium 141, Potassium 3.6, Chloride 110 H, Carbon Dioxide 22, Anion Gap 12.6, BUN 5 L, Creatinine 0.80, Estimated Creat Clear 91, Estimated GFR 74, Est GFR ( Amer) 90, Glucose 85, Calcium 9.2, Total Bilirubin 0.6, AST 41 H, ALT 27, Alkaline Phosphatase 30 L, Total Protein 8.0, Albumin 4.4, Globulin 3.6 H, Albumin/Globulin Ratio 1.2 06/24/25 09:03 06/24/25 09:03 Orders (Tests/Meds): ED MEDICATIONS Discontinued Medications Generic Name Dose Route Start Last Admin Trade Name Freq PRN Reason Stop Dose Admin Acetaminophen 1,000 mg 06/24/25 09:30 06/24/25 09:42 Acetaminophen 1,000mg/100ml Vial IV 06/24/25 09:31 1,000 mg ONCE ONE Administration Iopamidol 80 ml 06/24/25 09:50 06/24/25 09:52 Iopamidol-370 (76%);100ml Bottle IV 06/24/25 09:51 80 ml ONCE ONE Administration Ondansetron HCl 4 mg 06/24/25 09:30 06/24/25 09:41 Ondansetron 4mg/2ml Vial IV 06/24/25 09:31 4 mg ONCE ONE Administration Sodium Chloride 10 ml 06/24/25 09:50 06/24/25 09:52 Sodium Chloride 0.9% 10ml Syr (Rad Only) IV 06/24/25 09:51 10 ml ONCE ONE Administration Sodium Chloride 50 ml 06/24/25 09:50 06/24/25 09:52 0.9 % Sodium Chloride 50 Ml Vial IV 06/24/25 09:51 50 ml ONCE ONE Administration ORDERS Category Date Time Status CT Venogram head Stat Cat Scan 06/24/25 09:[address] angio head Stat Cat Scan 06/24/25 09:[address] angio neck Stat Cat Scan 06/24/25 09:[address] head/brain wo con Stat Cat Scan 06/24/25 09:08 Completed CBC w/Auto Diff [Complete Blood Count Auto Diff] Stat Lab 06/24/25 09:03 Completed CMP [Comprehensive Metabolic Panel] Stat Lab 06/24/25 09:03 Completed ECG Data Tracing #1: Independently interpreted by me rate is 74, rhythm is regular, axis is normal, no ST elevation in anatomical contiguous leads, QTc 465. Medical Decision Narrative: In summary patient is a 54-year-old female past medical history of scrota above who presents emergency department for evaluation of headache and disequilibrium in the setting of previous venous anastomosis requiring anticoagulation not on anticoagulation currently, reported cerebral aneurysm. Patient is hemodynamically stable nontoxic-appearing arrival, afebrile with nonfocal neurologic exam, I did not assess gait and initial exam. Differential clues CVA, venous sinus thrombosis, among others. Will be conducted with hematologic labs noncontrasted CT scan head CT venogram head CT angio head and neck. Initial inventions include IV Tylenol. Initial hematologic labs reviewed by me no significant leukocytosis no transfusable anemia no thrombocytopenia no MICAH or critical electrolyte abnormality. Noncontrasted CT scan of the head informally visualized by me, no acute large intra-axial hemorrhage or midline shift. CT imaging reads reviewed by me no venous sinus thrombosis, noncontrasted CT scan of the head no acute intracranial abnormality, no significant arterial abnormality in the head or neck. Upon repeat evaluation patient was resting in bed and had acceptable resolution of her pain no meningismus and given the course and duration I have no concern for bacterial meningitis and patient is not immunocompromise and is comfortable going home will continue to follow-up with a neurologist on an outpatient basis was given multiple return precautions verbalized understanding. Critical Care Critical Care Time Critical Care Time: No
--- NOTE | 2025-06-24 09:15 | CT_ITS ---
FINAL REPORT TECHNIQUE: After the administration of IV contrast, axial images through the head was performed by computed tomography. Reconstructed images were obtained and reviewed. This study was performed with techniques to keep radiation doses as low as reasonably achievable, (ALARA). Individualized dose reduction techniques using automated exposure control or adjustment of mA and/or kV according to the patient's size were employed. CLINICAL HISTORY: prev thrombosis, severe COLE FINDINGS: There is opacification of the superior sagittal sinus. No filling defects are identified. The transverse sinuses are intact. There is no abnormally enhancing intracranial lesion. IMPRESSION: No convincing evidence of dural venous thrombosis. Reviewed, Interpreted and Dictated by Daniel Sorto MD Transcribed by Lisa Shepherd Authenticated and . [facility]
[2025-06-24 09:20] LABS: Hematocrit 38.9 % (37.0-47.0); Hemoglobin 13.6 g/dL (12.2-16.2); Immature Granulocytes % 0.3 %; Mean Corpuscular HGB Conc 35.0 g/dL (31.8-35.4); Mean Corpuscular Hemoglobin 29.7 pg (27.0-31.2); Mean Corpuscular Volume 84.9 fl (81-99); Nucleated Red Blood Cells % 0 %; Platelet Count 251 K/mm3 (142-424); Red Blood Count 4.58 M/mm3 (4.20-5.40); Red Cell Distribution Width-SD 41.6 fL; White Blood Count 10.3 K/mm3 (4.8-10.8)
[2025-06-24 09:32] LABS: Alanine Aminotransferase 27 U/L (12-78); Albumin Level 4.4 g/dl (3.5-5.0); Albumin/Globulin Ratio 1.2 (1.1-1.8); Alkaline Phosphatase 30 U/L (38-126); Anion Gap 12.6 mEq/L (5-15); Aspartate Amino Transferase 41 U/L (14-36); Bilirubin,Total 0.6 mg/dl (0.2-1.3); Blood Urea Nitrogen 5 mg/dl (7-17); Calcium 9.2 mg/dl (8.4-10.2); Carbon Dioxide 22 mmol/L (22.0-30.0); Chloride 110 mmol/L (98-107); Creatinine Clearance Estimated 91 mL/min (50-200); Creatinine,Serum 0.80 mg/dl (0.52-1.04); Estimated Glomerular Filt Rate 74 ml/min (>60); GFR (African American) 90 ML/MIN (>60); Globulin 3.6 g/dL (1.3-3.2); Glucose 85 mg/dl (74-100); Potassium 3.6 mmoL/L (3.5-5.1); Sodium 141 mmol/L (136-145); Total Protein,Serum 8.0 g/dl (6.3-8.2)
[2025-06-24] MEDS: ONDANSETRON 4MG/2ML VIAL 4 MG IV (09:41)
[2025-06-24] MEDS: ACETAMINOPHEN 1,000MG/100ML VIAL 1000 MG IV (09:42)
[2025-06-24] MEDS: IOPAMIDOL-370 (76%);100ML BOTTLE 80 ML IV (09:52)
[2025-06-24] MEDS: 0.9 % SODIUM CHLORIDE 50 ML VIAL IV (09:52)
[2025-06-24] MEDS: SODIUM CHLORIDE 0.9% 10ML SYR (RAD ONLY) 10 ML IV (09:52)
== END 2025-06-24 13:01 | disposition home or self-care (01) ==
PROVIDERS: Emergency Provider Emergency Medicine; PCP Family Medicine
DX: R51.9 Headache, unspecified (principal); M54.2 Cervicalgia; R26.81 Unsteadiness on feet; I10 Essential (primary) hypertension; E78.5 Hyperlipidemia, unspecified; Z86.718 Personal history of other venous thrombosis and embolism
CPT/HCPCS: 70450; 70496; 70498; 80053; 85025; 93005; 96374; 96375; 99285; J0131; J2405; Q9967

== ENCOUNTER 2025-07-20 08:58 | Outpatient (CLI) | payer BC, SELFPAY ==
[2025-07-20 23:02] LABS: Hematocrit 41.3 % (37.0-47.0); Hemoglobin 13.2 g/dL (12.2-16.2); Immature Granulocytes % 0.2 %; Mean Corpuscular HGB Conc 32.0 g/dL (31.8-35.4); Mean Corpuscular Hemoglobin 28.6 pg (27.0-31.2); Mean Corpuscular Volume 89.6 fl (81-99); Nucleated Red Blood Cells % 0 %; Platelet Count 275 K/mm3 (142-424); Red Blood Count 4.61 M/mm3 (4.20-5.40); Red Cell Distribution Width-SD 46.0 fL; White Blood Count 12.3 K/mm3 (4.8-10.8)
[2025-07-20 23:16] LABS: Alanine Aminotransferase 18 U/L (12-78); Albumin Level 4.5 g/dl (3.5-5.0); Albumin/Globulin Ratio 1.5 (1.1-1.8); Alkaline Phosphatase 35 U/L (38-126); Anion Gap 15.8 mEq/L (5-15); Aspartate Amino Transferase 24 U/L (14-36); Bilirubin,Total 0.8 mg/dl (0.2-1.3); Blood Urea Nitrogen 4 mg/dl (7-17); Calcium 10.1 mg/dl (8.4-10.2); Carbon Dioxide 22 mmol/L (22.0-30.0); Chloride 105 mmol/L (98-107); Cholesterol 175 mg/dl (140-200); Creatinine,Serum 0.90 mg/dl (0.52-1.04); Estimated Glomerular Filt Rate 65 ml/min (>60); GFR (African American) 78 ML/MIN (>60); Globulin 3.0 g/dL (1.3-3.2); Glucose 76 mg/dl (74-100); HDL Cholesterol 50 mg/dl (40-60); Potassium 3.8 mmoL/L (3.5-5.1); Sodium 139 mmol/L (136-145); Total Protein,Serum 7.5 g/dl (6.3-8.2); Triglycerides 285 mg/dl (30-150)
[2025-07-20 23:47] LABS: Thyroid Stimulating Hormone 1.04 uIU/mL (0.465-4.68)
--- OUTSIDE RECORDS SUMMARY | 2025-07-21 10:07 | XMS_ITS | Clinical Summary ---
Author Organization Healthcare Address [address] [place] [address] Care Team Providers Care Drum Straightener Name Role Phone Mikaela Pearce Primary Care Provider [phone] Social History Tobacco Use Types Packs/Day Years [...] 2019 UKY-Zoster Vaccines (1 of 2) 2019 [id number] Vaccine (3 - season) 2025 03/31/2021, 03/10/2021 UKY-Influenza Vaccine (#1) 2025 HPV [...] complete this topic Insurance ANTHEM Care Teams Drum Straightener Relationship Specialty Start Date End Date Mikaela Pearce PA [address] [place] [address] PCP - General 03/04/21
--- OUTSIDE RECORDS SUMMARY | 2025-07-21 10:07 | XMS_ITS | Clinical Summary ---
Author Organization [facility] Address [address] [place] [address] Care Team Providers Care Geosciences Associate Professor Name Role Phone Jose Luis Wong MD Primary Care Provider [phone] Allergies Active Allergy Reactions Criticality Noted Date [...] 2009 COLOGUARD 2014 COLON CANCER SCREENING 5 YEAR SIGMOIDOSCOPY 2014 COLONOSCOPY [address] CANCER SCREENING [address] COLONOGRAPHY 2014 FECAL OCCULT BLOOD TEST 2014 FIT Testing (1 year) 2014 Pneumococcal Vaccine 50+ (1 of 1 - PCV) 2019 ZOSTER VACCINE (1 of 2) 2019 ANNUAL PHYSICAL 03/22/2022 HEPATITIS C SCREENING 03/22/2022 INFLUENZA VACCINE 05/22/[address] [place] [address] [place] [address] PPO Care Teams Geosciences Associate Professor Relationship Specialty Start Date End Date Jose Luis Wong MD [address] [facility] [address] ATTN: [place] [address] PCP - General Emergency Medicine 03/14/22
[2025-07-22 08:14] LABS: Hepatitis B Surface Antigen Negative (Negative)
== END 2025-07-20 23:59 | disposition home or self-care (01) ==
LOC: LAB.DROPOF 07-21 09:59
PROVIDERS: PCP Nurse Practitioner Family; Visit Provider Nurse Practitioner Family
DX: E78.5 Hyperlipidemia, unspecified (principal); E66.9 Obesity, unspecified; R53.83 Other fatigue; Z11.59 Encounter for screening for other viral diseases
CPT/HCPCS: 80053; 80061; 84443; 85025; 87340

== ENCOUNTER 2025-07-28 12:09 | Emergency (ER) | payer BC, SELFPAY ==
[2025-07-28] VITALS (12 sets, daily range): BP systolic 115–187; BP diastolic 77–109; PULSE 69–87; RESP 16–18; TEMP 36.4–36.7; O2SAT 96–100; BMI 27.6
--- NOTE | 2025-07-28 12:32 | CT_ITS ---
FINAL REPORT TECHNIQUE: Thin section axial images were obtained through the abdomen after intravenous contrast. Reconstruction images were obtained from the axial data. Exam was performed using dose reduction techniques. CLINICAL HISTORY: abd pain COMPARISON: 12/11/2023 FINDINGS: Exam is limited by motion. The lung bases are clear. The liver is homogeneous. The gallbladder is present. The spleen, adrenal glands, and pancreas are unremarkable. There is no hydronephrosis or solid renal mass. Abdominal GI tract is without acute abnormality. There is no abdominal lymphadenopathy or ascites. The appendix is normal. There is wall thickening of the descending colon, likely related to incomplete distention, mild colitis is not excluded. The uterus is absent. There is no pelvic lymphadenopathy or ascites. No acute osseous abnormalities identified. IMPRESSION: Wall thickening of the descending colon, likely related to incomplete distention but mild colitis is not excluded. Reviewed, Interpreted and Dictated by Asiya Davey MD Transcribed by Lisa Shepherd Authenticated and [facility]
--- OUTSIDE RECORDS SUMMARY | 2025-07-28 12:35 | XMS_ITS | Clinical Summary ---
Author Organization [facility] Address [address] [place] [address] Care Team Providers Care Retail Greeting Card Merchandiser Name Role Phone Jose Luis Wong MD Primary Care Provider [phone] Allergies Active Allergy Reactions Criticality Noted Date [...] SCREENING 03/22/2022 INFLUENZA VACCINE 05/22/[address] [place] [address] [place] [address] PPO Care Teams Retail Greeting Card Merchandiser Relationship Specialty Start Date End Date Jose Luis Wong MD [address] [facility] [address] ATTN: [place] [id number] PCP - General Emergency Medicine 03/14/22
--- OUTSIDE RECORDS SUMMARY | 2025-07-28 12:35 | XMS_ITS | Clinical Summary ---
Author Organization Healthcare Address [address] [place] [address] Care Team Providers Care Intelligence Applications Name Role Phone Mikaela Pearce Primary Care Provider [phone] Social History Tobacco Use Types Packs/Day Years [...] 2019 UKY-Zoster Vaccines (1 of 2) 2019 [id number] Vaccine (3 - season) 2025 03/31/2021, 03/10/2021 [...] complete this topic Insurance ANTHEM Care Teams Intelligence Applications Relationship Specialty Start Date End Date Mikaela Pearce PA [address] [place] [address] PCP - General 03/04/21
--- NOTE | 2025-07-28 12:39 | ED_ITS ---
<Statement entered by Onur Garcia DO - 07/30/25 00:27> I was consulted by the ANGELLA, and we discussed the complexity of problems being addressed. I approved the treatment and management plan for this patient's care in the emergency department, thus performing a substantive portion of the medical decision making. Onur Garcia DO Discharge Plan Disposition Chief Complaint: Nausea/Vomiting/Diarrhea Prescriptions Prescriptions: New fidaxomicin 200 mg tablet 200 mg PO BID 10 Days Qty: 20 0RF Rx Instructions: this is preferred med for cdiff if this med is approved and insurance pays for this then I want patient to take this and not take flagyl or vanc metronidazole 500 mg tablet 500 mg PO BID 10 Days Qty: 20 0RF Rx Instructions: patient to take FLAGYL as the LAST option if the fidaxomicin and vanc are NOT approved take FLAGYL vancomycin 250 mg capsule 250 mg PO QID 14 Days Qty: 56 0RF Rx Instructions: This is the 2nd preferred, if the fidaxomicin is NOT approved and the vanc IS approved please take VANC as the second option. No Action sucralfate [Carafate] 1 gram tablet 1 g PO BID lubiprostone 24 mcg capsule PO estradiol 0.1 mg/24 hr patch weekly 1 patch transdermal WEEKLY Qty: 12 3RF tizanidine 4 mg tablet 4 mg PO BID PRN (Reason: muscle spasticity) Qty: 180 2RF fluconazole 150 mg tablet 150 mg PO Q3D 0 Days Qty: 2 0RF Rx Instructions: may repeat second dose 72 hrs after first dose if symptoms persist aspirin [Adult Low Dose Aspirin] 81 mg tablet,delayed release (DR/EC) 81 mg PO DAILY Qty: 90 0RF metronidazole 500 mg tablet 500 mg PO BID 7 Days Qty: 14 0RF amoxicillin-pot clavulanate 875-125 mg tablet 1 tab PO BID 7 Days Qty: 14 0RF prednisone 10 mg tablet 10 mg PO DAILY Qty: 21 0RF Rx Instructions: Day 1- take 6 tabs, Day 2- take 5 tabs, Day 3- take 4 tabs, Day 4- take 3 tabs, Day 5- take 2 tabs, Day 6- take 1 tab fluconazole 150 mg tablet 150 mg PO Q3D 0 Days Qty: 2 0RF Rx Instructions: may repeat second dose 72 hrs after first dose if symptoms persist topiramate 100 mg tablet 100 mg PO HS Qty: 90 2RF venlafaxine 37.5 mg capsule,extended release 24hr 37.5 mg PO DAILY Qty: 90 1RF propranolol 60 mg capsule,extended release 24 hr See Rx Instructions .ROUTE .COMPLEX Qty: 90 3RF Dose Instruction: TAKE 1 CAPSULE BY MOUTH DAILY FOR HIGH BLOOD PRESSURE Rx Instructions: TAKE 1 CAPSULE BY MOUTH DAILY FOR HIGH BLOOD PRESSURE omeprazole 40 mg capsule,delayed release(DR/EC) See Rx Instructions .ROUTE .COMPLEX Qty: 60 1RF Dose Instruction: TAKE 1 CAPSULE BY MOUTH TWICE A DAY Rx Instructions: TAKE 1 CAPSULE BY MOUTH TWICE A DAY atorvastatin 10 mg tablet See Rx Instructions .ROUTE .COMPLEX Qty: 90 1RF Dose Instruction: TAKE 1 TABLET BY MOUTH DAILY FOR CHOLESTEROL Rx Instructions: TAKE 1 TABLET BY MOUTH DAILY FOR CHOLESTEROL Zepbound 5 mg/0.5 mL pen injector 5 mg SQ WEEKLY 90 Days Qty: 6.5 1RF promethazine 25 mg tablet 25 mg PO TID PRN (Reason: nausea and vomiting) Qty: 30 1RF clonazepam [Klonopin] 0.5 mg tablet 0.5 mg PO HS Qty: 30 1RF Referrals Follow up/Referrals: Anastacio Piña MD [Primary Care Provider, Internal Medicine] - See instructions Activity Restrictions/Add. Instructions Additional Instructions/Restrictions: Please take Fidaxomicin as first choice if it is approved by the insurance. VANC is the second choice if the Fidaxomicin is not approved If neither the Fidaxomicin or Vanc are not approved the Flagyl is the last choice. I only want you taking ONE of the three of these medications. Clinical Impressions Clinical Impression: C. difficile colitis Instructions Patient Instructions: DI for C difficile Antibiotic-associated Colitis, Clostridium difficile Infection Print Language Print Language: Swedish Discharge ED Provider: Onur Garcia General Adult HPI General Chief complaint: Nausea/Vomiting/Diarrhea Stated complaint: diarrhea, nausea, weakness Time Seen by Provider: 07/28/25 12:24 Mode of Arrival: Ambulatory Source of Information: Patient and Relative Description of Symptoms (Recalled from ER Triage Doc. by RN): patient presents to the ED after having severe nausea/vomiting/diarrhea since Sunday. She hasnt been around anyone with similar symptoms and cant keep anything down. no fever noticed at home. History of Present Illness HPI narrative: 55-year-old female presents to the ED after having nausea, vomiting and diarrhea since Sunday. She has not been around anyone was sick last. She has not been able to keep anything in her body because of the diarrhea every 30 minutes. She went to her PCP today and they told her to come to the emergency room for fluids. Related Data Home Medications ?Medication ?Instructions ?Recorded ?Confirmed sucralfate 1 gram tablet (Carafate) 1 g PO BID 4 07/28/25 lubiprostone 24 mcg capsule mcg PO 04/13/25 07/28/25 Previous Rx's ?Medication ?Instructions ?Recorded aspirin 81 mg tablet,delayed 81 mg PO DAILY heart heal th #90 09/30/21 release (Adult Low Dose Aspirin) tabs topiramate 100 mg tablet 100 mg PO HS migraines #90 t abs 11/28/24 venlafaxine 37.5 mg 37.5 mg PO DAILY #90 caps capsule,extended release 24 hr tizanidine 4 mg tablet 4 mg PO BID PRN muscle spast icity 01/20/25 #180 tabs propranolol 60 mg capsule,24 See Rx Instructions .Rout e 02/12/25 hr,extended release .COMPLEX #90 caps omeprazole 40 mg capsule,delayed See Rx Instructions . Route 02/23/25 release .COMPLEX #60 caps atorvastatin 10 mg tablet See Rx Instructions .Route 0 03/17/25 .COMPLEX #90 tabs estradiol 0.1 mg/24 hr weekly 1 patch transdermal WEEK LY #12 ea 04/13/25 transdermal patch Zepbound 5 mg/0.5 mL subcutaneous 5 mg (0.5 mL) SQ WEE KLY 90 days 05/13/25 pen injector (tirzepatide (weight #6.5 mL loss)) promethazine 25 mg tablet 25 mg PO TID PRN nausea and 05/22/25 vomiting #30 tabs clonazepam 0.5 mg tablet (Klonopin) 0.5 mg PO HS #30 t abs 06/15/25 fluconazole 150 mg tablet 150 mg PO Q3D 2 doses #2 tab s 07/14/25 amoxicillin 875 mg-potassium 1 tab PO BID 7 days #14 t abs 07/28/25 clavulanate 125 mg tablet fidaxomicin 200 mg tablet 200 mg PO BID 10 days #20 ta bs 07/28/25 fluconazole 150 mg tablet 150 mg PO Q3D 2 doses #2 tab s 07/28/25 metronidazole 500 mg tablet 500 mg PO BID 10 days #20 tabs 07/28/25 metronidazole 500 mg tablet 500 mg PO BID 7 days #14 t abs 07/28/25 prednisone 10 mg tablet 10 mg PO DAILY #21 tabs 05/15 vancomycin 250 mg capsule 250 mg PO QID 14 days #56 ca ps 07/28/25 Allergies Allergy/AdvReac Type Severity Reaction Status Date / Time Sulfa (Sulfonamide Allergy Severe stopped Verified 07/28/25 08:46 Antibiotics) breathing, throat swells PFSH PFS Disclaimer: The information contained in this section may have been updated after the patient was seen, as this information can be updated by other users. Medical History Decreased libido Menopausal symptoms Postmenopausal atrophic vaginitis Hypertension Cerebral aneurysm Anxiety and depression Insomnia Bronchitis Acid reflux Hyperlipidemia Essential (primary) hypertension Chest pain, precordial Abdominal pain Surgical History History of colonoscopy H/O shoulder surgery H/O right knee surgery H/O oophorectomy History of hysterectomy H/O: hysterectomy Family History Mother Diabetes Hypertension Brother Diabetes Hypertension Sister Hypertension Social History Smoking Status: Never smoker years smoked: 13 smoking status stop date: 1998 alcohol intake: never substance use type: denies use current occupational status: employed Travel in the last 8 weeks?: None household members: spouse housing: house marital status: 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 caffeine: Yes Other Medical History Have you received the Flu Vaccine for this season: No Have you received the Pneumonia Vaccine: No ROS Obtained: Yes Systems reviewed as appropriate & no additional complaints except as documented Constitutional Constitutional: Reports as per HPI Physical Exam General General appearance: alert and in no apparent distress Head Head exam: normocephalic Eye Eye exam: Present PERRL and EOMI ENT ENT exam: Present normal oropharynx and mucous membranes moist Neck Neck exam: Present full ROM and trachea midline Respiratory Respiratory exam: Present normal lung sounds bilaterally Cardiovascular Cardiovascular exam: Present regular rate, normal rhythm, normal heart sounds, +S1 and +S2 Abdominal Exam Abdominal exam: Present soft and normal bowel sounds Abdominal tenderness: Present diffuse and mild Extremities Exam Extremities exam: Present normal inspection, full ROM and normal capillary refill Neurological Exam Neurological exam: Present alert, oriented X3 and normal gait Skin Skin exam: Present warm, dry and intact Medical Decision Making Medical Records Screening: Per USPSTF and CDC recommendations, given the prevalence of disease in our region, it is our hospital?s policy to screen for HIV and viral Hepatitis for all patients aged 18 and over and those with ongoing risk factors. Bandar Inquiry Pt receiving controlled substance: No Bandar was queried for this patient: No Vital Signs: 07/28/25 12:14 07/28/25 12:30 07/28/25 13:00 Temperature 98.0 F Temperature Source Oral Pulse Rate 87 83 Pulse Rate [Right Radial] 84 Respiratory Rate 16 Blood Pressure 139/99 H 129/91 H Blood Pressure [Right Arm] 187/103 H Blood Pressure Mean [Right Arm] 131 Blood Pressure Source [Right Arm] Automatic Cuff Blood Pressure Position [Right Arm] Sitting 02 Sat by Pulse Oximetry 100 99 96 Oxygen Delivery Method Room Air 07/28/25 13:15 07/28/25 13:31 07/28/25 14:01 Temperature Temperature Source Pulse Rate 84 81 78 Pulse Rate [Right Radial] Respiratory Rate Blood Pressure 144/109 H 143/93 H 135/88 Blood Pressure [Right Arm] Blood Pressure Mean [Right Arm] Blood Pressure Source [Right Arm] Blood Pressure Position [Right Arm] 02 Sat by Pulse Oximetry 99 100 100 Oxygen Delivery Method 07/28/25 14:42 07/28/25 15:00 Temperature Temperature Source Pulse Rate 80 69 Pulse Rate [Right Radial] Respiratory Rate Blood Pressure 145/93 H 124/80 Blood Pressure [Right Arm] Blood Pressure Mean [Right Arm] Blood Pressure Source [Right Arm] Blood Pressure Position [Right Arm] 02 Sat by Pulse Oximetry 100 100 Oxygen Delivery Method Lab Data Lab Results 07/28/25 12:25: WBC 13.0 H, RBC 4.77, Hgb 14.0, Hct 40.4, MCV 84.7, MCH 29.4, MCHC 34.7, RDW 13.1, Plt Count 294, MPV 11.0 H, Neut % (Auto) 66.7, Lymph % (Auto) 25.1, [place] % (Auto) 6.2, Eos % (Auto) 1.1, Baso % (Auto) 0.4, Neut # (Auto) 8.7 H, Lymph # (Auto) 3.3, [place] # (Auto) 0.8, Eos # (Auto) 0.1, Baso # (Auto) 0.1, Sodium 143, Potassium 3.3 L, Chloride 107, Carbon Dioxide 20 L, A nion Gap 19.3 H, BUN 3 L, Creatinine 0.80, Estimated Creat Clear 93, Estimated GFR 74, Est GFR ( Amer) 90, Glucose 105 H, Calcium 9.8, Magnesium 2.0, Total Bilirubin 1.0, AST 30, ALT 21, Alkaline Phosphatase 47, Total Protein 8.2, Albumin 4.7, Globulin 3.5 H, Albumin/Globulin Ratio 1.3, Lipase 115 07/28/25 12:43: SARS-CoV-2 (PCR) Not detected, Influenza A Untype (PCR) Not detected, Influenza Type B (PCR) Not detected 07/28/25 13:06: Stl C. cayetanensis PCR Not detected, Stool Rotavirus (PCR) Not detected, Stl Adenov F 40/41 PCR Not detected, Stool Astrovirus (PCR) Not detected, Stool Campylobacter PCR Not detected, Stl C.difficile Tox PCR Detected A, Stool Cryptosporidium PCR Not detected, Stl E.coli Shiga Tox PCR Not detected, Stool E coli O157 PCR Not detected, Stl Enterotoxigenic E PCR Not detected, Stool EPEC (PCR) Not detected, Stool EAEC (PCR) Not detected, Stl E. histolytica PCR Not detected, Stool Giardia Lamblia PCR Not detected, Stool Salmonella PCR Not detected, Stool Sapovirus (PCR) Not detected, Stl P. shigelloides PCR Not detected, Stl Shigella/EIEC PCR Not detected, St Y.enterocolitica PCR Not detected, Stool Vibrio (PCR) Not detected, Stl Vibrio cholerae PCR Not detected, Stl Norovirus GI/GII PCR Detected A 07/28/25 13:10: Urine Color Yellow, Urine Appearance Clear, Urine pH 6.0, Ur Specific [place] 1.005, Urine Protein Negative, Urine Glucose (UA) Negative, Urine Ketones Negative, Urine Blood Negative, Urine Nitrate Negative, Urine Bilirubin Negative, Urine Urobilinogen 0.2, Ur Leukocyte Esterase Negative, Urine RBC None, Urine WBC None, Ur Squamous Epith Cells 3-5, Urine Bacteria None 07/28/25 12:25 07/28/25 12:25 Orders (Tests/Meds): ED MEDICATIONS Generic Name Dose Route Start Last Admin Trade Name Niurka PRN Reason Stop Dose Admin Sodium Chloride 8 ml 07/28/25 12:32 07/28/25 12:40 Sodium Chloride 0.9% 10ml Vial IV 08/27/25 12:31 8 ml NEEDED PRN Administration dilute pepcid Discontinued Medications Generic Name Dose Route Start Last Admin Trade Name Niurka PRN Reason Stop Dose Admin Famotidine 20 mg 07/28/25 12:32 07/28/25 12:40 Famotidine 20mg/2ml Vial IV 07/28/25 12:33 20 mg ONCE ONE Administration Sodium Chloride 1,000 mls @ 999 mls/hr 07/28/25 12:32 07/28/25 12:40 Sod Chlor 0.9% 1000ml Bag IV 07/28/25 13:32 999 mls/hr .Q1H1M ONE Administration Iopamidol 75 ml 07/28/25 13:22 07/28/25 13:31 Iopamidol-370 (76%);100ml Bottle IV 07/28/25 13:23 75 ml ONCE ONE Administration Ketorolac Tromethamine 30 mg 07/28/25 13:13 07/28/25 13:29 Ketorolac 30mg/Ml Vial IV 07/28/25 13:14 30 mg ONCE ONE Administration Ondansetron HCl 4 mg 07/28/25 12:37 07/28/25 12:57 Ondansetron 4mg/2ml Vial IV 07/28/25 12:38 4 mg ONCE ONE Administration Potassium Chloride 60 meq 07/28/25 13:06 07/28/25 13:29 Potassium Chloride 20meq Tab PO 07/28/25 13:07 60 meq ONCE ONE Administration Sodium Chloride 10 ml 07/28/25 13:22 07/28/25 13:31 Sodium Chloride 0.9% 10ml Syr (Rad Only) IV 07/28/25 13:23 10 ml ONCE ONE Administration ORDERS Category Date Time Status CT abdomen pelvis w con Stat Cat Scan 07/28/25 12:32 Completed CBC [Complete Blood Count Auto Diff] Stat Lab 07/28/25 12:25 Completed Comprehensive Metabolic Panel Stat Lab 07/28/25 12:25 Completed Diarrhea 23 Panel, PCR Stat Lab 07/28/25 13:06 Completed Lipase Stat Lab 07/28/25 12:25 Completed Magnesium Stat Lab 07/28/25 12:25 Completed Rapid PCR Covid and Flu A/B Stat Lab 07/28/25 12:43 Completed UA [Urinalysis and Microscopic] Stat Lab 07/28/25 13:10 Completed Medical Decision Narrative: patient is a 55-year-old female presenting to the emergency department for evaluation of nausea, vomiting diarrhea since Sunday. Patient is hemodynamically stable and nontoxic-appearing upon arrival, afebrile. Differential diagnosis includes pancreatitis, ACS, C. difficile, among. Workup will be conducted with hematologic labs, specific imaging. Initial inventions include crystalloid bolus, analgesics, antibiotics. Initial workup reviewed by me hematologic labs are remarkable for White count of 3.6, white count of 9.3 white count of 13, potassium of 3.3, gap of 19.3, BUN 32, creatinine 0.8 stool sample sent and came back for C. difficile and norovirus. I have prescribed all 3 of the appropriate medications to her pharmacy. Fidaxomicin, vancomycin and Flagyl were E scribed to her pharmacy. Patient tested positive for C. difficile and norovirus. Called pharmacy to try to tell me what the prices and they said they did not do that. I also talked to Dr. Sharif and Dr. Garcia about this. She safe for discharge home with follow-up with her PCP. Critical Care Critical Care Time Critical Care Time: No
[2025-07-28 12:40] LABS: Hematocrit 40.4 % (37.0-47.0); Hemoglobin 14.0 g/dL (12.2-16.2); Immature Granulocytes % 0.5 %; Mean Corpuscular HGB Conc 34.7 g/dL (31.8-35.4); Mean Corpuscular Hemoglobin 29.4 pg (27.0-31.2); Mean Corpuscular Volume 84.7 fl (81-99); Nucleated Red Blood Cells % 0 %; Platelet Count 294 K/mm3 (142-424); Red Blood Count 4.77 M/mm3 (4.20-5.40); Red Cell Distribution Width-SD 40.8 fL; White Blood Count 13.0 K/mm3 (4.8-10.8)
[2025-07-28] MEDS: FAMOTIDINE 20MG/2ML VIAL 20 MG IV (12:40)
[2025-07-28] MEDS: SODIUM CHLORIDE 0.9% 10ML VIAL 8 ML IV (12:40)
[2025-07-28] MEDS: 0.9 % SODIUM CHLORIDE 1000ML 1,000 ML 999 ML IV (12:40)
[2025-07-28 12:52] LABS: Alanine Aminotransferase 21 U/L (12-78); Albumin Level 4.7 g/dl (3.5-5.0); Albumin/Globulin Ratio 1.3 (1.1-1.8); Alkaline Phosphatase 47 U/L (38-126); Anion Gap 19.3 mEq/L (5-15); Aspartate Amino Transferase 30 U/L (14-36); Bilirubin,Total 1.0 mg/dl (0.2-1.3); Blood Urea Nitrogen 3 mg/dl (7-17); Calcium 9.8 mg/dl (8.4-10.2); Carbon Dioxide 20 mmol/L (22.0-30.0); Chloride 107 mmol/L (98-107); Creatinine Clearance Estimated 93 mL/min (50-200); Creatinine,Serum 0.80 mg/dl (0.52-1.04); Estimated Glomerular Filt Rate 74 ml/min (>60); GFR (African American) 90 ML/MIN (>60); Globulin 3.5 g/dL (1.3-3.2); Glucose 105 mg/dl (74-100); Lipase 115 U/L (23-300); Magnesium 2.0 mg/dl (1.6-2.3); Potassium 3.3 mmoL/L (3.5-5.1); Sodium 143 mmol/L (136-145); Total Protein,Serum 8.2 g/dl (6.3-8.2)
[2025-07-28 12:53] LABS: Coronavirus 19, PCR Not Detected (NotDetected); Influenza A, PCR Not Detected (NotDetected); Influenza B, PCR Not Detected (NotDetected)
[2025-07-28] MEDS: ONDANSETRON 4MG/2ML VIAL 4 MG IV (12:57)
[2025-07-28 13:11] LABS: Adenovirus F 40/41, stool Not Detected (NotDetected); Cyclospora Cayetanesis Not Detected (NotDetected); Plesimonas Shigalloides, PCR Not Detected (NotDetected); Salmonella, PCR Not Detected (NotDetected); Shiga-like toxin E coli Not Detected (NotDetected); Shigella Enterovasive E coli Not Detected (NotDetected); Vibrio, PCR Not Detected (NotDetected); Yersinia Entercolitica, PCR Not Detected (NotDetected)
[2025-07-28 13:17] LABS: Microscopic, Urine URINE MICROSCOPIC (MICROSCOPIC)
[2025-07-28 13:18] LABS: Bilirubin,Urine Negative (Negative); Color,Urine YELLOW (Yellow); Glucose,Urine (UA) Negative (Negative); Ketones,Urine Negative (Negative); Leukocyte Esterase,Urine Negative (Negative); PH,Urine 6.0 (5.0-8.5); Protein,Urine Negative (Negative); Urobilinogen,Urine 0.2 EU/dl (0.2)
[2025-07-28 13:21] LABS: Specific Gravity, Urine 1.005 (1.005-1.030)
[2025-07-28] MEDS: KETOROLAC 30MG/ML VIAL 30 MG IV (13:29)
[2025-07-28] MEDS: POTASSIUM CHLORIDE 20MEQ TAB 60 MEQ PO (13:29)
[2025-07-28] MEDS: SODIUM CHLORIDE 0.9% 10ML SYR (RAD ONLY) 10 ML IV (13:31)
[2025-07-28] MEDS: IOPAMIDOL-370 (76%);100ML BOTTLE 75 ML IV (13:31)
[2025-07-28 15:40] LABS: Clostridium Difficile A/B, PCR Detected (NotDetected)
== END 2025-07-28 16:55 | disposition home or self-care (01) ==
PROVIDERS: Nurse Practitioner; Emergency Provider Student in an Organized Health Care Education/Training Program; PCP Family Medicine
DX: A04.72 Enterocolitis due to Clostridium difficile, not specified as recurrent (principal); A08.11 Acute gastroenteropathy due to Norwalk agent; E87.6 Hypokalemia; R11.2 Nausea with vomiting, unspecified; R53.1 Weakness
CPT/HCPCS: 74177; 80053; 81001; 83690; 83735; 85025; 87507; 87636; 96361; 96374; 96375; 99285; J1308; J1885; J2405; J7030; Q9967